=== PATIENT | female | born 1935 | race Caucasian/White ===

== ENCOUNTER → 2017-02-26 | Outpatient (CLI) | payer MEDICARE, OTHER ==
[~2017-02-26] MED LIST: /ESOM40CA; /WARF25TA; ACET65TA; ASPI81TA3 OR; BACTRIMDS PO; BISA10SU2; BISA5TA; CALC12502; CIPR500T19; COLA100C2; DIOVAN160 PO; DIOVANH160 PO; DOXYCYC100 PO; DRISDOL50 PO; EFFEXORXL7 PO; FLON0.05; HCTZ25 PO; LASIX40 PO; LISINOPR10 PO; MAALSUS; MILKSUS; MOTRIN800 PO; NAPROSY375 PO; NASONEX NASAL; OXYC10TA56; PERC5TAB8; RELAFEN PO; SENN8.6T14; THERGRAN; TRAM50TA2; TRAM50TA2 OR; VITAMIN D50000 UNT; XENICAL120 PO; ZITHROM500 PO; ZOLOFT100 PO; ZOLOFT50 PO; [UNRECOGNIZED DRUG - OTHER]
--- NOTE | 2017-02-26 14:27 | REP ---
DUPLEX CAROTID SONOGRAPHY: HISTORY: Syncope and collapse. COMPARISON STUDY: October 11, 2010 FINDINGS: Antegrade flow is observed in both vertebral arteries. RIGHT CAROTID: The right common carotid artery shows mild diffuse intimal thickening. There is mild mixed plaquing in the bulb and proximal ICA on two-dimensional scanning. Color flow and spectral Doppler interrogation are unremarkable on the right. VELOCITY CHART RIGHT CAROTID: Right CCA PSV 116 cm/s Right ICA PSV 84 EDV 23 Right ECA PSV 61 Right ICA/CCA ratio, normal 0.7 IMPRESSION: 16-49% category narrowing in the right ICA by Doppler velocity criteria. Doppler velocities have not increased in the interval since the prior ultrasound study. LEFT CAROTID: The left common carotid artery shows mild soft plaquing and diffuse intimal thickening. There is soft plaquing in the bulb and proximal ICA on two-dimensional scanning on the left side. Bifurcation is high on the left. This precludes visualization of the distal ICA on the left. Color flow and spectral Doppler interrogation are unremarkable. VELOCITY CHART LEFT CAROTID: Left CCA PSV 88 cm/s Left ICA PSV 46 EDV 13 Left ECA PSV 70 Left ICA/CCA ratio, normal 0.61 IMPRESSION: 16-49% category narrowing in the left ICA by Doppler velocity criteria. Doppler velocities have not increased in the left ICA since the prior study. Signed by Arturo Sky MD 02/26/2017 03:18 P
== END ==
LOC: M RAD 12:53
PROVIDERS: ATTEND Neurological Surgery
DX: R55 Syncope and collapse (principal)

== ENCOUNTER → 2017-03-14 | Outpatient (REF) | payer MEDICARE, OTHER ==
[2017-03-14 10:00] LABS: BASO % 0.8 % (0.0-1.0); EOS # 0.2 K/mm3 (0.0-0.50); EOS % 3.9 % (0.0-3.0); LARGE UNSTAINED CELL # 0.2 K/mm3 (0.0-0.4); LARGE UNSTAINED CELL % 2.7 % (0.0-4.0); LYMPH # 1.2 K/mm3 (1.5-4.5); LYMPH % 20.5 % (24.0-44.0); MEAN CORPUSCULAR HGB CONC 32.9 g/dl (32.0-36.5); MEAN CORPUSCULAR VOLUME 94.1 fl (80.0-96.0); MONO # 0.3 K/mm3 (0.0-0.8); MONO % 4.7 % (0.0-5.0); NEUTROPHILS # 3.8 K/mm3 (1.8-7.7); NEUTROPHILS % 67.3 % (36.0-66.0); PLATELET COUNT, AUTOMATED 255 k/mm3 (150-450); RED CELL DISTRIBUTION WIDTH 13.6 % (11.5-14.5); WHITE BLOOD COUNT 5.6 K/mm3 (4.0-10.0)
[2017-03-14 10:11] LABS: ALBUMIN 3.6 GM/DL (3.2-5.2); ALBUMIN/GLOBULIN RATIO 1.13 (1.00-1.93); ALKALINE PHOSPHATASE 74 U/L (45-117); ALT/SGPT 29 U/L (12-78); ANION GAP 5 MEQ/L (8-16); AST/SGOT 23 U/L (15-37); BILIRUBIN,TOTAL 0.4 MG/DL (0.2-1.0); BLOOD UREA NITROGEN 21 MG/DL (7-18); CALCIUM LEVEL 8.8 MG/DL (8.8-10.2); CARBON DIOXIDE LEVEL 31 MEQ/L (21-32); CHLORIDE LEVEL 107 MEQ/L (98-107); CHOLESTEROL LEVEL 211 MG/DL (<200); CREATININE FOR GFR 0.84 MG/DL (0.55-1.02); GLOMERULAR FILTRATION RATE > 60.0 (>32); GLUCOSE, FASTING 89 MG/DL (83-110); POTASSIUM SERUM 4.1 MEQ/L (3.5-5.1); SODIUM LEVEL 143 MEQ/L (136-145); TOTAL PROTEIN 6.8 GM/DL (6.4-8.2); TRIGLYCERIDES LEVEL 56 MG/DL (<150)
[2017-03-14 10:24] LABS: VITAMIN B12 LEVEL 828 PG/ML (247-911)
== END ==
LOC: M LAB REF 09:33
PROVIDERS: ATTEND Nurse Practitioner Family
DX: I10 Essential (primary) hypertension (principal); E53.8 Deficiency of other specified B group vitamins; E55.9 Vitamin D deficiency, unspecified; E78.4 Other hyperlipidemia

== ENCOUNTER → 2017-03-26 | Outpatient (REF) | payer MEDICARE, OTHER | LOC: M SMT 17:06 | PROVIDERS: ATTEND Nurse Practitioner Women's Health | DX: R39.15 Urgency of urination (principal) | CPT/HCPCS: 81001; 87088; 87186; G0463 ==

== ENCOUNTER → 2017-04-11 | Outpatient (REF) | payer MEDICARE, OTHER | LOC: M SMT 09:09 | PROVIDERS: ATTEND Nurse Practitioner Women's Health | DX: N39.0 Urinary tract infection, site not specified (principal) ==

== ENCOUNTER → 2017-05-23 | Outpatient (CLI) | payer MEDICARE, OTHER ==
--- NOTE | 2017-05-23 16:21 | REP ---
Left elbow four views : Comparison is 02/09/2005. There is no interval change. There is no fracture or dislocation. Mineralization and joint spaces are normal. There are no calcifications or foreign bodies. Impression: Negative left elbow . Signed by Manuel Fitch MD 05/23/2017 04:11 P
== END ==
LOC: M WUC 13:28
PROVIDERS: ATTEND Physician Assistant
DX: S50.02XA Contusion of left elbow, initial encounter (principal); X58.XXXA Exposure to other specified factors, initial encounter; Y92.89 Other specified places as the place of occurrence of the external cause; Y93.89 Activity, other specified; Y99.8 Other external cause status

== ENCOUNTER → 2017-09-12 | Outpatient (CLI) | payer MEDICARE, OTHER ==
[2017-09-12 14:09] LABS: BASO # 0.1 10^3/uL (0.0-0.2); BASO % 1.7 % (0.0-1.0); EOS # 0.2 10^3/uL (0.0-0.50); IMMATURE GRANULOCYTE % 0.2 % (0-0); LYMPH # 1.4 10^3/uL (1.5-4.5); LYMPH % 29.2 % (24.0-44.0); MEAN CORPUSCULAR HEMOGLOBIN 29.8 pg (27.0-33.0); MEAN CORPUSCULAR HGB CONC 32.5 g/dl (32.0-36.5); MEAN CORPUSCULAR VOLUME 91.7 fl (80.0-96.0); MONO # 0.3 10^3/uL (0.0-0.8); MONO % 7.3 % (0.0-5.0); NEUTROPHILS # 2.6 10^3/uL (1.8-7.7); NEUTROPHILS % 56.6 % (36.0-66.0); PLATELET COUNT, AUTOMATED 257 10^3/uL (150-450); RED CELL DISTRIBUTION WIDTH 14.5 % (11.5-14.5); WHITE BLOOD COUNT 4.6 10^3/uL (4.0-10.0)
[2017-09-12 14:20] LABS: ALBUMIN 3.5 GM/DL (3.2-5.2); ALBUMIN/GLOBULIN RATIO 1.17 (1.00-1.93); ALKALINE PHOSPHATASE 81 U/L (45-117); ALT/SGPT 26 U/L (12-78); ANION GAP 6 MEQ/L (8-16); AST/SGOT 23 U/L (7-37); BILIRUBIN,TOTAL 0.4 MG/DL (0.2-1.0); BLOOD UREA NITROGEN 17 MG/DL (7-18); CARBON DIOXIDE LEVEL 32 MEQ/L (21-32); CHLORIDE LEVEL 104 MEQ/L (98-107); CHOLESTEROL LEVEL 217 MG/DL (<200); CREATININE FOR GFR 0.76 MG/DL (0.55-1.02); GLOMERULAR FILTRATION RATE > 60.0 (>32); GLUCOSE, FASTING 84 MG/DL (83-110); POTASSIUM SERUM 4.4 MEQ/L (3.5-5.1); SODIUM LEVEL 142 MEQ/L (136-145); TOTAL PROTEIN 6.5 GM/DL (6.4-8.2); TRIGLYCERIDES LEVEL 57 MG/DL (<150)
== END ==
LOC: M WUC 09:04
PROVIDERS: ATTEND Nurse Practitioner Family
DX: I10 Essential (primary) hypertension (principal); E55.9 Vitamin D deficiency, unspecified

== ENCOUNTER → 2017-09-26 | Outpatient (CLI) | payer MEDICARE, OTHER ==
--- NOTE | 2017-09-26 14:32 | REP ---
Bilateral screening digital mammogram: There are no palpable abnormalities or other breast complaints. The patient states she had a clinical breast exam in September 2017. Comparison 09/04/2013. There is dense heterogeneous breast parenchyma that could obscure a lesion. This is unchanged. There are benign calcifications, unchanged. There is a focal zone of increased breast parenchymal density superolaterally on the left that is stable and unchanged. There are surgical clips medially in the right breast, unchanged. There has been no interval development of masses, areas of structural distortion or clusters of microcalcifications typical of malignancy. Impression: There is no evidence of malignancy. BI-RADS category 2 benign findings. The patient should have a repeat mammogram in 1 year. This mammogram was interpreted with the aid of an FDA-approved computer-aided detection system. A. Negative x-ray reports should not delay biopsy if a dominant or clinically suspicious mass is present. B. Not all breast cancers are identified by x-ray. C. Adenosis and dense breasts may obscure an underlying neoplasm. The patient letter being requested is M1 dense breasts.
== END ==
LOC: M WHC 11:03
PROVIDERS: ATTEND Nurse Practitioner Women's Health
DX: Z12.31 Encounter for screening mammogram for malignant neoplasm of breast (principal); Z85.3 Personal history of malignant neoplasm of breast

== ENCOUNTER → 2017-11-27 | Outpatient (CLI) | payer MEDICARE, OTHER | LOC: M WHC 10:38 | DX: M85.80 Other specified disorders of bone density and structure, unspecified site (principal); Z78.0 Asymptomatic menopausal state | CPT/HCPCS: 77080 ==

== ENCOUNTER → 2018-03-14 | Outpatient (CLI) | payer MEDICARE, OTHER ==
[2018-03-14 09:33] LABS: BASO # 0.1 10^3/uL (0.0-0.2); BASO % 1.7 % (0.0-1.0); EOS # 0.3 10^3/uL (0.0-0.50); HEMATOCRIT 41.6 % (36.0-47.0); HEMOGLOBIN 13.8 g/dl (12.0-15.5); LYMPH # 1.3 10^3/uL (1.5-4.5); LYMPH % 27.1 % (24.0-44.0); MEAN CORPUSCULAR HEMOGLOBIN 30.3 pg (27.0-33.0); MEAN CORPUSCULAR HGB CONC 33.2 g/dl (32.0-36.5); MEAN CORPUSCULAR VOLUME 91.2 fl (80.0-96.0); MONO # 0.4 10^3/uL (0.0-0.8); MONO % 7.3 % (0.0-5.0); NEUTROPHILS # 2.8 10^3/uL (1.8-7.7); NEUTROPHILS % 57.9 % (36.0-66.0); PLATELET COUNT, AUTOMATED 250 10^3/uL (150-450); RED BLOOD COUNT 4.56 10^6/uL (4.00-5.40); RED CELL DISTRIBUTION WIDTH 14.4 % (11.5-14.5); WHITE BLOOD COUNT 4.8 10^3/uL (4.0-10.0)
[2018-03-14 09:56] LABS: ALBUMIN 3.6 GM/DL (3.2-5.2); ALBUMIN/GLOBULIN RATIO 1.16 (1.00-1.93); ALKALINE PHOSPHATASE 79 U/L (45-117); ALT/SGPT 28 U/L (12-78); ANION GAP 2 MEQ/L (8-16); AST/SGOT 23 U/L (7-37); BILIRUBIN,TOTAL 0.5 MG/DL (0.2-1.0); BLOOD UREA NITROGEN 15 MG/DL (7-18); CALCIUM LEVEL 8.6 MG/DL (8.8-10.2); CARBON DIOXIDE LEVEL 32 MEQ/L (21-32); CHLORIDE LEVEL 108 MEQ/L (98-107); CHOLESTEROL LEVEL 207 MG/DL (<200); CHOLESTEROL RISK RATIO 2.029 (<5); CREATININE FOR GFR 0.78 MG/DL (0.55-1.30); GLOMERULAR FILTRATION RATE > 60.0 (>32); GLUCOSE, FASTING 81 MG/DL (70-100); HDL CHOLESTEROL 102 MG/DL (>40); LDL CHOLESTEROL 96.4 MG/DL (<100); NON-HDL-C 105 MG/DL; POTASSIUM SERUM 4.3 MEQ/L (3.5-5.1); SODIUM LEVEL 142 MEQ/L (136-145); TOTAL PROTEIN 6.7 GM/DL (6.4-8.2); TRIGLYCERIDES LEVEL 43 MG/DL (<150)
[2018-03-14 14:48] LABS: TOTAL 25(OH) VITAMIN D 66.3 NG/ML (30.0-100.0)
== END ==
LOC: M WUC 08:05
DX: I10 Essential (primary) hypertension (principal); E55.9 Vitamin D deficiency, unspecified; E78.4 Other hyperlipidemia
CPT/HCPCS: 80053

== ENCOUNTER → 2018-09-04 | Outpatient (CLI) | payer MEDICARE, OTHER ==
[2018-09-04 13:25] LABS: ALBUMIN 3.6 GM/DL (3.2-5.2); ALKALINE PHOSPHATASE 72 U/L (45-117); ALT/SGPT 29 U/L (12-78); ANION GAP 3 MEQ/L (8-16); AST/SGOT 22 U/L (7-37); BILIRUBIN,TOTAL 0.4 MG/DL (0.2-1.0); BLOOD UREA NITROGEN 20 MG/DL (7-18); CALCIUM LEVEL 8.6 MG/DL (8.8-10.2); CARBON DIOXIDE LEVEL 30 MEQ/L (21-32); CHLORIDE LEVEL 107 MEQ/L (98-107); CHOLESTEROL LEVEL 219 MG/DL (<200); CREATININE FOR GFR 0.77 MG/DL (0.55-1.30); GLOMERULAR FILTRATION RATE > 60.0 (>32); GLUCOSE, FASTING 90 MG/DL (70-100); HDL CHOLESTEROL 100 MG/DL (>40); LDL CHOLESTEROL 110 MG/DL (<100); NON-HDL-C 119 MG/DL; POTASSIUM SERUM 4.2 MEQ/L (3.5-5.1); SODIUM LEVEL 140 MEQ/L (136-145); TOTAL PROTEIN 6.6 GM/DL (6.4-8.2); TRIGLYCERIDES LEVEL 43 MG/DL (<150)
[2018-09-04 13:26] LABS: BASO # 0.1 10^3/uL (0.0-0.2); EOS # 0.3 10^3/uL (0.0-0.50); EOS % 7.3 % (0.0-3.0); HEMATOCRIT 41.7 % (36.0-47.0); HEMOGLOBIN 13.5 g/dl (12.0-15.5); IMMATURE GRANULOCYTE % 0.2 % (0-3.0); LYMPH # 1.5 10^3/uL (1.5-4.5); LYMPH % 33.5 % (24.0-44.0); MEAN CORPUSCULAR HEMOGLOBIN 30.2 pg (27.0-33.0); MEAN CORPUSCULAR HGB CONC 32.4 g/dl (32.0-36.5); MEAN CORPUSCULAR VOLUME 93.3 fl (80.0-96.0); MONO # 0.4 10^3/uL (0.0-0.8); NEUTROPHILS # 2.2 10^3/uL (1.8-7.7); PLATELET COUNT, AUTOMATED 236 10^3/uL (150-450); RED BLOOD COUNT 4.47 10^6/uL (4.00-5.40); RED CELL DISTRIBUTION WIDTH 14.5 % (11.5-14.5); WHITE BLOOD COUNT 4.5 10^3/uL (4.0-10.0)
[2018-09-04 13:32] LABS: TOTAL 25(OH) VITAMIN D 78.4 NG/ML (30.0-100.0)
== END ==
LOC: M WUC 08:49
DX: I10 Essential (primary) hypertension (principal); E55.9 Vitamin D deficiency, unspecified; E78.49 Other hyperlipidemia
CPT/HCPCS: 80053

== ENCOUNTER → 2018-09-16 | Outpatient (CLI) | payer MEDICARE, OTHER | LOC: M WHC 10:42 | DX: Z12.31 Encounter for screening mammogram for malignant neoplasm of breast (principal); Z78.0 Asymptomatic menopausal state; Z92.3 Personal history of irradiation; Z92.29 Personal history of other drug therapy; Z85.3 Personal history of malignant neoplasm of breast; Z80.0 Family history of malignant neoplasm of digestive organs | CPT/HCPCS: 77067 ==

== ENCOUNTER → 2018-09-18 | Outpatient (CLI) | payer MEDICARE, OTHER | LOC: M WUC 13:49 | DX: I10 Essential (primary) hypertension (principal) | CPT/HCPCS: 71046 ==

== ENCOUNTER → 2018-11-01 | Outpatient (CLI) | payer MEDICARE, OTHER ==
--- NOTE | 2018-11-01 11:14 | REP ---
UNILATERAL LEFT RIBS, PA CHEST, FIVE VIEWS: HISTORY: Chest pain. Linear density is present in the left lower lobe consistent with scar. The right lung is clear. The cardiac silhouette is enlarged. The pulmonary vasculature is normal in appearance. The bony structure is intact. There is scoliosis of the mid and lower thoracic spine convex to the right. IMPRESSION: Cardiomegaly. Electronically Signed by Robe Brown MD 11/01/2018 11:19 A
== END ==
LOC: M WUC 10:26
PROVIDERS: ATTEND Nurse Practitioner Family
DX: R07.9 Chest pain, unspecified (principal)

== ENCOUNTER → 2019-04-04 | Outpatient (CLI) | payer MEDICARE, OTHER ==
[~2019-04-04] MED LIST changes: -/ESOM40CA; -/WARF25TA; +COUM1TAB18; +NEXI1CAP3
[2019-04-04 09:19] LABS: BASO # 0.1 10^3/uL (0.0-0.2); BASO % 1.7 % (0.0-1.0); EOS # 0.2 10^3/uL (0.0-0.50); EOS % 4.9 % (0.0-3.0); HEMATOCRIT 41.4 % (36.0-47.0); HEMOGLOBIN 13.6 g/dl (12.0-15.5); LYMPH # 1.4 10^3/uL (1.5-4.5); LYMPH % 33.7 % (24.0-44.0); MEAN CORPUSCULAR HEMOGLOBIN 31.3 pg (27.0-33.0); MEAN CORPUSCULAR HGB CONC 32.9 g/dl (32.0-36.5); MEAN CORPUSCULAR VOLUME 95.4 fl (80.0-96.0); MONO # 0.3 10^3/uL (0.0-0.8); MONO % 8.3 % (0.0-5.0); NEUTROPHILS # 2.1 10^3/uL (1.8-7.7); NEUTROPHILS % 51.2 % (36.0-66.0); PLATELET COUNT, AUTOMATED 234 10^3/uL (150-450); RED BLOOD COUNT 4.34 10^6/uL (4.00-5.40); WHITE BLOOD COUNT 4.1 10^3/uL (4.0-10.0)
[2019-04-04 09:36] LABS: ALBUMIN 3.5 GM/DL (3.2-5.2); ALT/SGPT 29 U/L (12-78); BILIRUBIN,TOTAL 0.4 MG/DL (0.2-1.0); BLOOD UREA NITROGEN 15 MG/DL (7-18); CALCIUM LEVEL 8.9 MG/DL (8.8-10.2); CARBON DIOXIDE LEVEL 30 MEQ/L (21-32); CHLORIDE LEVEL 106 MEQ/L (98-107); CHOLESTEROL LEVEL 219 MG/DL (<200); CHOLESTEROL RISK RATIO 2.105 (<5); CREATININE FOR GFR 0.79 MG/DL (0.55-1.30); GLOMERULAR FILTRATION RATE > 60.0 (>32); GLUCOSE, FASTING 84 MG/DL (70-100); HDL CHOLESTEROL 104 MG/DL (>40); LDL CHOLESTEROL 104 MG/DL (<100); NON-HDL-C 115 MG/DL; POTASSIUM SERUM 3.9 MEQ/L (3.5-5.1); SODIUM LEVEL 141 MEQ/L (136-145); TOTAL PROTEIN 6.6 GM/DL (6.4-8.2); TRIGLYCERIDES LEVEL 55 MG/DL (<150)
[2019-04-04 09:47] LABS: TOTAL 25(OH) VITAMIN D 67.2 NG/ML (30.0-100.0)
--- NOTE | 2019-04-05 16:56 | ECGEPIP ---
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
== END ==
LOC: M LAB 08:39
PROVIDERS: ATTEND Nurse Practitioner Family
DX: I10 Essential (primary) hypertension (principal); E55.9 Vitamin D deficiency, unspecified; Z01.818 Encounter for other preprocedural examination; E78.49 Other hyperlipidemia

== ENCOUNTER → 2019-06-03 | Outpatient (REF) | payer MEDICARE, OTHER | LOC: M SFHCPLAZ 08:26 | PROVIDERS: ATTEND Nurse Practitioner Family | DX: Z00.00 Encounter for general adult medical examination without abnormal findings (principal); R53.83 Other fatigue; Z53.8 Procedure and treatment not carried out for other reasons ==

== ENCOUNTER → 2019-06-03 | Outpatient (CLI) | payer MEDICARE, OTHER ==
[2019-06-03 13:10] LABS: BASO # 0.1 10^3/uL (0.0-0.2); BASO % 1.3 % (0.0-1.0); EOS # 0.2 10^3/uL (0.0-0.50); EOS % 2.7 % (0.0-3.0); HEMATOCRIT 40.1 % (36.0-47.0); HEMOGLOBIN 13.2 g/dl (12.0-15.5); LYMPH # 1.8 10^3/uL (1.5-4.5); LYMPH % 32.6 % (24.0-44.0); MEAN CORPUSCULAR HEMOGLOBIN 31.4 pg (27.0-33.0); MEAN CORPUSCULAR HGB CONC 32.9 g/dl (32.0-36.5); MEAN CORPUSCULAR VOLUME 95.2 fl (80.0-96.0); MONO # 0.5 10^3/uL (0.0-0.8); MONO % 9.9 % (0.0-5.0); NEUTROPHILS # 2.9 10^3/uL (1.8-7.7); NEUTROPHILS % 53.3 % (36.0-66.0); PLATELET COUNT, AUTOMATED 223 10^3/uL (150-450); RED BLOOD COUNT 4.21 10^6/uL (4.00-5.40); WHITE BLOOD COUNT 5.5 10^3/uL (4.0-10.0)
[2019-06-03 13:25] LABS: ALBUMIN 3.8 GM/DL (3.2-5.2); ALT/SGPT 28 U/L (12-78); BILIRUBIN,TOTAL 0.4 MG/DL (0.2-1.0); BLOOD UREA NITROGEN 14 MG/DL (7-18); CALCIUM LEVEL 9.1 MG/DL (8.8-10.2); CARBON DIOXIDE LEVEL 28 MEQ/L (21-32); CHLORIDE LEVEL 105 MEQ/L (98-107); CREATININE FOR GFR 0.77 MG/DL (0.55-1.30); GLOMERULAR FILTRATION RATE > 60.0 (>32); GLUCOSE, FASTING 88 MG/DL (70-100); POTASSIUM SERUM 4.5 MEQ/L (3.5-5.1); SODIUM LEVEL 141 MEQ/L (136-145); TOTAL PROTEIN 6.5 GM/DL (6.4-8.2)
== END ==
LOC: M WUC 10:11
PROVIDERS: ATTEND Nurse Practitioner Family
DX: R53.83 Other fatigue (principal)
CPT/HCPCS: 36415; 80053; 84443; 85025; G0463

== ENCOUNTER 2019-08-11 13:04 | Emergency (ER) | payer MEDICARE, OTHER ==
[~2019-08-11] VITALS: Ht 167.6 cm; Wt 75.9 kg
[2019-08-11] MEDS ORDERED: COQ-100C5 PO (13:59)
[2019-08-11] MEDS ORDERED: LEXA1TAB2 PO (13:59)
[2019-08-11] MEDS ORDERED: NYST1POW9 TOP (13:59)
[2019-08-11] MEDS ORDERED: IBUP200C25 PO (13:59)
[2019-08-11] MEDS ORDERED: DIGECAP7 PO (13:59)
[2019-08-11] MEDS ORDERED: CVS50CAP PO (13:59)
[2019-08-11] MEDS ORDERED: CHOL100029 PO (13:59)
[2019-08-11] MEDS ORDERED: FISH1000 PO (13:59)
[2019-08-11] MEDS ORDERED: MIRA3350 PO (13:59)
[2019-08-11] MEDS ORDERED: KELP150T2 PO (13:59)
--- NOTE | 2019-08-11 15:02 | REP ---
CT brain: 08/11/2019. Indication: Stroke. Comparison: 07/10/2012. Technique: Unenhanced axial CT images of the brain were obtained from skull base to vertex. Findings: There is no acute intracranial hemorrhage, acute cortical infarction, mass effect or hydrocephalous. Age-related volume loss is present. Patchy areas of bilateral cerebral hemisphere white matter hypoattenuation are noted most consistent with sequelae of chronic small vessel disease. Impression: No acute intracranial process. Sequelae of chronic microangiopathic ischemic disease. Electronically Signed by Tye Arias DO 08/11/2019 02:54 P
[2019-08-11 15:11] LABS: BASO # 0.1 10^3/uL (0.0-0.2); BASO % 0.9 % (0.0-1.0); EOS % 0.7 % (0.0-3.0); HEMATOCRIT 39.1 % (36.0-47.0); LYMPH % 16.6 % (24.0-44.0); MEAN CORPUSCULAR HEMOGLOBIN 30.7 pg (27.0-33.0); MEAN CORPUSCULAR HGB CONC 33.2 g/dl (32.0-36.5); MEAN CORPUSCULAR VOLUME 92.2 fl (80.0-96.0); MONO # 0.3 10^3/uL (0.0-0.8); MONO % 5.6 % (0.0-5.0); NEUTROPHILS # 4.4 10^3/uL (1.5-8.5); NEUTROPHILS % 75.9 % (36.0-66.0); PLATELET COUNT, AUTOMATED 211 10^3/uL (150-450); RED BLOOD COUNT 4.24 10^6/uL (4.00-5.40); WHITE BLOOD COUNT 5.7 10^3/uL (4.0-10.0)
[2019-08-11 15:22] LABS: INR 0.96; PROTHROMBIN TIME 12.5 SECONDS (11.8-14.0)
[2019-08-11 15:23] LABS: PARTIAL THROMBOPLASTIN TIME 28.8 SECONDS (25.0-38.4)
--- NOTE | 2019-08-11 15:34 | REP ---
Single view chest: 08/11/2019. Indication: Stroke. Comparison: 09/18/2018. Findings: The lungs are clear. There is no pleural effusion or pneumothorax. Chronic interstitial changes are noted. The cardiac silhouette is at the upper limits of normal in size. Scoliosis and degenerative sequelae of the thoracic spine are present. Impression: Clear lungs. Electronically Signed by Tye Arias DO 08/11/2019 03:26 P
[2019-08-11 15:40] LABS: BLOOD UREA NITROGEN 13 MG/DL (7-18); CALCIUM LEVEL 8.8 MG/DL (8.8-10.2); CARBON DIOXIDE LEVEL 31 MEQ/L (21-32); CHLORIDE LEVEL 105 MEQ/L (98-107); CK-MB VALUE MASS 2.6 NG/ML (<3.6); CPK CREATINE PHOSPHOKINASE 118 U/L (26-192); CREATININE FOR GFR 0.79 MG/DL (0.55-1.30); GLOMERULAR FILTRATION RATE > 60.0 (>32); GLUCOSE, FASTING 164 MG/DL (70-100); SODIUM LEVEL 138 MEQ/L (136-145); TROPONIN I < 0.02 NG/ML (< 0.10)
[2019-08-11] MEDS ORDERED: NS 500 ML IV ONE (16:15)
[2019-08-11] MEDS ORDERED: MECLIZINE 25 MG TABLET PO ONE (16:30)
--- NOTE | 2019-08-11 19:51 | REPVR ---
PROCEDURE INFORMATION: Exam: MR Head Without Contrast Exam date and time: 08/11/2019 7:33 PM Clinical history: 83 years old, female; Dizziness; Additional info: Dizzy RO cerebellar CVA TECHNIQUE: Imaging protocol: MR of the head without contrast. COMPARISON: CT Head without contrast 08/11/2019 2:42 PM FINDINGS: Brain: No acute infarct. Bilateral cataract surgery. Moderate chronic microvascular ischemic changes. Ventricles: Normal. No ventriculomegaly. Bones/joints: Unremarkable. Soft tissues: Unremarkable. Sinuses: Normal as visualized. No acute sinusitis. Mastoid air cells: Normal as visualized. No mastoid effusion. Orbits: See Brain Finding. IMPRESSION: No acute intracranial abnormality. Electronically signed by: Jhonny Ponce On 08/11/2019 19:50:36 PM
--- NOTE | 2019-08-11 19:54 | REPVR ---
PROCEDURE INFORMATION: Exam: MR Angiogram Head Without Contrast, Arteries Exam date and time: 08/11/2019 7:33 PM Clinical history: 83 years old, female; Dizziness and giddiness; Additional info: Dizzy RO cerebellar CVA TECHNIQUE: Imaging protocol: MR angiogram head without contrast. Exam focused on the arteries. 3D rendering: MIP reconstructed images were created and reviewed. COMPARISON: CT Head without contrast 08/11/2019 2:42 PM FINDINGS: Right internal carotid artery: Unremarkable. Intracranial segment is patent with no significant stenosis. No aneurysm. Right anterior cerebral artery: Unremarkable. No occlusion or significant stenosis. No aneurysm. Right middle cerebral artery: Unremarkable. No occlusion or significant stenosis. No aneurysm. Right posterior cerebral artery: Unremarkable. No occlusion or significant stenosis. No aneurysm. Right vertebral artery: Unremarkable. No occlusion or significant stenosis. No aneurysm. Left internal carotid artery: Unremarkable. Intracranial segment is patent with no significant stenosis. No aneurysm. Left anterior cerebral artery: Unremarkable. No occlusion or significant stenosis. No aneurysm. Left middle cerebral artery: Unremarkable. No occlusion or significant stenosis. No aneurysm. Left posterior cerebral artery: Unremarkable. No occlusion or significant stenosis. No aneurysm. Left vertebral artery: Unremarkable. No occlusion or significant stenosis. No aneurysm. Basilar artery: Unremarkable. No occlusion or significant stenosis. No aneurysm. IMPRESSION: No acute abnormality. Electronically signed by: Jhonny Ponce On 08/11/2019 19:54:23 PM
--- NOTE | 2019-08-11 20:39 | ECGEPIP ---
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
[2019-08-11] MEDS ORDERED: MECL-86 PO (20:56)
[2019-08-11 21:00] VITALS: BP 131/61
== END 2019-08-11 21:36 | disposition home or self-care (01) ==
LOC: M ED 13:04 → EDBD 13:04 → M ED 21:36
DX: R42 Dizziness and giddiness (principal); S76.911A Strain of unspecified muscles, fascia and tendons at thigh level, right thigh, initial encounter; I44.0 Atrioventricular block, first degree; I67.82 Cerebral ischemia; X58.XXXA Exposure to other specified factors, initial encounter; I10 Essential (primary) hypertension; M54.5 Low back pain; Z91.048 Other nonmedicinal substance allergy status; Z79.51 Long term (current) use of inhaled steroids; Z79.891 Long term (current) use of opiate analgesic; Z79.899 Other long term (current) drug therapy

== ENCOUNTER → 2019-11-05 | Outpatient (CLI) | payer MEDICARE, OTHER ==
[~2019-11-05] MED LIST changes: +CHOL100029 PO; +COQ-100C5 PO; +CVS50CAP PO; +DIGECAP7 PO; +FISH1000 PO; +IBUP200C25 PO; +KELP150T2 PO; +LEXA1TAB2 PO; +MECL-86 PO; +MIRA3350 PO; +NYST1POW9 TOP
[2019-11-05 11:42] LABS: ALBUMIN 3.7 GM/DL (3.2-5.2); ALT/SGPT 27 U/L (12-78); BILIRUBIN,TOTAL 0.4 MG/DL (0.2-1.0); BLOOD UREA NITROGEN 19 MG/DL (7-18); CALCIUM LEVEL 9.2 MG/DL (8.8-10.2); CARBON DIOXIDE LEVEL 29 MEQ/L (21-32); CHLORIDE LEVEL 106 MEQ/L (98-107); CHOLESTEROL LEVEL 248 MG/DL (<200); CHOLESTEROL RISK RATIO 2.952 (<5); CREATININE FOR GFR 0.78 MG/DL (0.55-1.30); GLOMERULAR FILTRATION RATE > 60.0 (>32); GLUCOSE, FASTING 85 MG/DL (70-100); HDL CHOLESTEROL 84 MG/DL (>40); LDL CHOLESTEROL 149 MG/DL (<100); NON-HDL-C 164 MG/DL; POTASSIUM SERUM 4.9 MEQ/L (3.5-5.1); SODIUM LEVEL 142 MEQ/L (136-145); TOTAL PROTEIN 6.8 GM/DL (6.4-8.2); TRIGLYCERIDES LEVEL 75 MG/DL (<150)
[2019-11-05 12:09] LABS: HEMOGLOBIN A1c 5.2 %
== END ==
LOC: M WUC 09:17
PROVIDERS: ATTEND Nurse Practitioner Family
DX: E78.5 Hyperlipidemia, unspecified (principal); I10 Essential (primary) hypertension; R73.01 Impaired fasting glucose

== ENCOUNTER → 2020-06-25 | Outpatient (CLI) | payer MEDICARE, OTHER ==
[2020-06-25 17:43] LABS: BASO # 0.1 10^3/uL (0.0-0.2); BASO % 1.6 % (0.0-1.0); EOS # 0.2 10^3/uL (0.0-0.5); EOS % 4.3 % (0.0-3.0); HEMOGLOBIN 12.4 g/dl (12.0-15.5); LYMPH # 1.8 10^3/uL (1.5-5.0); LYMPH % 37.8 % (24.0-44.0); MEAN CORPUSCULAR HEMOGLOBIN 30.3 pg (27.0-33.0); MEAN CORPUSCULAR HGB CONC 32.6 g/dl (32.0-36.5); MEAN CORPUSCULAR VOLUME 92.9 fl (80.0-96.0); MONO # 0.4 10^3/uL (0.0-0.8); MONO % 8.6 % (0.0-5.0); NEUTROPHILS # 2.3 10^3/uL (1.5-8.5); NEUTROPHILS % 47.5 % (36.0-66.0); PLATELET COUNT, AUTOMATED 226 10^3/uL (150-450); RED BLOOD COUNT 4.09 10^6/uL (4.00-5.40); WHITE BLOOD COUNT 4.9 10^3/uL (4.0-10.0)
[2020-06-25 19:50] LABS: ALBUMIN 3.7 GM/DL (3.2-5.2); ALT/SGPT 31 U/L (12-78); BILIRUBIN,TOTAL 0.3 MG/DL (0.2-1.0); BLOOD UREA NITROGEN 18 MG/DL (7-18); CALCIUM LEVEL 9.1 MG/DL (8.8-10.2); CARBON DIOXIDE LEVEL 29 MEQ/L (21-32); CHLORIDE LEVEL 107 MEQ/L (98-107); CHOLESTEROL LEVEL 224 MG/DL (<200); CHOLESTEROL RISK RATIO 2.408 (<5); CREATININE FOR GFR 0.83 MG/DL (0.55-1.30); GLOMERULAR FILTRATION RATE > 60.0 (>32); GLUCOSE, FASTING 85 MG/DL (70-100); HDL CHOLESTEROL 93 MG/DL (>40); LDL CHOLESTEROL 116 MG/DL (<100); NON-HDL-C 131 MG/DL; POTASSIUM SERUM 4.2 MEQ/L (3.5-5.1); SODIUM LEVEL 142 MEQ/L (136-145); TOTAL PROTEIN 6.8 GM/DL (6.4-8.2); TRIGLYCERIDES LEVEL 74 MG/DL (<150)
== END ==
LOC: M WUC 13:31
PROVIDERS: ATTEND Nurse Practitioner Family
DX: E78.5 Hyperlipidemia, unspecified (principal); R73.01 Impaired fasting glucose

== ENCOUNTER → 2020-12-15 | Outpatient (CLI) | payer MEDICARE, OTHER ==
[2020-12-15 16:43] LABS: ALBUMIN 3.9 GM/DL (3.2-5.2); ALT/SGPT 26 U/L (12-78); BILIRUBIN,TOTAL 0.3 MG/DL (0.2-1.0); BLOOD UREA NITROGEN 21 MG/DL (7-18); CALCIUM LEVEL 9.4 MG/DL (8.8-10.2); CARBON DIOXIDE LEVEL 27 MEQ/L (21-32); CHLORIDE LEVEL 107 MEQ/L (98-107); CHOLESTEROL LEVEL 236 MG/DL (<200); CHOLESTEROL RISK RATIO 2.843 (<5); CREATININE FOR GFR 0.82 MG/DL (0.55-1.30); GLOMERULAR FILTRATION RATE > 60.0 (>32); GLUCOSE, FASTING 105 MG/DL (70-100); HDL CHOLESTEROL 83 MG/DL (>40); LDL CHOLESTEROL 134 MG/DL (<100); NON-HDL-C 153 MG/DL; POTASSIUM SERUM 4.2 MEQ/L (3.5-5.1); SODIUM LEVEL 140 MEQ/L (136-145); TOTAL PROTEIN 6.7 GM/DL (6.4-8.2); TRIGLYCERIDES LEVEL 97 MG/DL (<150)
[2020-12-15 16:48] LABS: HEMOGLOBIN A1c 5.2 %
== END ==
LOC: M WUC 13:45
PROVIDERS: ATTEND Nurse Practitioner Family
DX: E78.5 Hyperlipidemia, unspecified (principal); R73.01 Impaired fasting glucose; I10 Essential (primary) hypertension

== ENCOUNTER → 2021-03-29 | Outpatient (CLI) | payer MEDICARE, OTHER ==
[2021-03-29 17:19] LABS: ALBUMIN 4.1 GM/DL (3.2-5.2); BLOOD UREA NITROGEN 23 MG/DL (7-18); CALCIUM LEVEL 9.3 MG/DL (8.8-10.2); CARBON DIOXIDE LEVEL 27 MEQ/L (21-32); CHLORIDE LEVEL 105 MEQ/L (98-107); CREATININE FOR GFR 0.76 MG/DL (0.55-1.30); GLOMERULAR FILTRATION RATE > 60.0 (>32); GLUCOSE, FASTING 76 MG/DL (70-100); POTASSIUM SERUM 4.6 MEQ/L (3.5-5.1); SODIUM LEVEL 140 MEQ/L (136-145)
== END ==
LOC: M WUC 10:58
PROVIDERS: ATTEND Nurse Practitioner Family
DX: Z79.899 Other long term (current) drug therapy (principal); Z79.1 Long term (current) use of non-steroidal anti-inflammatories (NSAID)

== ENCOUNTER → 2021-05-27 | Outpatient (CLI) | payer MEDICARE, OTHER ==
[2021-05-27 15:47] LABS: BASO # 0.1 10^3/uL (0.0-0.2); EOS # 0.2 10^3/uL (0.0-0.5); HEMATOCRIT 40.2 % (36.0-47.0); HEMOGLOBIN 13.2 g/dl (12.0-15.5); LYMPH # 1.6 10^3/uL (1.5-5.0); LYMPH % 30.2 % (24.0-44.0); MEAN CORPUSCULAR HEMOGLOBIN 30.5 pg (27.0-33.0); MEAN CORPUSCULAR HGB CONC 32.8 g/dl (32.0-36.5); MEAN CORPUSCULAR VOLUME 92.8 fl (80.0-96.0); MONO # 0.4 10^3/uL (0.0-0.8); MONO % 7.6 % (2.0-8.0); PLATELET COUNT, AUTOMATED 243 10^3/uL (150-450); RED BLOOD COUNT 4.33 10^6/uL (4.00-5.40); WHITE BLOOD COUNT 5.3 10^3/uL (4.0-10.0)
[2021-05-27 16:06] LABS: HEMOGLOBIN A1c 5.3 %
[2021-05-27 16:13] LABS: ALBUMIN 3.7 GM/DL (3.2-5.2); ALT/SGPT 29 U/L (12-78); BILIRUBIN,TOTAL 0.3 MG/DL (0.2-1.0); BLOOD UREA NITROGEN 18 MG/DL (7-18); CALCIUM LEVEL 8.9 MG/DL (8.8-10.2); CARBON DIOXIDE LEVEL 29 MEQ/L (21-32); CHLORIDE LEVEL 107 MEQ/L (98-107); CHOLESTEROL LEVEL 226 MG/DL (<200); CHOLESTEROL RISK RATIO 3.054 (<5); CREATININE FOR GFR 0.78 MG/DL (0.55-1.30); GLOMERULAR FILTRATION RATE > 60.0 (>32); GLUCOSE, FASTING 137 MG/DL (70-100); HDL CHOLESTEROL 74 MG/DL (>40); LDL CHOLESTEROL 133 MG/DL (<100); NON-HDL-C 152 MG/DL; POTASSIUM SERUM 4.3 MEQ/L (3.5-5.1); SODIUM LEVEL 142 MEQ/L (136-145); TOTAL PROTEIN 6.3 GM/DL (6.4-8.2); TRIGLYCERIDES LEVEL 93 MG/DL (<150)
== END ==
LOC: M WUC 14:00
PROVIDERS: ATTEND Nurse Practitioner Family
DX: E78.5 Hyperlipidemia, unspecified (principal); R73.01 Impaired fasting glucose; I10 Essential (primary) hypertension

== ENCOUNTER 2021-09-04 09:54 | Emergency (ER) | payer MEDICARE, OTHER ==
[~2021-09-04] VITALS: Ht 165.1 cm; Wt 78.4 kg
--- OUTSIDE RECORDS SUMMARY | 2021-09-04 11:37 | CCD | Continuity of Care Document ---
Author Author Malissa SOTO [facility] Organization Unknown Address [address] [place] [address] Phone [phone] Care Team Providers Care Rim Technician Name Role Phone Goyo Reeder Radha MATERIAL REQUISITIONER AUTM [phone] Khadijah Telma MATERIAL REQUISITIONER AUTM [phone] Problems Description No Active Problems Social History Type Date Description Comments Sex Unknown ETOH Use Denies alcohol use Tobacco Use Start: Unknown Patient has never smoked Allergies and adverse reactions Description No Known Drug Allergies Medications Active Medications SIG Qnty Indications Ordering Provide r Date Co Q-10 100mg Capsules 1/day Unknown Ibuprofen 800mg Tablets one by mouth three two a day as needed Unknown Escitalopram Oxalate 5mg Tablets 1 by mouth every day Unknown Nystatin 072294Mows/GM Powder apply to rash 2-3 times daily Unknown Acetyl L-Carnitine 500mg Capsules Unknown B Complex Capsules Unknown Cardio Complete Capsules Unknown Catapres 0.1mg Tablets Unknown Digestive Enzymes Capsules Unknown Fish Oil 435mg Capsules Unknown Magnesium Citrate 125mg Capsules Unknown Vitamin C 250mg Tablets Unknown [place] Fluorica 3 a day Unknown 000 Cataplex D Unknown Drenamin 4 daily Unknown Immunizations Description No Information Available Vital Signs Date Vital Result Comment 05/18/2021 10:48am Height 64.50 inches 5'4.50" 04/29/2019 8:51am Body Temperature 98.9 F Results Description No Information Available Procedures Date Code Description Status 08/26/2021 71468 Therapeutic Procedure, Each 15 M inutes Completed 08/24/2021 37300 Office/Outpatient Established Lo w MDM 20-29 Min Completed 08/24/2021 42751 X-Ray Spine Thoracolumbar Ap & L ateral 2 Views Completed 08/23/2021 16668 Therapeutic Procedure, Each 15 M inutes Completed 08/19/2021 60391 Therapeutic Procedure, Each 15 M inutes Completed 08/16/2021 23672 Therapeutic Procedure, Each 15 M inutes Completed 08/08/2021 27767 Therapeutic Procedure, Each 15 M inutes Completed 08/05/2021 01769 Therapeutic Procedure, Each 15 M inutes Completed 08/02/2021 34147 Therapeutic Procedure, Each 15 M inutes Completed 07/29/2021 43504 Therapeutic Procedure, Each 15 M inutes Completed 07/26/2021 90690 Therapeutic Procedure, Each 15 M inutes Completed 07/22/2021 04337 Therapeutic Procedure, Each 15 M inutes Completed 07/19/2021 01686 Therapeutic Procedure, Each 15 M inutes Completed 07/15/2021 10104 Therapeutic Procedure, Each 15 M inutes Completed 07/12/2021 43463 Therapeutic Procedure, Each 15 M inutes Completed 07/08/2021 85160 Therapeutic Procedure, Each 15 M inutes Completed 07/05/2021 66388 Therapeutic Procedure, Each 15 M inutes Completed 07/01/2021 38638 Therapeutic Procedure, Each 15 M inutes Completed 06/28/2021 04297 Therapeutic Procedure, Each 15 M inutes Completed 06/24/2021 93857 Therapeutic Procedure, Each 15 M inutes Completed 06/21/2021 18725 Therapeutic Procedure, Each 15 M inutes Completed 06/15/2021 76693 Therapeutic Procedure, Each 15 M inutes Completed 06/13/2021 56539 Therapeutic Procedure, Each 15 M inutes Completed 06/09/2021 41430 Therapeutic Procedure, Each 15 M inutes Completed 06/06/2021 36082 Therapeutic Procedure, Each 15 M inutes Completed 05/30/2021 46329 Physical Therapy Eval - Low Comp lexity Completed 05/18/2021 58187 Office/Outpatient Established Mo d MDM 30-39 Min Completed 05/18/2021 21969 X-Ray Knee Ap & Lateral W/Obliqu es Three Views Completed 05/18/2021 72713 X-Ray Hip Unilateral With Pelvis 2-3 Views Completed Medical Devices Description No Information Available Encounters Type Date Location Provider Dx Diagnosis Office Visit 08/24/2021 2:00p Rebecca Galloway MD M2 5.552 Pain in left hip M41.9 Scoliosis, unspecified Office Visit 05/18/2021 10:30a Rebecca Galloway MD M2 5.552 Pain in left hip M77.01 Medial epicondylitis, right elbow Z96.651 Presence of right artificial knee joint Z87.81 Personal history of (healed) traumatic fracture Assessments Date Code Description Provider 08/26/2021 M25.552 Pain in left hip Danamarie Ortol ano, NURSING UNIT COORDINATOR 08/26/2021 M41.9 Scoliosis, unspecified Danamarie Ortolano, NURSING UNIT COORDINATOR 08/24/2021 M25.552 Pain in left hip Clarice segovia MD 08/24/2021 M41.9 Scoliosis, unspecified D. Andres Galloway MD 08/23/2021 M25.552 Pain in left hip Katelyn Scee P. T.A. 08/19/2021 M25.552 Pain in left hip Danamarie Ortol ano, NURSING UNIT COORDINATOR 08/16/2021 M25.552 Pain in left hip Katelyn Scee P. T.A. 08/08/2021 M25.552 Pain in left hip Brianne M. Vesp a, MSPT 08/05/2021 M25.552 Pain in left hip Danamarie Ortol ano, NURSING UNIT COORDINATOR 08/02/2021 M25.552 Pain in left hip Danamarie Ortol ano, NURSING UNIT COORDINATOR 07/29/2021 M25.552 Pain in left hip Brianne M. Vesp a, MSPT 07/26/2021 M25.552 Pain in left hip Katelyn Scee P. T.A. 07/22/2021 M25.552 Pain in left hip Danamarie Ortol ano, NURSING UNIT COORDINATOR 07/19/2021 M25.552 Pain in left hip Angela Shira romo, NURSING UNIT COORDINATOR 07/15/2021 M25.552 Pain in left hip Katelyn Scee P. T.A. 07/12/2021 M25.552 Pain in left hip Danamarie Ortol ano, NURSING UNIT COORDINATOR 07/08/2021 M25.552 Pain in left hip Danamarie Ortol ano, NURSING UNIT COORDINATOR 07/05/2021 M25.552 Pain in left hip Brianne M. Vesp a, MSPT 07/01/2021 M25.552 Pain in left hip Danamarie Ortol ano, NURSING UNIT COORDINATOR 06/28/2021 M25.552 Pain in left hip Danamarie Ortol ano, NURSING UNIT COORDINATOR 06/24/2021 M25.552 Pain in left hip Brianne M. Vesp a, MSPT 06/21/2021 M25.552 Pain in left hip Katelyn Scee P. T.A. 06/15/2021 M25.552 Pain in left hip Katelyn Scee P. T.A. 06/13/2021 M25.552 Pain in left hip Katelyn Scee P. T.A. 06/09/2021 M25.552 Pain in left hip Danamarie Ortol ano, NURSING UNIT COORDINATOR 06/06/2021 M25.552 Pain in left hip Katelyn Scee P. T.A. 05/30/2021 M25.552 Pain in left hip Brianne M. Vesp a, MSPT 05/18/2021 M25.552 Pain in left hip Clarice segovia MD 05/18/2021 M77.01 Medial epicondylitis, right elbo w Clarice Galloway MD 05/18/2021 Z96.651 Presence of right artificial kne e joint Clarice Galloway MD 05/18/2021 Z87.81 Personal history of (healed) tra umatic fracture Clarice Galloway MD Plan of Treatment Future Appointment(s):* 09/07/2021 11:00 am - Angela Soto, NURSING UNIT COORDINATOR at Physical Therapy * 09/05/2021 11:00 am - Brianne Arana MSPT at Physical Therapy * 09/01/2021 2:00 pm - Katelyn Green P.T.A. at Physical Therapy Functional Status Description No Information Available Mental Status Description No Information Available Referrals Refer to Dr Reason for Referral Status Appt Date Radha Galloway MD Physical Therapy Left Hip, n o auth req based on medical necessity, patient is going to [facility] passed to PT dept sw. Created [address] [place] [address], [address] [address] [phone] Radha Galloway MD Physical Therapy Left Hip no auth req per automated line, patient going to [facility] passed to PT dept sw. Created [address] [place] [address], [address] [address] [phone]
--- OUTSIDE RECORDS SUMMARY | 2021-09-04 11:37 | CCD | Continuity of Care Document ---
Author Author Malissa SOTO [facility] Organization Unknown Address [address] [place] [address] Phone [phone] Care Team Providers Care Neonatal Intensive Care Nurse Name Role Phone Goyo Reeder Radha NITROGLYCERIN NEUTRALIZER AUTM [phone] Khadijah Telma NITROGLYCERIN NEUTRALIZER AUTM [phone] Problems Description No Active Problems Social History [...] 1 by mouth every day Unknown Nystatin 277849Nafm/GM Powder apply to rash 2-3 times daily [...] Available Procedures Date Code Description Status 08/26/2021 06469 Therapeutic Procedure, Each 15 M inutes Completed 08/24/2021 96669 Office/Outpatient Established Lo w MDM 20-29 Min Completed 08/24/2021 67569 X-Ray Spine Thoracolumbar Ap & L ateral 2 Views Completed 08/23/2021 56821 Therapeutic Procedure, Each 15 M inutes Completed 08/19/2021 96683 Therapeutic Procedure, Each 15 M inutes Completed 08/16/2021 20462 Therapeutic Procedure, Each 15 M inutes Completed 08/08/2021 67338 Therapeutic Procedure, Each 15 M inutes Completed 08/05/2021 87149 Therapeutic Procedure, Each 15 M inutes Completed 08/02/2021 09007 Therapeutic Procedure, Each 15 M inutes Completed 07/29/2021 07497 Therapeutic Procedure, Each 15 M inutes Completed 07/26/2021 98901 Therapeutic Procedure, Each 15 M inutes Completed 07/22/2021 56540 Therapeutic Procedure, Each 15 M inutes Completed 07/19/2021 91824 Therapeutic Procedure, Each 15 M inutes Completed 07/15/2021 18211 Therapeutic Procedure, Each 15 M inutes Completed 07/12/2021 45373 Therapeutic Procedure, Each 15 M inutes Completed 07/08/2021 37111 Therapeutic Procedure, Each 15 M inutes Completed 07/05/2021 34670 Therapeutic Procedure, Each 15 M inutes Completed 07/01/2021 23658 Therapeutic Procedure, Each 15 M inutes Completed 06/28/2021 32381 Therapeutic Procedure, Each 15 M inutes Completed 06/24/2021 48699 Therapeutic Procedure, Each 15 M inutes Completed 06/21/2021 67462 Therapeutic Procedure, Each 15 M inutes Completed 06/15/2021 14961 Therapeutic Procedure, Each 15 M inutes Completed 06/13/2021 60114 Therapeutic Procedure, Each 15 M inutes Completed 06/09/2021 18287 Therapeutic Procedure, Each 15 M inutes Completed 06/06/2021 08749 Therapeutic Procedure, Each 15 M inutes Completed 05/30/2021 09745 Physical Therapy Eval - Low Comp lexity Completed 05/18/2021 18752 Office/Outpatient Established Mo d MDM 30-39 Min Completed 05/18/2021 17641 X-Ray Knee Ap & Lateral W/Obliqu es Three Views Completed 05/18/2021 99108 X-Ray Hip Unilateral With Pelvis 2-3 Views [...] Pain in left hip Danamarie Ortol ano, COAT CUTTER 08/26/2021 M41.9 Scoliosis, unspecified Danamarie Ortolano, COAT CUTTER 08/24/2021 M25.552 Pain in left hip Clarice segovia MD 08/24/2021 M41.9 Scoliosis, unspecified D. Andres Galloway MD 08/23/2021 M25.552 Pain in left hip Katelyn Scee P. T.A. 08/19/2021 M25.552 Pain in left hip Danamarie Ortol ano, COAT CUTTER 08/16/2021 M25.552 Pain in left hip Katelyn Scee P. T.A. 08/08/2021 M25.552 Pain in left hip Brianne M. Vesp a, MSPT 08/05/2021 M25.552 Pain in left hip Danamarie Ortol ano, COAT CUTTER 08/02/2021 M25.552 Pain in left hip Danamarie Ortol ano, COAT CUTTER 07/29/2021 M25.552 Pain in left hip Brianne M. Vesp a, MSPT 07/26/2021 M25.552 Pain in left hip Katelyn Scee P. T.A. 07/22/2021 M25.552 Pain in left hip Danamarie Ortol ano, COAT CUTTER 07/19/2021 M25.552 Pain in left hip Angela Shira romo, COAT CUTTER 07/15/2021 M25.552 Pain in left hip Katelyn Scee P. T.A. 07/12/2021 M25.552 Pain in left hip Danamarie Ortol ano, COAT CUTTER 07/08/2021 M25.552 Pain in left hip Danamarie Ortol ano, COAT CUTTER 07/05/2021 M25.552 Pain in left hip Brianne M. Vesp a, MSPT 07/01/2021 M25.552 Pain in left hip Danamarie Ortol ano, COAT CUTTER 06/28/2021 M25.552 Pain in left hip Danamarie Ortol ano, COAT CUTTER 06/24/2021 M25.552 Pain in left hip Brianne M. Vesp a, MSPT 06/21/2021 M25.552 Pain in left hip Katelyn Scee P. T.A. 06/15/2021 M25.552 Pain in left hip Katelyn Scee P. T.A. 06/13/2021 M25.552 Pain in left hip Katelyn Scee P. T.A. 06/09/2021 M25.552 Pain in left hip Danamarie Ortol ano, COAT CUTTER 06/06/2021 M25.552 Pain in left hip Katelyn [...] Appointment(s):* 09/07/2021 11:00 am - Angela Soto, COAT CUTTER at Physical Therapy * 09/05/2021 11:00 am [...] [facility] passed to PT dept sw. Created [address] [place] [address], [address] [address] [phone] Radha Galloway MD Physical Therapy Left Hip no auth req per automated line, patient going to [facility] passed to PT dept sw. Created [address] [place] [address], [address] [address] [phone]
--- OUTSIDE RECORDS SUMMARY | 2021-09-04 11:37 | CCD | Continuity of Care Document ---
Author Author Malissa MADDEN [facility] Organization Unknown Address [address] [place] [address] Phone [phone] Care Team Providers Care Formulation Chemist Name Role Phone Goyo Reeder GENERAL ASSEMBLER AUTM [phone] KhadijahTelma GENERAL ASSEMBLER AUTM [phone] Problems Description No Active Problems Social History [...] 1 by mouth every day Unknown Nystatin 915322Qknt/GM Powder apply to rash 2-3 times daily [...] Information Available Procedures Date Code Description Status 08/24/2021 60796 X-Ray Spine Thoracolumbar Ap & L ateral 2 Views Completed 08/24/2021 96000 Office/Outpatient Established Lo w MDM 20-29 Min Completed 08/23/2021 52346 Therapeutic Procedure, Each 15 M inutes Completed 08/19/2021 95201 Therapeutic Procedure, Each 15 M inutes Completed 08/16/2021 03864 Therapeutic Procedure, Each 15 M inutes Completed 08/08/2021 56329 Therapeutic Procedure, Each 15 M inutes Completed 08/05/2021 87375 Therapeutic Procedure, Each 15 M inutes Completed 08/02/2021 48604 Therapeutic Procedure, Each 15 M inutes Completed 07/29/2021 48843 Therapeutic Procedure, Each 15 M inutes Completed 07/26/2021 12385 Therapeutic Procedure, Each 15 M inutes Completed 07/22/2021 18735 Therapeutic Procedure, Each 15 M inutes Completed 07/19/2021 07112 Therapeutic Procedure, Each 15 M inutes Completed 07/15/2021 39321 Therapeutic Procedure, Each 15 M inutes Completed 07/12/2021 34256 Therapeutic Procedure, Each 15 M inutes Completed 07/08/2021 40365 Therapeutic Procedure, Each 15 M inutes Completed 07/05/2021 15170 Therapeutic Procedure, Each 15 M inutes Completed 07/01/2021 97734 Therapeutic Procedure, Each 15 M inutes Completed 06/28/2021 62694 Therapeutic Procedure, Each 15 M inutes Completed 06/24/2021 07689 Therapeutic Procedure, Each 15 M inutes Completed 06/21/2021 30441 Therapeutic Procedure, Each 15 M inutes Completed 06/15/2021 90840 Therapeutic Procedure, Each 15 M inutes Completed 06/13/2021 86301 Therapeutic Procedure, Each 15 M inutes Completed 06/09/2021 50955 Therapeutic Procedure, Each 15 M inutes Completed 06/06/2021 43559 Therapeutic Procedure, Each 15 M inutes Completed 05/30/2021 42697 Physical Therapy Eval - Low Comp lexity Completed 05/18/2021 60037 Office/Outpatient Established Mo d MDM 30-39 Min Completed 05/18/2021 23639 X-Ray Knee Ap & Lateral W/Obliqu es Three Views Completed 05/18/2021 96652 X-Ray Hip Unilateral With Pelvis 2-3 Views [...] traumatic fracture Assessments Date Code Description Provider 08/24/2021 M25.552 Pain in left hip Clarice segovia MD 08/24/2021 M41.9 Scoliosis, unspecified Clarice Galloway MD 08/23/2021 M25.552 Pain in left hip Katelyn Scee P. T.A. 08/19/2021 M25.552 Pain in left hip Danamarie Ortol ano, ASSISTED LIVING HOUSEKEEPER 08/16/2021 M25.552 Pain in left hip Katelyn Scee P. T.A. 08/08/2021 M25.552 Pain in left hip Brianne M. Vesp a, MSPT 08/05/2021 M25.552 Pain in left hip Danamarie Ortol ano, ASSISTED LIVING HOUSEKEEPER 08/02/2021 M25.552 Pain in left hip Danamarie Ortol ano, ASSISTED LIVING HOUSEKEEPER 07/29/2021 M25.552 Pain in left hip Brianne M. Vesp a, MSPT 07/26/2021 M25.552 Pain in left hip Katelyn Scee P. T.A. 07/22/2021 M25.552 Pain in left hip Danamarie Ortol ano, ASSISTED LIVING HOUSEKEEPER 07/19/2021 M25.552 Pain in left hip Angela Shira Kra demetrius, ASSISTED LIVING HOUSEKEEPER 07/15/2021 M25.552 Pain in left hip Katelyn Scee P. T.A. 07/12/2021 M25.552 Pain in left hip Danamarie Ortol ano, ASSISTED LIVING HOUSEKEEPER 07/08/2021 M25.552 Pain in left hip Danamarie Ortol ano, ASSISTED LIVING HOUSEKEEPER 07/05/2021 M25.552 Pain in left hip Brianne Roderick. Amandap a, MSPT 07/01/2021 M25.552 Pain in left hip Danamarie Ortol ano, ASSISTED LIVING HOUSEKEEPER 06/28/2021 M25.552 Pain in left hip Danamarie Ortol ano, ASSISTED LIVING HOUSEKEEPER 06/24/2021 M25.552 Pain in left hip Brianne Vaughn. Amandap a, MSPT 06/21/2021 M25.552 Pain in left hip Katelyn Scee P. T.A. 06/15/2021 M25.552 Pain in left hip Katelyn Scee P. T.A. 06/13/2021 M25.552 Pain in left hip Katelyn Scee P. T.A. 06/09/2021 M25.552 Pain in left hip Danamarie Ortol ano, ASSISTED LIVING HOUSEKEEPER 06/06/2021 M25.552 Pain in left hip Katelyn Scee P. T.A. 05/30/2021 M25.552 Pain in left hip Brianne Vaughn. Amandap a, MSPT 05/18/2021 M25.552 Pain in left hip Clarice segovia MD 05/18/2021 M77.01 Medial epicondylitis, right elbo w Clarice Galloway MD 05/18/2021 Z96.651 Presence of right artificial kne e joint Clarice Galloway MD 05/18/2021 Z87.81 Personal history of (healed) tra umatic fracture Clarice Galloway MD Plan of Treatment Future Appointment(s):* 09/05/2021 11:00 am - ESTRELLITA Shaffer at Physical Therapy * 09/01/2021 2:00 pm - Katelyn Scee P.T.A. at Physical Therapy * 08/29/2021 1:30 pm - Angela Hart PTA at Physical Therapy Functional Status Description No Information Available Mental Status Description No Information Available Referrals Refer to Dr Reason for Referral Status Appt Radha Carl MD Physical Therapy Left Hip, n o auth req based on medical necessity, patient is going to [facility] passed to PT dept sw. Created [address] [place] [address], [address] [place] [phone] Radha Galloway MD Physical Therapy Left Hip no auth req per automated line, patient going to [facility] passed to PT dept sw. Created [address] [place] [address], [address] [address] [phone]
--- OUTSIDE RECORDS SUMMARY | 2021-09-04 11:37 | CCD | Continuity of Care Document ---
Author Author Malissa MADDEN [facility] Organization Unknown Address [address] [place] [address] Phone [phone] Care Team Providers Care Supervisor Title Name Role Phone Goyo Reeder AIRCRAFT MAINTENANCE ENGINEER AUTM [phone] KhadijahTelma AIRCRAFT MAINTENANCE ENGINEER AUTM [phone] Problems Description No Active Problems Social History [...] 1 by mouth every day Unknown Nystatin 074381Qzqd/GM Powder apply to rash 2-3 times daily [...] Information Available Procedures Date Code Description Status 08/19/2021 23320 Therapeutic Procedure, Each 15 M inutes Completed 08/16/2021 72621 Therapeutic Procedure, Each 15 M inutes Completed 08/08/2021 09483 Therapeutic Procedure, Each 15 M inutes Completed 08/05/2021 60775 Therapeutic Procedure, Each 15 M inutes Completed 08/02/2021 10042 Therapeutic Procedure, Each 15 M inutes Completed 07/29/2021 91626 Therapeutic Procedure, Each 15 M inutes Completed 07/26/2021 78319 Therapeutic Procedure, Each 15 M inutes Completed 07/22/2021 82626 Therapeutic Procedure, Each 15 M inutes Completed 07/19/2021 01471 Therapeutic Procedure, Each 15 M inutes Completed 07/15/2021 63046 Therapeutic Procedure, Each 15 M inutes Completed 07/12/2021 04697 Therapeutic Procedure, Each 15 M inutes Completed 07/08/2021 65349 Therapeutic Procedure, Each 15 M inutes Completed 07/05/2021 92545 Therapeutic Procedure, Each 15 M inutes Completed 07/01/2021 92919 Therapeutic Procedure, Each 15 M inutes Completed 06/28/2021 31267 Therapeutic Procedure, Each 15 M inutes Completed 06/24/2021 63377 Therapeutic Procedure, Each 15 M inutes Completed 06/21/2021 18673 Therapeutic Procedure, Each 15 M inutes Completed 06/15/2021 36835 Therapeutic Procedure, Each 15 M inutes Completed 06/13/2021 43587 Therapeutic Procedure, Each 15 M inutes Completed 06/09/2021 71479 Therapeutic Procedure, Each 15 M inutes Completed 06/06/2021 26707 Therapeutic Procedure, Each 15 M inutes Completed 05/30/2021 99060 Physical Therapy Eval - Low Comp lexity Completed 05/18/2021 94705 Office/Outpatient Established Mo d MDM 30-39 Min Completed 05/18/2021 16039 X-Ray Knee Ap & Lateral W/Obliqu es Three Views Completed 05/18/2021 84595 X-Ray Hip Unilateral With Pelvis 2-3 Views Completed Medical Devices Description No Information Available Encounters Type Date Location Provider Dx Diagnosis Office Visit 05/18/2021 10:30a Rebecca Galloway MD M2 5.552 Pain in left hip M77.01 Medial epicondylitis, right elbow Z96.651 Presence of right artificial knee joint Z87.81 Personal history of (healed) traumatic fracture Assessments Date Code Description Provider 08/19/2021 M25.552 Pain in left hip Danamarie Ortol ano, DEPARTMENT CLERK 08/16/2021 M25.552 Pain in left hip Katelyn Scee P. T.A. 08/08/2021 M25.552 Pain in left hip Brianne M. Vesp a, MSPT 08/05/2021 M25.552 Pain in left hip Danamarie Ortol ano, DEPARTMENT CLERK 08/02/2021 M25.552 Pain in left hip Danamarie Ortol ano, DEPARTMENT CLERK 07/29/2021 M25.552 Pain in left hip Brianne M. Vesp a, MSPT 07/26/2021 M25.552 Pain in left hip Katelyn Scee P. T.A. 07/22/2021 M25.552 Pain in left hip Danamarie Ortol ano, DEPARTMENT CLERK 07/19/2021 M25.552 Pain in left hip Angela Shira Kra demetrius, DEPARTMENT CLERK 07/15/2021 M25.552 Pain in left hip Katelyn Scee P. T.A. 07/12/2021 M25.552 Pain in left hip Danamarie Ortol ano, DEPARTMENT CLERK 07/08/2021 M25.552 Pain in left hip Danamarie Ortol ano, DEPARTMENT CLERK 07/05/2021 M25.552 Pain in left hip Brianne M. Vesp a, MSPT 07/01/2021 M25.552 Pain in left hip Danamarie Ortol ano, DEPARTMENT CLERK 06/28/2021 M25.552 Pain in left hip Danamarie Ortol ano, DEPARTMENT CLERK 06/24/2021 M25.552 Pain in left hip Brianne M. Vesp a, MSPT 06/21/2021 M25.552 Pain in left hip Katelyn Scee P. T.A. 06/15/2021 M25.552 Pain in left hip Katelyn Scee P. T.A. 06/13/2021 M25.552 Pain in left hip Katelyn Scee P. T.A. 06/09/2021 M25.552 Pain in left hip Samina armstrong, DEPARTMENT CLERK 06/06/2021 M25.552 Pain in left hip Katelyn Scee P. T.A. 05/30/2021 M25.552 Pain in left hip Brianne og, MSPT 05/18/2021 M25.552 Pain in left hip Clarice segovia MD 05/18/2021 M77.01 Medial epicondylitis, right elbo w Clarice Galloway MD 05/18/2021 Z96.651 Presence of right artificial kne e joint Clarice Galloway MD 05/18/2021 Z87.81 Personal history of (healed) tra umatic fracture Clarice Galloway MD Plan of Treatment Future Appointment(s):* 08/26/2021 11:00 am - Samina Madden PTA at Physical Therapy * 08/23/2021 11:00 am - Katelyn Scee P.T.A. at Physical Therapy * 08/24/2021 2:00 pm - Clarice Galloway MD at [place] Functional Status Description No Information Available Mental Status Description No Information Available Referrals Refer to Dr Reason for Referral Status Appt Radha Galloway MD Physical Therapy Left Hip, n o auth req based on medical necessity, patient is going to [facility] passed to PT dept sw. Created [address] [place] [address] [phone] Radha Galloway MD Physical Therapy Left Hip no auth req per automated line, patient going to [facility] passed to PT dept sw. Created [address] [place] [phone]
--- OUTSIDE RECORDS SUMMARY | 2021-09-04 11:38 | CCD | Continuity of Care Document ---
Author Author Malissa [facility] Organization Unknown Address [address] [place] [address], [address] [address] Phone [phone] Care Team Providers Care Diving Instructor Name Role Phone Goyo Reeder Radha BODY COMPONENT ENGINEER AUTM [phone] ErnstTelma claudio BODY COMPONENT ENGINEER AUTM [phone] Problems Description No Active Problems Social History [...] 1 by mouth every day Unknown Nystatin 376143Jaim/GM Powder apply to rash 2-3 times daily [...] Information Available Procedures Date Code Description Status 08/16/2021 24081 Therapeutic Procedure, Each 15 M inutes Completed 08/08/2021 59230 Therapeutic Procedure, Each 15 M inutes Completed 08/05/2021 03230 Therapeutic Procedure, Each 15 M inutes Completed 08/02/2021 31958 Therapeutic Procedure, Each 15 M inutes Completed 07/29/2021 40118 Therapeutic Procedure, Each 15 M inutes Completed 07/26/2021 98179 Therapeutic Procedure, Each 15 M inutes Completed 07/22/2021 62977 Therapeutic Procedure, Each 15 M inutes Completed 07/19/2021 16734 Therapeutic Procedure, Each 15 M inutes Completed 07/15/2021 41405 Therapeutic Procedure, Each 15 M inutes Completed 07/12/2021 22188 Therapeutic Procedure, Each 15 M inutes Completed 07/08/2021 89095 Therapeutic Procedure, Each 15 M inutes Completed 07/05/2021 79365 Therapeutic Procedure, Each 15 M inutes Completed 07/01/2021 21005 Therapeutic Procedure, Each 15 M inutes Completed 06/28/2021 56360 Therapeutic Procedure, Each 15 M inutes Completed 06/24/2021 69987 Therapeutic Procedure, Each 15 M inutes Completed 06/21/2021 39054 Therapeutic Procedure, Each 15 M inutes Completed 06/15/2021 89727 Therapeutic Procedure, Each 15 M inutes Completed 06/13/2021 89484 Therapeutic Procedure, Each 15 M inutes Completed 06/09/2021 10129 Therapeutic Procedure, Each 15 M inutes Completed 06/06/2021 55972 Therapeutic Procedure, Each 15 M inutes Completed 05/30/2021 84736 Physical Therapy Eval - Low Comp lexity Completed 05/18/2021 40633 Office/Outpatient Established Mo d MDM 30-39 Min Completed 05/18/2021 31725 X-Ray Knee Ap & Lateral W/Obliqu es Three Views Completed 05/18/2021 28985 X-Ray Hip Unilateral With Pelvis 2-3 Views Completed Medical Devices Description No Information Available Encounters Type Date Location Provider Dx Diagnosis Office Visit 05/18/2021 10:30a Rebecca Galloway MD M2 5.552 Pain in left hip M77.01 Medial epicondylitis, right elbow Z96.651 Presence of right artificial knee joint Z87.81 Personal history of (healed) traumatic fracture Assessments Date Code Description Provider 08/16/2021 M25.552 Pain in left hip Katelyn Scee P. T.A. 08/08/2021 M25.552 Pain in left hip Brianne M. Vesp a, MSPT 08/05/2021 M25.552 Pain in left hip Danamarie Ortol ano, QUILLER RUNNER 08/02/2021 M25.552 Pain in left hip Danamarie Ortol ano, QUILLER RUNNER 07/29/2021 M25.552 Pain in left hip Brianne M. Vesp a, MSPT 07/26/2021 M25.552 Pain in left hip Katelyn Scee P. T.A. 07/22/2021 M25.552 Pain in left hip Danamarie Ortol ano, QUILLER RUNNER 07/19/2021 M25.552 Pain in left hip Angela Shira Kra demetrius, QUILLER RUNNER 07/15/2021 M25.552 Pain in left hip Katelyn Scee P. T.A. 07/12/2021 M25.552 Pain in left hip Danamarie Ortol ano, QUILLER RUNNER 07/08/2021 M25.552 Pain in left hip Danamarie Ortol ano, QUILLER RUNNER 07/05/2021 M25.552 Pain in left hip Brianne M. Vesp a, MSPT 07/01/2021 M25.552 Pain in left hip Danamarie Ortol ano, QUILLER RUNNER 06/28/2021 M25.552 Pain in left hip Danamarie Ortol ano, QUILLER RUNNER 06/24/2021 M25.552 Pain in left hip Brianne M. Vesp a, MSPT 06/21/2021 M25.552 Pain in left hip Katelyn Scee P. T.A. 06/15/2021 M25.552 Pain in left hip Katelyn Scee P. T.A. 06/13/2021 M25.552 Pain in left hip Katelyn Scee P. T.A. 06/09/2021 M25.552 Pain in left hip Danamarie Ortol ano, QUILLER RUNNER 06/06/2021 M25.552 Pain in left hip Katelyn Green P. T.A. 05/30/2021 M25.552 [facility] in left [facility] 05/18/2021 M25.552 Pain in left hip Clarice segovia MD 05/18/2021 M77.01 Medial epicondylitis, right elbo w Clarice Galloway MD 05/18/2021 Z96.651 Presence of right artificial kne e joint Clarice Galloway MD 05/18/2021 Z87.81 Personal history of (healed) tra umatic fracture Clarice Galloway MD Plan of Treatment Future Appointment(s):* 08/26/2021 11:00 am - Samina Shultz PTA at Physical Therapy * 08/23/2021 11:00 am - Katelyn Green P.T.A. at Physical Therapy * 08/19/2021 11:30 am - Samina Shultz PTA at Physical Therapy * 08/24/2021 2:00 pm - Clarice Galloway MD at [place] Functional Status Description No Information Available Mental Status Description No Information Available Referrals Refer to Dr Reason for Referral Status Appt Date Radha Galloway MD Physical Therapy Left Hip, n o auth req based on medical necessity, patient is going to [facility] passed to PT dept sw. Created [address] [place] [phone] Radha Galloway MD Physical Therapy Left Hip no auth req per automated line, patient going to [facility] passed to PT dept sw. Created [address] [place] [phone]
--- OUTSIDE RECORDS SUMMARY | 2021-09-04 11:38 | CCD ---
Continuity of Care Document (CCD) Created on: 08/02/2021 Malissa Bustamante External Reference #: [id number] : [id number] Sex: Female Author Author Malissa MADDEN [facility] Organization Unknown Address [address] [address] Phone [phone] Care Team Providers Care Artisan Plasterer Name Role Phone Goyo Reeder DIGITAL PRODUCER AUTM [phone] ErnstTelma claudio DIGITAL PRODUCER AUTM [phone] Problems Description No Active Problems Social History Type Date Description Comments Sex Unknown ETOH Use Denies alcohol use Tobacco Use Start: Unknown Patient has never smoked Smoking Status Reviewed: 08/13/19 Patient has never smoked Allergies and adverse reactions Description No Known Drug Allergies Medications Active Medications SIG Qnty Indications Ordering Provide r Date Co Q-10 100mg Capsules 1/day Unknown Ibuprofen 800mg Tablets one by mouth three two a day as needed Unknown Escitalopram Oxalate 5mg Tablets 1 by mouth every day Unknown Nystatin 804972Feyy/GM Powder apply to rash 2-3 times daily [...] Information Available Procedures Date Code Description Status 07/29/2021 91087 Therapeutic Procedure, Each 15 M inutes Completed 07/26/2021 94622 Therapeutic Procedure, Each 15 M inutes Completed 07/22/2021 27545 Therapeutic Procedure, Each 15 M inutes Completed 07/19/2021 47088 Therapeutic Procedure, Each 15 M inutes Completed 07/15/2021 26834 Therapeutic Procedure, Each 15 M inutes Completed 07/12/2021 70207 Therapeutic Procedure, Each 15 M inutes Completed 07/08/2021 46487 Therapeutic Procedure, Each 15 M inutes Completed 07/05/2021 65443 Therapeutic Procedure, Each 15 M inutes Completed 07/01/2021 46709 Therapeutic Procedure, Each 15 M inutes Completed 06/28/2021 51745 Therapeutic Procedure, Each 15 M inutes Completed 06/24/2021 15342 Therapeutic Procedure, Each 15 M inutes Completed 06/21/2021 34407 Therapeutic Procedure, Each 15 M inutes Completed 06/15/2021 16260 Therapeutic Procedure, Each 15 M inutes Completed 06/13/2021 89520 Therapeutic Procedure, Each 15 M inutes Completed 06/09/2021 69060 Therapeutic Procedure, Each 15 M inutes Completed 06/06/2021 27573 Therapeutic Procedure, Each 15 M inutes Completed 05/30/2021 12829 Physical Therapy Eval - Low Comp lexity Completed 05/18/2021 99958 Office/Outpatient Established Mo d MDM 30-39 Min Completed 05/18/2021 47878 X-Ray Knee Ap & Lateral W/Obliqu es Three Views Completed 05/18/2021 91143 X-Ray Hip Unilateral With Pelvis 2-3 Views Completed Medical Devices Description No Information Available Encounters Type Date Location Provider Dx Diagnosis Office Visit 05/18/2021 10:30a Rebecca Galloway MD M2 5.552 Pain in left hip M77.01 Medial epicondylitis, right elbow Z96.651 Presence of right artificial knee joint Z87.81 Personal history of (healed) traumatic fracture Assessments Date Code Description Provider 07/29/2021 M25.552 [facility] 07/26/2021 M25.552 Pain in left hip Katelyn Scee P. T.A. 07/22/2021 M25.552 Pain in left hip Danamarie Ortol ano, CYTOLOGY TECHNOLOGIST 07/19/2021 M25.552 Pain in left hip Angela Silva Kra demetrius, CYTOLOGY TECHNOLOGIST 07/15/2021 M25.552 Pain in left hip Katelyn Scee P. T.A. 07/12/2021 M25.552 Pain in left hip Danamarie Ortol ano, CYTOLOGY TECHNOLOGIST 07/08/2021 M25.552 Pain in left hip Danamarie Ortol ano, CYTOLOGY TECHNOLOGIST 07/05/2021 M25.552 Pain in left hip Brianne M. Vesp a, MSPT 07/01/2021 M25.552 Pain in left hip Danamarie Ortol ano, CYTOLOGY TECHNOLOGIST 06/28/2021 M25.552 Pain in left hip Danamarie Ortol ano, CYTOLOGY TECHNOLOGIST 06/24/2021 M25.552 Pain in left hip Brianne M. Vesp a, MSPT 06/21/2021 M25.552 Pain in left hip Katelyn Scee P. T.A. 06/15/2021 M25.552 Pain in left hip Katelyn Scee P. T.A. 06/13/2021 M25.552 Pain in left hip Katelyn Scee P. T.A. 06/09/2021 M25.552 Pain in left hip Danamarie Ortol ano, CYTOLOGY TECHNOLOGIST 06/06/2021 M25.552 Pain in left hip Katelyn [...] Galloway MD Plan of Treatment Future Appointment(s):* 08/12/2021 11:00 am - Katelyn Green P.T.A. at Physical Therapy * 08/08/2021 11:00 am - Brianne Arana MSPT at Physical Therapy * 08/05/2021 11:00 am - Samina Madden PTA at Physical Therapy * 08/24/2021 2:00 pm - Clarice Galloway MD at [place] Functional Status Description No Information Available Mental Status Description No Information Available Referrals Refer to Dr Reason for Referral Status Appt Date Radha Galloway MD Physical Therapy Left Hip, n o auth req based on medical necessity, patient is going to [facility] passed to PT dept sw. Created [address] [place] [address] [phone] Radha Galloway MD Physical Therapy Left Hip no auth req per automated line, patient going to [facility] passed to PT dept sw. Created [address] [place] [phone]
--- OUTSIDE RECORDS SUMMARY | 2021-09-04 11:38 | CCD | Continuity of Care Document ---
Author Author Malissa MADDEN [facility] Organization Unknown Address [address] [place] [address] Phone [phone] Care Team Providers Care Apparel Embroidery Digitizer Name Role Phone Goyo Reeder BENCH LATHE OPERATOR AUTM [phone] KhadijahTelma BENCH LATHE OPERATOR AUTM [phone] Problems Description No Active Problems Social History [...] 1 by mouth every day Unknown Nystatin 644922Fyzs/GM Powder apply to rash 2-3 times daily [...] Available Procedures Date Code Description Status 08/16/2021 04856 Therapeutic Procedure, Each 15 M inutes Completed 08/08/2021 66033 Therapeutic Procedure, Each 15 M inutes Completed 08/05/2021 28122 Therapeutic Procedure, Each 15 M inutes Completed 08/02/2021 70092 Therapeutic Procedure, Each 15 M inutes Completed 07/29/2021 48292 Therapeutic Procedure, Each 15 M inutes Completed 07/26/2021 78196 Therapeutic Procedure, Each 15 M inutes Completed 07/22/2021 12353 Therapeutic Procedure, Each 15 M inutes Completed 07/19/2021 48199 Therapeutic Procedure, Each 15 M inutes Completed 07/15/2021 44013 Therapeutic Procedure, Each 15 M inutes Completed 07/12/2021 82097 Therapeutic Procedure, Each 15 M inutes Completed 07/08/2021 83195 Therapeutic Procedure, Each 15 M inutes Completed 07/05/2021 79031 Therapeutic Procedure, Each 15 M inutes Completed 07/01/2021 07215 Therapeutic Procedure, Each 15 M inutes Completed 06/28/2021 22997 Therapeutic Procedure, Each 15 M inutes Completed 06/24/2021 27156 Therapeutic Procedure, Each 15 M inutes Completed 06/21/2021 36895 Therapeutic Procedure, Each 15 M inutes Completed 06/15/2021 93178 Therapeutic Procedure, Each 15 M inutes Completed 06/13/2021 94702 Therapeutic Procedure, Each 15 M inutes Completed 06/09/2021 70600 Therapeutic Procedure, Each 15 M inutes Completed 06/06/2021 55956 Therapeutic Procedure, Each 15 M inutes Completed 05/30/2021 21602 Physical Therapy Eval - Low Comp lexity Completed 05/18/2021 10676 Office/Outpatient Established Mo d MDM 30-39 Min Completed 05/18/2021 85696 X-Ray Knee Ap & Lateral W/Obliqu es Three Views Completed 05/18/2021 48638 X-Ray Hip Unilateral With Pelvis 2-3 Views [...] Pain in left hip Danamarie Ortol ano, ROTO ROOTER OPERATOR 08/02/2021 M25.552 Pain in left hip Danamarie Ortol ano, ROTO ROOTER OPERATOR 07/29/2021 M25.552 Pain in left hip Brianne M. Vesp a, MSPT 07/26/2021 M25.552 Pain in left hip Katelyn Scee P. T.A. 07/22/2021 M25.552 Pain in left hip Danamarie Ortol ano, ROTO ROOTER OPERATOR 07/19/2021 M25.552 Pain in left hip Angela Shira Kra demetrius, ROTO ROOTER OPERATOR 07/15/2021 M25.552 Pain in left hip Katelyn Scee P. T.A. 07/12/2021 M25.552 Pain in left hip Danamarie Ortol ano, ROTO ROOTER OPERATOR 07/08/2021 M25.552 Pain in left hip Danamarie Ortol ano, ROTO ROOTER OPERATOR 07/05/2021 M25.552 Pain in left hip Brianne M. Vesp a, MSPT 07/01/2021 M25.552 Pain in left hip Danamarie Ortol ano, ROTO ROOTER OPERATOR 06/28/2021 M25.552 Pain in left hip Danamarie Ortol ano, ROTO ROOTER OPERATOR 06/24/2021 M25.552 Pain in left hip Brianne M. Vesp a, MSPT 06/21/2021 M25.552 Pain in left hip Katelyn Scee P. T.A. 06/15/2021 M25.552 Pain in left hip Katelyn Scee P. T.A. 06/13/2021 M25.552 Pain in left hip Katelyn Scee P. T.A. 06/09/2021 M25.552 Pain in left hip Danamarie Ortol ano, ROTO ROOTER OPERATOR 06/06/2021 M25.552 Pain in left hip Katelyn Sceaddy P. T.A. 05/30/2021 M25.552 Pain in left hip [facility] 05/18/2021 M25.552 Pain in left hip Clarice [...] Katelyn Green P.T.A. at Physical Therapy * 08/24/2021 2:00 pm - Clarice Gallowya MD at [place] Functional Status Description No Information Available Mental Status Description No Information Available Referrals Refer to Dr Reason for Referral Status Appt Date Radha Galloway MD Physical Therapy Left Hip, n o auth req based on medical necessity, patient is going to [facility] passed to PT dept sw. Created [address] [place] [address] [phone] Radha Galloway MD Physical Therapy Left Hip no auth req per automated line, patient going to [facility] passed to PT dept sw. Created [address] [place] [address] [phone]
--- OUTSIDE RECORDS SUMMARY | 2021-09-04 11:38 | CCD | Continuity of Care Document ---
Author Author Malissa MADDEN [facility] Organization Unknown Address [address] [address] Phone [phone] Care Team Providers Care Salesperson [employer] Name Role Phone Goyo Reeder ASSISTANT SALES MANAGER AUTM [phone] ErnstTelma claudio ASSISTANT SALES MANAGER AUTM [phone] Problems Description No Active Problems Social History [...] 1 by mouth every day Unknown Nystatin 549746Xhys/GM Powder apply to rash 2-3 times daily [...] Information Available Procedures Date Code Description Status 07/19/2021 53155 Therapeutic Procedure, Each 15 M inutes Completed 07/15/2021 66543 Therapeutic Procedure, Each 15 M inutes Completed 07/12/2021 80080 Therapeutic Procedure, Each 15 M inutes Completed 07/08/2021 23993 Therapeutic Procedure, Each 15 M inutes Completed 07/05/2021 65072 Therapeutic Procedure, Each 15 M inutes Completed 07/01/2021 83069 Therapeutic Procedure, Each 15 M inutes Completed 06/28/2021 12983 Therapeutic Procedure, Each 15 M inutes Completed 06/24/2021 54113 Therapeutic Procedure, Each 15 M inutes Completed 06/21/2021 42093 Therapeutic Procedure, Each 15 M inutes Completed 06/15/2021 55324 Therapeutic Procedure, Each 15 M inutes Completed 06/13/2021 60414 Therapeutic Procedure, Each 15 M inutes Completed 06/09/2021 91711 Therapeutic Procedure, Each 15 M inutes Completed 06/06/2021 35617 Therapeutic Procedure, Each 15 M inutes Completed 05/30/2021 50126 Physical Therapy Eval - Low Comp lexity Completed 05/18/2021 36644 Office/Outpatient Established Mo d MDM 30-39 Min Completed 05/18/2021 37535 X-Ray Knee Ap & Lateral W/Obliqu es Three Views Completed 05/18/2021 41815 X-Ray Hip Unilateral With Pelvis 2-3 Views Completed Medical Devices Description No Information Available Encounters Type Date Location Provider Dx Diagnosis Office Visit 05/18/2021 10:30a Rebecca Galloway MD M2 5.552 Pain in left hip M77.01 Medial epicondylitis, right elbow Z96.651 Presence of right artificial knee joint Z87.81 Personal history of (healed) traumatic fracture Assessments Date Code Description Provider 07/19/2021 M25.552 Pain in left hip Angela romo, SHOTGUN SHELL REPRINTING UNIT OPERATOR 07/15/2021 M25.552 Pain in left hip Katelyn Green P. T.A. 07/12/2021 M25.552 Pain in left hip Danamarie Orvarun ano, SHOTGUN SHELL REPRINTING UNIT OPERATOR 07/08/2021 M25.552 Pain in left hip Danamarie Ortol ano, SHOTGUN SHELL REPRINTING UNIT OPERATOR 07/05/2021 M25.552 Pain in left hip Brianne Roderick. Amandap a, MSPT 07/01/2021 M25.552 Pain in left hip Danamarie Ortol ano, SHOTGUN SHELL REPRINTING UNIT OPERATOR 06/28/2021 M25.552 Pain in left hip Danamarie Ortol ano, SHOTGUN SHELL REPRINTING UNIT OPERATOR 06/24/2021 M25.552 Pain in left hip Brianne Vaughn. Vesp a, MSPT 06/21/2021 M25.552 Pain in left hip Katelyn Scee P. T.A. 06/15/2021 M25.552 Pain in left hip Katelyn Scee P. T.A. 06/13/2021 M25.552 Pain in left hip Katelyn Scee P. T.A. 06/09/2021 M25.552 Pain in left hip Danamarie Ortol ano, SHOTGUN SHELL REPRINTING UNIT OPERATOR 06/06/2021 M25.552 Pain in left hip [...] Galloway MD Plan of Treatment Future Appointment(s):* 08/24/2021 2:00 pm - Clarice Galloway MD at [place] * 07/29/2021 10:30 am - ESTRELLITA Shaffer at Physical Therapy * 07/26/2021 10:00 am - Katelyn Scee P.T.A. at Physical Therapy Functional Status Description No Information Available Mental Status Description No Information Available Referrals Refer to Dr Reason for Referral Status Appt Radha Carl MD Physical Therapy Left Hip, n o auth req based on medical necessity, patient is going to [facility] passed to PT dept sw. Created [address] [place] [address], [address] [place] [address] [phone] Radha Galloway MD Physical Therapy Left Hip no auth req per automated line, patient going to [facility] passed to PT dept sw. Created [address] [place] [address], [address] [address] [phone]
--- OUTSIDE RECORDS SUMMARY | 2021-09-04 11:38 | CCD ---
Continuity of Care Document (CCD) Created on: 07/29/2021 Malissa Bustamante External Reference #: [id number] : [id number] Sex: Female Author Author Malissa [facility] Organization Unknown Address [address] [place] [address], [facility] [address] [place] [address] Phone [phone] Care Team Providers Care Local Announcer Name Role Phone Goyo Reeder SUMMER BABYSITTER AUTM [phone] ErnstTelma claudio SUMMER BABYSITTER AUTM [phone] Problems Description No Active Problems Social History [...] 1 by mouth every day Unknown Nystatin 601947Uuph/GM Powder apply to rash 2-3 times daily [...] Available Procedures Date Code Description Status 07/29/2021 18734 Therapeutic Procedure, Each 15 M inutes Completed 07/26/2021 10395 Therapeutic Procedure, Each 15 M inutes Completed 07/22/2021 42982 Therapeutic Procedure, Each 15 M inutes Completed 07/19/2021 19484 Therapeutic Procedure, Each 15 M inutes Completed 07/15/2021 16958 Therapeutic Procedure, Each 15 M inutes Completed 07/12/2021 54739 Therapeutic Procedure, Each 15 M inutes Completed 07/08/2021 43580 Therapeutic Procedure, Each 15 M inutes Completed 07/05/2021 62807 Therapeutic Procedure, Each 15 M inutes Completed 07/01/2021 20315 Therapeutic Procedure, Each 15 M inutes Completed 06/28/2021 67613 Therapeutic Procedure, Each 15 M inutes Completed 06/24/2021 95616 Therapeutic Procedure, Each 15 M inutes Completed 06/21/2021 05106 Therapeutic Procedure, Each 15 M inutes Completed 06/15/2021 75495 Therapeutic Procedure, Each 15 M inutes Completed 06/13/2021 35950 Therapeutic Procedure, Each 15 M inutes Completed 06/09/2021 74108 Therapeutic Procedure, Each 15 M inutes Completed 06/06/2021 60647 Therapeutic Procedure, Each 15 M inutes Completed 05/30/2021 63385 Physical Therapy Eval - Low Comp lexity Completed 05/18/2021 30682 Office/Outpatient Established Mo d MDM 30-39 Min Completed 05/18/2021 59379 X-Ray Knee Ap & Lateral W/Obliqu es Three Views Completed 05/18/2021 10511 X-Ray Hip Unilateral With Pelvis 2-3 Views [...] Provider 07/29/2021 M25.552 Pain in left hip ESTRELLITA Smiley 07/26/2021 M25.552 Pain in left hip Katelyn Scee P. T.A. 07/22/2021 M25.552 Pain in left hip Danamarie Ortol ano, SHAGGER 07/19/2021 M25.552 Pain in left hip Angela Silva Kra demetrius, SHAGGER 07/15/2021 M25.552 Pain in left hip Katelyn Scee P. T.A. 07/12/2021 M25.552 Pain in left hip Danamarie Ortol ano, SHAGGER 07/08/2021 M25.552 Pain in left hip Danamarie Ortol ano, SHAGGER 07/05/2021 M25.552 Pain in left hip Brianne M. Vesp a, MSPT 07/01/2021 M25.552 Pain in left hip Danamarie Ortol ano, SHAGGER 06/28/2021 M25.552 Pain in left hip Danamarie Ortol ano, SHAGGER 06/24/2021 M25.552 Pain in left hip Brianne M. Vesp a, MSPT 06/21/2021 M25.552 Pain in left hip Katelyn Scee P. T.A. 06/15/2021 M25.552 Pain in left hip Katelyn Scee P. T.A. 06/13/2021 M25.552 Pain in left hip Katelyn Scee P. T.A. 06/09/2021 M25.552 Pain in left hip Danamarie Ortol ano, SHAGGER 06/06/2021 M25.552 Pain in left hip Katelyn [...] Therapy * 08/05/2021 11:00 am - Samina Shultz PTA at Physical Therapy * 08/02/2021 11:00 am - Samina Shultz PTA at Physical Therapy * 08/24/2021 2:00 pm - Clarice Galloway MD at [place] Functional Status Description No Information Available Mental Status Description No Information Available Referrals Refer to Dr Reason for Referral Status Appt Date Radha Galloway MD Physical Therapy Left Hip, n o auth req based on medical necessity, patient is going to [facility] passed to PT dept sw. Created [facility] [address] [address] [phone] Radha Galloway MD Physical Therapy Left Hip no auth req per automated line, patient going to [facility] passed to PT dept sw. Created [facility], [address] [address] [phone]
--- OUTSIDE RECORDS SUMMARY | 2021-09-04 11:38 | CCD | Continuity of Care Document ---
Author Author Malissa MADDEN [facility] Organization Unknown Address [address] [address] Phone [phone] Care Team Providers Care Cutting Room Supervisor Name Role Phone Goyo Reeder DIRECTOR OF EMERGENCY NURSING AUTM [phone] ErnstTelma claudio DIRECTOR OF EMERGENCY NURSING AUTM [phone] Problems Description No Active Problems Social History Type Date Description Comments Sex Unknown ETOH Use Denies alcohol use Tobacco Use Start: Unknown Patient has never smoked Smoking Status Reviewed: 08/13/19 Patient has never smoked Allergies, Adverse Reactions, Alerts Description No Known Drug Allergies Medications Active Medications SIG Qnty Indications Ordering Provide r Date Co Q-10 100mg Capsules 1/day Unknown Ibuprofen 800mg Tablets one by mouth three two a day as needed Unknown Escitalopram Oxalate 5mg Tablets 1 by mouth every day Unknown Nystatin 883457Yeyo/GM Powder apply to rash 2-3 times daily [...] Information Available Procedures Date Code Description Status 07/12/2021 95412 Therapeutic Procedure, Each 15 M inutes Completed 07/08/2021 52459 Therapeutic Procedure, Each 15 M inutes Completed 07/05/2021 33624 Therapeutic Procedure, Each 15 M inutes Completed 07/01/2021 88588 Therapeutic Procedure, Each 15 M inutes Completed 06/28/2021 91569 Therapeutic Procedure, Each 15 M inutes Completed 06/24/2021 11289 Therapeutic Procedure, Each 15 M inutes Completed 06/21/2021 88105 Therapeutic Procedure, Each 15 M inutes Completed 06/15/2021 56919 Therapeutic Procedure, Each 15 M inutes Completed 06/13/2021 11273 Therapeutic Procedure, Each 15 M inutes Completed 06/09/2021 32839 Therapeutic Procedure, Each 15 M inutes Completed 06/06/2021 88199 Therapeutic Procedure, Each 15 M inutes Completed 05/30/2021 92690 Physical Therapy Eval - Low Comp lexity Completed 05/18/2021 08417 Office/Outpatient Established Mo d MDM 30-39 Min Completed 05/18/2021 45414 X-Ray Knee Ap & Lateral W/Obliqu es Three Views Completed 05/18/2021 16621 X-Ray Hip Unilateral With Pelvis 2-3 Views Completed Medical Devices Description No Information Available Encounters Type Date Location Provider Dx Diagnosis Office Visit 05/18/2021 10:30a Rebecca Galloway MD M2 5.552 Pain in left hip M77.01 Medial epicondylitis, right elbow Z96.651 Presence of right artificial knee joint Z87.81 Personal history of (healed) traumatic fracture Assessments Date Code Description Provider 07/12/2021 M25.552 Pain in left hip Danamarie Ortol ano, STAFF INTERNIST OFFICE BASED ONLY 07/08/2021 M25.552 Pain in left hip Danamarie Ortol ano, STAFF INTERNIST OFFICE BASED ONLY 07/05/2021 M25.552 Pain in left hip Brianne og, MSPT 07/01/2021 M25.552 Pain in left hip Danamarie Ortol ano, STAFF INTERNIST OFFICE BASED ONLY 06/28/2021 M25.552 Pain in left hip Danamarie Ortol ano, STAFF INTERNIST OFFICE BASED ONLY 06/24/2021 M25.552 Pain in left hip Brianne M. Vesp a, MSPT 06/21/2021 M25.552 Pain in left hip Katelyn Scee P. T.A. 06/15/2021 M25.552 Pain in left hip Katelyn Scee P. T.A. 06/13/2021 M25.552 Pain in left hip Katelyn Scee P. T.A. 06/09/2021 M25.552 Pain in left hip Danamarie Ortol ano, STAFF INTERNIST OFFICE BASED ONLY 06/06/2021 M25.552 Pain in left hip Katelyn Scee P. T.A. 05/30/2021 M25.552 Pain in left hip Brianne M. Vesp a, MSPT 05/18/2021 M25.552 Pain in left hip Clarice segovia MD 05/18/2021 M77.01 Medial epicondylitis, right elbo w DJackeline Galloway MD 05/18/2021 Z96.651 Presence of right artificial kne e joint Clarice Galloway MD 05/18/2021 Z87.81 Personal history of (healed) tra umatic fracture Clarice Galloway MD Plan of Treatment Future Appointment(s):* 07/22/2021 11:00 am - Samina Lewislano, STAFF INTERNIST OFFICE BASED ONLY at Physical Therapy * 07/20/2021 11:00 am - Samina Lewislano, STAFF INTERNIST OFFICE BASED ONLY at Physical Therapy * 07/15/2021 10:30 am - Katelyn Scee P.T.A. at Physical Therapy Functional Status Description No Information Available Mental Status Description No Information Available Referrals Refer to Dr Reason for Referral Status Appt Date Radha Galloway MD Physical Therapy Left Hip, n o auth req based on medical necessity, patient is going to [facility] passed to PT dept sw. Created [address] [place] [address], [address] [place] [address] [phone] Radha Galloway MD Physical Therapy Left Hip no auth req per automated line, patient going to [facility] passed to PT dept sw. Created [address] [facility], [address] [place] [address] [phone]
--- OUTSIDE RECORDS SUMMARY | 2021-09-04 11:38 | CCD | Continuity of Care Document ---
Author Author Malissa MADDEN [facility] Organization Unknown Address [address] [address] Phone [phone] Care Team Providers Care Vacuum Drier Operator Name Role Phone Goyo Reeder REMOTE SENSING TECHNOLOGIST AUTM [phone] ErnstTelma claudio REMOTE SENSING TECHNOLOGIST AUTM [phone] Problems Description No Active Problems Social History [...] 1 by mouth every day Unknown Nystatin 508583Djvb/GM Powder apply to rash 2-3 times daily [...] Information Available Procedures Date Code Description Status 07/05/2021 12580 Therapeutic Procedure, Each 15 M inutes Completed 07/01/2021 82553 Therapeutic Procedure, Each 15 M inutes Completed 06/28/2021 26250 Therapeutic Procedure, Each 15 M inutes Completed 06/24/2021 02214 Therapeutic Procedure, Each 15 M inutes Completed 06/21/2021 40709 Therapeutic Procedure, Each 15 M inutes Completed 06/15/2021 04729 Therapeutic Procedure, Each 15 M inutes Completed 06/13/2021 04794 Therapeutic Procedure, Each 15 M inutes Completed 06/09/2021 38080 Therapeutic Procedure, Each 15 M inutes Completed 06/06/2021 98717 Therapeutic Procedure, Each 15 M inutes Completed 05/30/2021 91100 Physical Therapy Eval - Low Comp lexity Completed 05/18/2021 09976 Office/Outpatient Established Mo d MDM 30-39 Min Completed 05/18/2021 90647 X-Ray Knee Ap & Lateral W/Obliqu es Three Views Completed 05/18/2021 87365 X-Ray Hip Unilateral With Pelvis 2-3 Views Completed Medical Devices Description No Information Available Encounters Type Date Location Provider Dx Diagnosis Office Visit 05/18/2021 10:30a Rebecca Galloway MD M2 5.552 Pain in left hip M77.01 Medial epicondylitis, right elbow Z96.651 Presence of right artificial knee joint Z87.81 Personal history of (healed) traumatic fracture Assessments Date Code Description Provider 07/05/2021 M25.552 Pain in left hip Brianne M. Vesp a, MSPT 07/01/2021 M25.552 Pain in left hip Danamarie Ortol ano, TRANSFORMER MOLDER 06/28/2021 M25.552 Pain in left hip Danamarie Ortol ano, TRANSFORMER MOLDER 06/24/2021 M25.552 Pain in left hip Brianne M. Vesp a, MSPT 06/21/2021 M25.552 Pain in left hip Katelyn Scee P. T.A. 06/15/2021 M25.552 Pain in left hip Katelyn Scee P. T.A. 06/13/2021 M25.552 Pain in left hip Katelyn Scee P. T.A. 06/09/2021 M25.552 Pain in left hip Danamarie Ortol ano, TRANSFORMER MOLDER 06/06/2021 M25.552 Pain in left hip Katelyn [...] Galloway MD Plan of Treatment Future Appointment(s):* 07/15/2021 10:30 am - Katelyn Scee P.T.A. at Physical Therapy * 07/12/2021 11:30 am - Samina Ortolano, TRANSFORMER MOLDER at Physical Therapy * 07/08/2021 11:00 am - Gabee Joshualano, TRANSFORMER MOLDER at Physical Therapy Functional Status Description No Information Available Mental Status Description No Information Available Referrals Refer to Dr Reason for Referral Status Appt Date Radha Galloway MD Physical Therapy Left Hip, n o auth req based on medical necessity, patient is going to [facility] passed to PT dept sw. Created [address] [place] [address] [phone] Radha Galloway MD Physical Therapy Left Hip no auth req per automated line, patient going to [facility] passed to PT dept sw. Created [address] [place] [phone]
--- OUTSIDE RECORDS SUMMARY | 2021-09-04 11:38 | CCD | Continuity of Care Document ---
Author Author Malissa SOTO [facility] Organization Unknown Address [address] [address] Phone [phone] Care Team Providers Care Room Maid Name Role Phone Goyo Reeder Radha [facility] AUTM [phone] KhadijahTelma METALS ANALYST AUTM [phone] Problems Description No Active Problems Social History [...] 1 by mouth every day Unknown Nystatin 961066Tizs/GM Powder apply to rash 2-3 times daily [...] Information Available Procedures Date Code Description Status 07/22/2021 89653 Therapeutic Procedure, Each 15 M inutes Completed 07/19/2021 53846 Therapeutic Procedure, Each 15 M inutes Completed 07/15/2021 38650 Therapeutic Procedure, Each 15 M inutes Completed 07/12/2021 27801 Therapeutic Procedure, Each 15 M inutes Completed 07/08/2021 28937 Therapeutic Procedure, Each 15 M inutes Completed 07/05/2021 52104 Therapeutic Procedure, Each 15 M inutes Completed 07/01/2021 21347 Therapeutic Procedure, Each 15 M inutes Completed 06/28/2021 07815 Therapeutic Procedure, Each 15 M inutes Completed 06/24/2021 67954 Therapeutic Procedure, Each 15 M inutes Completed 06/21/2021 65664 Therapeutic Procedure, Each 15 M inutes Completed 06/15/2021 56964 Therapeutic Procedure, Each 15 M inutes Completed 06/13/2021 82063 Therapeutic Procedure, Each 15 M inutes Completed 06/09/2021 98916 Therapeutic Procedure, Each 15 M inutes Completed 06/06/2021 94106 Therapeutic Procedure, Each 15 M inutes Completed 05/30/2021 93903 Physical Therapy Eval - Low Comp lexity Completed 05/18/2021 28376 Office/Outpatient Established Mo d MDM 30-39 Min Completed 05/18/2021 77230 X-Ray Knee Ap & Lateral W/Obliqu es Three Views Completed 05/18/2021 37232 X-Ray Hip Unilateral With Pelvis 2-3 Views Completed Medical Devices Description No Information Available Encounters Type Date Location Provider Dx Diagnosis Office Visit 05/18/2021 10:30a Rebecca Galloway MD M2 5.552 Pain in left hip M77.01 Medial epicondylitis, right elbow Z96.651 Presence of right artificial knee joint Z87.81 Personal history of (healed) traumatic fracture Assessments Date Code Description Provider 07/22/2021 M25.552 Pain in left hip Samina Mo ano, RECRUITER 07/19/2021 M25.552 Pain in left hip Angela romo, RECRUITER 07/15/2021 M25.552 Pain in left hip Katelyn Green P. T.A. 07/12/2021 M25.552 Pain in left hip Danamarie Ortol ano, RECRUITER 07/08/2021 M25.552 Pain in left hip Danamarie Ortol ano, RECRUITER 07/05/2021 M25.552 Pain in left hip Brianne M. Vesp a, MSPT 07/01/2021 M25.552 Pain in left hip Danamarie Ortol ano, RECRUITER 06/28/2021 M25.552 Pain in left hip Danamarie Ortol ano, RECRUITER 06/24/2021 M25.552 Pain in left hip Brianne M. Vesp a, MSPT 06/21/2021 M25.552 Pain in left hip Katelyn Scee P. T.A. 06/15/2021 M25.552 Pain in left hip Katelyn Scee P. T.A. 06/13/2021 M25.552 Pain in left hip Katelyn Scee P. T.A. 06/09/2021 M25.552 Pain in left hip Danamarie Ortol ano, RECRUITER 06/06/2021 M25.552 Pain in left hip Katelyn Scee P. T.A. 05/30/2021 M25.552 Pain in left hip Brianne M. Vesp a, MSPT 05/18/2021 M25.552 Pain in left hip Clarice segovia MD 05/18/2021 M77.01 Medial epicondylitis, right elbo w D. Andres Galloway MD 05/18/2021 Z96.651 Presence of right artificial kne e joint Clarice Galloway MD 05/18/2021 Z87.81 Personal history of (healed) tra umatic fracture Clarice Galloway MD Plan of Treatment Future Appointment(s):* 08/24/2021 2:00 pm - Clarice Galloway MD at [place] * 07/29/2021 10:30 am - ESTRELLITA Shaffer at Physical Therapy * 07/26/2021 10:00 am - Katelyn Scee P.T.A. at Physical Therapy Functional Status Description No Information Available Mental Status Description No Information Available Referrals Refer to Reason for Referral Status Appt Date Radha Galloway MD Physical Therapy Left Hip, n o auth req based on medical necessity, patient is going to [facility] passed to PT dept sw. Created [address] [place] [phone] Radha Galloway MD Physical Therapy Left Hip no auth req per automated line, patient going to [facility] passed to PT dept sw. Created [address] [place] [phone]
--- OUTSIDE RECORDS SUMMARY | 2021-09-04 11:38 | CCD | Continuity of Care Document ---
Author Author Malissa MADDEN [facility] Organization Unknown Address [address] [address] Phone [phone] Care Team Providers Care Lav Crewman Name Role Phone Goyo Reeder LAW CLERK AUTM [phone] ErnstTelma claudio LAW CLERK AUTM [phone] Problems Description No Active Problems Social History [...] 1 by mouth every day Unknown Nystatin 854447Admv/GM Powder apply to rash 2-3 times daily [...] Available Procedures Date Code Description Status 07/12/2021 51014 Therapeutic Procedure, Each 15 M inutes Completed 07/08/2021 66031 Therapeutic Procedure, Each 15 M inutes Completed 07/05/2021 88036 Therapeutic Procedure, Each 15 M inutes Completed 07/01/2021 38257 Therapeutic Procedure, Each 15 M inutes Completed 06/28/2021 99558 Therapeutic Procedure, Each 15 M inutes Completed 06/24/2021 62302 Therapeutic Procedure, Each 15 M inutes Completed 06/21/2021 63300 Therapeutic Procedure, Each 15 M inutes Completed 06/15/2021 36719 Therapeutic Procedure, Each 15 M inutes Completed 06/13/2021 16305 Therapeutic Procedure, Each 15 M inutes Completed 06/09/2021 12595 Therapeutic Procedure, Each 15 M inutes Completed 06/06/2021 48587 Therapeutic Procedure, Each 15 M inutes Completed 05/30/2021 12124 Physical Therapy Eval - Low Comp lexity Completed 05/18/2021 23157 Office/Outpatient Established Mo d MDM 30-39 Min Completed 05/18/2021 06168 X-Ray Knee Ap & Lateral W/Obliqu es Three Views Completed 05/18/2021 09914 X-Ray Hip Unilateral With Pelvis 2-3 Views [...] Pain in left hip Danamarie Ortol ano, BLOOD DONOR UNIT ASSISTANT 07/08/2021 M25.552 Pain in left hip Danamarie Ortol ano, BLOOD DONOR UNIT ASSISTANT 07/05/2021 M25.552 Pain in left hip Brianne og, MSPT 07/01/2021 M25.552 Pain in left hip Danamarie Ortol ano, BLOOD DONOR UNIT ASSISTANT 06/28/2021 M25.552 Pain in left hip Danamarie Ortol ano, BLOOD DONOR UNIT ASSISTANT 06/24/2021 M25.552 Pain in left hip Brianne M. Vesp a, MSPT 06/21/2021 M25.552 Pain in left hip Katelyn Scee P. T.A. 06/15/2021 M25.552 Pain in left hip Katelyn Scee P. T.A. 06/13/2021 M25.552 Pain in left hip Katelyn Scee P. T.A. 06/09/2021 M25.552 Pain in left hip Danamarie Ortol ano, BLOOD DONOR UNIT ASSISTANT 06/06/2021 M25.552 Pain in left hip Katelyn [...] Appointment(s):* 07/22/2021 11:00 am - Samina Lewislano, BLOOD DONOR UNIT ASSISTANT at Physical Therapy * 07/20/2021 11:00 am - Samina Lewislano, BLOOD DONOR UNIT ASSISTANT at Physical Therapy * 07/15/2021 10:30 am - Katelyn Scee P.T.A. at Physical Therapy Functional Status Description No Information Available Mental Status Description No Information Available Referrals Refer to Dr Reason for Referral Status Appt Date Radha Galloway MD Physical Therapy Left Hip, n o auth req based on medical necessity, patient is going to [facility] passed to PT dept sw. Created [address] [place] [address], [address] [place] [phone] Radha Galloway MD Physical Therapy Left Hip no auth req per automated line, patient going to [facility] passed to PT dept sw. Created [address] [facility], [address] [place] [address] [phone]
--- OUTSIDE RECORDS SUMMARY | 2021-09-04 11:38 | CCD | Continuity of Care Document ---
Author Author Malissa GREEN Organization Unknown Address [address] [place] [address] Phone [phone] Care Team Providers Care Nightman Name Role Phone Goyo Reeder [facility] AUTM [phone] KhadijahMalenay WELFARE PROJECT MANAGER AUTM [phone] Problems Description No Active Problems Social History [...] 1 by mouth every day Unknown Nystatin 595785Jqfn/GM Powder apply to rash 2-3 times daily [...] Available Procedures Date Code Description Status 07/29/2021 52708 Therapeutic Procedure, Each 15 M inutes Completed 07/26/2021 25432 Therapeutic Procedure, Each 15 M inutes Completed 07/22/2021 03309 Therapeutic Procedure, Each 15 M inutes Completed 07/19/2021 91816 Therapeutic Procedure, Each 15 M inutes Completed 07/15/2021 47523 Therapeutic Procedure, Each 15 M inutes Completed 07/12/2021 27717 Therapeutic Procedure, Each 15 M inutes Completed 07/08/2021 62479 Therapeutic Procedure, Each 15 M inutes Completed 07/05/2021 52954 Therapeutic Procedure, Each 15 M inutes Completed 07/01/2021 59822 Therapeutic Procedure, Each 15 M inutes Completed 06/28/2021 60580 Therapeutic Procedure, Each 15 M inutes Completed 06/24/2021 02483 Therapeutic Procedure, Each 15 M inutes Completed 06/21/2021 03856 Therapeutic Procedure, Each 15 M inutes Completed 06/15/2021 11920 Therapeutic Procedure, Each 15 M inutes Completed 06/13/2021 36024 Therapeutic Procedure, Each 15 M inutes Completed 06/09/2021 66536 Therapeutic Procedure, Each 15 M inutes Completed 06/06/2021 08850 Therapeutic Procedure, Each 15 M inutes Completed 05/30/2021 37347 Physical Therapy Eval - Low Comp lexity Completed 05/18/2021 78618 Office/Outpatient Established Mo d MDM 30-39 Min Completed 05/18/2021 78874 X-Ray Knee Ap & Lateral W/Obliqu es Three Views Completed 05/18/2021 80134 X-Ray Hip Unilateral With Pelvis 2-3 Views [...] Pain in left hip Danamarie Ortol ano, ADVANCED PRACTICE RN 07/19/2021 M25.552 Pain in left hip Angela Silva Kra demetrius, ADVANCED PRACTICE RN 07/15/2021 M25.552 Pain in left hip Katelyn Scee P. T.A. 07/12/2021 M25.552 Pain in left hip Danamarie Ortol ano, ADVANCED PRACTICE RN 07/08/2021 M25.552 Pain in left hip Danamarie Ortol ano, ADVANCED PRACTICE RN 07/05/2021 M25.552 Pain in left hip Brianne M. Vesp a, MSPT 07/01/2021 M25.552 Pain in left hip Danamarie Ortol ano, ADVANCED PRACTICE RN 06/28/2021 M25.552 Pain in left hip Danamarie Ortol ano, ADVANCED PRACTICE RN 06/24/2021 M25.552 Pain in left hip Brianne M. Vesp a, MSPT 06/21/2021 M25.552 Pain in left hip Katelyn Scee P. T.A. 06/15/2021 M25.552 Pain in left hip Katelyn Scee P. T.A. 06/13/2021 M25.552 Pain in left hip Katelyn Scee P. T.A. 06/09/2021 M25.552 Pain in left hip Danamarie Ortol ano, ADVANCED PRACTICE RN 06/06/2021 M25.552 Pain in left hip Katelyn Scee P. T.A. 05/30/2021 M25.552 Pain in left hip Brianne M. Vesp a, MSPT 05/18/2021 M25.552 Pain in left hip Clarice segovia MD 05/18/2021 M77.01 Medial epicondylitis, right elbo w Clarice Galloway MD 05/18/2021 Z96.651 Presence of right artificial kne e joint Clarice Galloway MD 05/18/2021 Z87.81 Personal history of (healed) tra umatic fracture Clarice Gallowya MD Plan of Treatment Future Appointment(s):* 08/12/2021 11:00 am - Katelyn Green P.T.A. at Physical Therapy * 08/08/2021 11:00 am - ESTRELLITA Shaffer at Physical Therapy * 08/05/2021 11:00 am - Samina Shultz PTA at Physical Therapy * 08/02/2021 11:00 am - Samina Shultz PTA at Physical Therapy * 08/24/2021 2:00 pm - Clarice Galloway MD at [place] Functional Status Description No Information Available Mental Status Description No Information Available Referrals Refer to Dr Reason for Referral Status Appt Date Radha Galloway MD Physical Therapy Left Hip, n o auth req based on medical necessity, patient is going to [facility] passed to PT dept sw. Created [address] [place] [phone] Radha Galloway MD Physical Therapy Left Hip no auth req per automated line, patient going to [facility] passed to PT dept sw. Created [address] [place] [phone]
--- OUTSIDE RECORDS SUMMARY | 2021-09-04 11:38 | CCD | Continuity of Care Document ---
Author Author Malissa MADDEN [facility] Organization Unknown Address [address] [place] [address] Phone [phone] Care Team Providers Care Music Engineer Name Role Phone Goyo Reeder HEAD PIECE ASSEMBLER AUTM [phone] KhadijahTelma HEAD PIECE ASSEMBLER AUTM [phone] Problems Description No Active Problems Social History [...] 1 by mouth every day Unknown Nystatin 263518Slhz/GM Powder apply to rash 2-3 times daily [...] Available Procedures Date Code Description Status 08/16/2021 92315 Therapeutic Procedure, Each 15 M inutes Completed 08/08/2021 95483 Therapeutic Procedure, Each 15 M inutes Completed 08/05/2021 57787 Therapeutic Procedure, Each 15 M inutes Completed 08/02/2021 01627 Therapeutic Procedure, Each 15 M inutes Completed 07/29/2021 75163 Therapeutic Procedure, Each 15 M inutes Completed 07/26/2021 53322 Therapeutic Procedure, Each 15 M inutes Completed 07/22/2021 06590 Therapeutic Procedure, Each 15 M inutes Completed 07/19/2021 81867 Therapeutic Procedure, Each 15 M inutes Completed 07/15/2021 72838 Therapeutic Procedure, Each 15 M inutes Completed 07/12/2021 40817 Therapeutic Procedure, Each 15 M inutes Completed 07/08/2021 53551 Therapeutic Procedure, Each 15 M inutes Completed 07/05/2021 58762 Therapeutic Procedure, Each 15 M inutes Completed 07/01/2021 32511 Therapeutic Procedure, Each 15 M inutes Completed 06/28/2021 26090 Therapeutic Procedure, Each 15 M inutes Completed 06/24/2021 64549 Therapeutic Procedure, Each 15 M inutes Completed 06/21/2021 59199 Therapeutic Procedure, Each 15 M inutes Completed 06/15/2021 66343 Therapeutic Procedure, Each 15 M inutes Completed 06/13/2021 26397 Therapeutic Procedure, Each 15 M inutes Completed 06/09/2021 94315 Therapeutic Procedure, Each 15 M inutes Completed 06/06/2021 74938 Therapeutic Procedure, Each 15 M inutes Completed 05/30/2021 98119 Physical Therapy Eval - Low Comp lexity Completed 05/18/2021 36760 Office/Outpatient Established Mo d MDM 30-39 Min Completed 05/18/2021 65803 X-Ray Knee Ap & Lateral W/Obliqu es Three Views Completed 05/18/2021 77291 X-Ray Hip Unilateral With Pelvis 2-3 Views [...] Pain in left hip Danamarie Ortol ano, GENERAL LABOR FORKLIFT OPERATOR 08/02/2021 M25.552 Pain in left hip Danamarie Ortol ano, GENERAL LABOR FORKLIFT OPERATOR 07/29/2021 M25.552 Pain in left hip Brianne M. Vesp a, MSPT 07/26/2021 M25.552 Pain in left hip Katelyn Scee P. T.A. 07/22/2021 M25.552 Pain in left hip Danamarie Ortol ano, GENERAL LABOR FORKLIFT OPERATOR 07/19/2021 M25.552 Pain in left hip Angela Shira Kra demetrius, GENERAL LABOR FORKLIFT OPERATOR 07/15/2021 M25.552 Pain in left hip Katelyn Scee P. T.A. 07/12/2021 M25.552 Pain in left hip Danamarie Ortol ano, GENERAL LABOR FORKLIFT OPERATOR 07/08/2021 M25.552 Pain in left hip Danamarie Ortol ano, GENERAL LABOR FORKLIFT OPERATOR 07/05/2021 M25.552 Pain in left hip Brianne M. Vesp a, MSPT 07/01/2021 M25.552 Pain in left hip Danamarie Ortol ano, GENERAL LABOR FORKLIFT OPERATOR 06/28/2021 M25.552 Pain in left hip Danamarie Ortol ano, GENERAL LABOR FORKLIFT OPERATOR 06/24/2021 M25.552 Pain in left hip Brianne M. Vesp a, MSPT 06/21/2021 M25.552 Pain in left hip Katelyn Scee P. T.A. 06/15/2021 M25.552 Pain in left hip Katelyn Scee P. T.A. 06/13/2021 M25.552 Pain in left hip Katelyn Scee P. T.A. 06/09/2021 M25.552 Pain in left hip Danamarie Ortol ano, GENERAL LABOR FORKLIFT OPERATOR 06/06/2021 M25.552 Pain in left hip Katelyn Sceaddy P. T.A. 05/30/2021 M25.552 Pain in left hip [facility] 05/18/2021 M25.552 Pain in left [...] Therapy * 08/19/2021 11:30 am - Samina Madden PTA at Physical Therapy * 08/24/2021 2:00 pm - Clarice Galloway MD at [place] Functional Status Description No Information Available Mental Status Description No Information Available Referrals Refer to Dr Reason for Referral Status Appt Date Radha Galloway MD Physical Therapy Left Hip, n o auth req based on medical necessity, patient is going to [facility] passed to PT dept sw. Created [address] [place] [phone] Radha Galloway MD Physical Therapy Left Hip no auth req per automated line, patient going to [facility] passed to PT dept sw. Created [address] [place] [phone]
--- OUTSIDE RECORDS SUMMARY | 2021-09-04 11:38 | CCD | Continuity of Care Document ---
Author Author Malissa GREEN Organization Unknown Address [address] [place] [address] Phone [phone] Care Team Providers Care Manager Delivery Name Role Phone Goyo Reeder [facility] AUTM [phone] KhadijahMalenay [facility]CH[facility]ISE [facility] AUTM [phone] Problems Description No Active Problems Social History [...] 1 by mouth every day Unknown Nystatin 069493Eyxj/GM Powder apply to rash 2-3 times daily [...] Available Procedures Date Code Description Status 07/22/2021 65358 Therapeutic Procedure, Each 15 M inutes Completed 07/19/2021 72770 Therapeutic Procedure, Each 15 M inutes Completed 07/15/2021 94914 Therapeutic Procedure, Each 15 M inutes Completed 07/12/2021 15045 Therapeutic Procedure, Each 15 M inutes Completed 07/08/2021 60508 Therapeutic Procedure, Each 15 M inutes Completed 07/05/2021 15424 Therapeutic Procedure, Each 15 M inutes Completed 07/01/2021 31873 Therapeutic Procedure, Each 15 M inutes Completed 06/28/2021 62961 Therapeutic Procedure, Each 15 M inutes Completed 06/24/2021 87581 Therapeutic Procedure, Each 15 M inutes Completed 06/21/2021 64071 Therapeutic Procedure, Each 15 M inutes Completed 06/15/2021 48989 Therapeutic Procedure, Each 15 M inutes Completed 06/13/2021 71311 Therapeutic Procedure, Each 15 M inutes Completed 06/09/2021 74630 Therapeutic Procedure, Each 15 M inutes Completed 06/06/2021 93799 Therapeutic Procedure, Each 15 M inutes Completed 05/30/2021 12494 Physical Therapy Eval - Low Comp lexity Completed 05/18/2021 89125 Office/Outpatient Established Mo d MDM 30-39 Min Completed 05/18/2021 71944 X-Ray Knee Ap & Lateral W/Obliqu es Three Views Completed 05/18/2021 87690 X-Ray Hip Unilateral With Pelvis 2-3 Views [...] Pain in left hip Samina Mo ano, GRANT WRITER 07/19/2021 M25.552 Pain in left hip Angela romo, GRANT WRITER 07/15/2021 M25.552 Pain in left hip Katelyn Green P. T.A. 07/12/2021 M25.552 Pain in left hip Danamarie Ortol ano, GRANT WRITER 07/08/2021 M25.552 Pain in left hip Danamarie Ortol ano, GRANT WRITER 07/05/2021 M25.552 Pain in left hip Brianne M. Vesp a, MSPT 07/01/2021 M25.552 Pain in left hip Danamarie Ortol ano, GRANT WRITER 06/28/2021 M25.552 Pain in left hip Danamarie Ortol ano, GRANT WRITER 06/24/2021 M25.552 Pain in left hip Brianne M. Vesp a, MSPT 06/21/2021 M25.552 Pain in left hip Katelyn Scee P. T.A. 06/15/2021 M25.552 Pain in left hip Katelyn Scee P. T.A. 06/13/2021 M25.552 Pain in left hip Katelyn Scee P. T.A. 06/09/2021 M25.552 Pain in left hip Danamarie Ortol ano, GRANT WRITER 06/06/2021 M25.552 Pain in left hip Katelyn [...] 2:00 pm - Clarice Galloway MD at [place] * 07/29/2021 10:30 am - ESTRELLITA Shaffer [...] [facility] passed to PT dept sw. Created [address] [place] [phone] Radha Galloway MD Physical Therapy Left Hip no auth req per automated line, patient going to [facility] passed to PT dept sw. Created [address] [place] [phone]
--- OUTSIDE RECORDS SUMMARY | 2021-09-04 11:38 | CCD | Continuity of Care Document ---
Author Author Malissa MADDEN [facility] Organization Unknown Address [address] [address] Phone [phone] Care Team Providers Care Supervisor Pipeline Maintenance Name Role Phone Goyo Reeder SEAMING INSPECTOR AUTM [phone] ErnstTelma claudio SEAMING INSPECTOR AUTM [phone] Problems Description No Active Problems Social History [...] 1 by mouth every day Unknown Nystatin 826805Qmuc/GM Powder apply to rash 2-3 times daily [...] Information Available Procedures Date Code Description Status 08/05/2021 28674 Therapeutic Procedure, Each 15 M inutes Completed 08/02/2021 33616 Therapeutic Procedure, Each 15 M inutes Completed 07/29/2021 17934 Therapeutic Procedure, Each 15 M inutes Completed 07/26/2021 77181 Therapeutic Procedure, Each 15 M inutes Completed 07/22/2021 50598 Therapeutic Procedure, Each 15 M inutes Completed 07/19/2021 74763 Therapeutic Procedure, Each 15 M inutes Completed 07/15/2021 84724 Therapeutic Procedure, Each 15 M inutes Completed 07/12/2021 25921 Therapeutic Procedure, Each 15 M inutes Completed 07/08/2021 88003 Therapeutic Procedure, Each 15 M inutes Completed 07/05/2021 41148 Therapeutic Procedure, Each 15 M inutes Completed 07/01/2021 07531 Therapeutic Procedure, Each 15 M inutes Completed 06/28/2021 84013 Therapeutic Procedure, Each 15 M inutes Completed 06/24/2021 39305 Therapeutic Procedure, Each 15 M inutes Completed 06/21/2021 54241 Therapeutic Procedure, Each 15 M inutes Completed 06/15/2021 29695 Therapeutic Procedure, Each 15 M inutes Completed 06/13/2021 20239 Therapeutic Procedure, Each 15 M inutes Completed 06/09/2021 20885 Therapeutic Procedure, Each 15 M inutes Completed 06/06/2021 38591 Therapeutic Procedure, Each 15 M inutes Completed 05/30/2021 68165 Physical Therapy Eval - Low Comp lexity Completed 05/18/2021 38996 Office/Outpatient Established Mo d MDM 30-39 Min Completed 05/18/2021 77449 X-Ray Knee Ap & Lateral W/Obliqu es Three Views Completed 05/18/2021 69911 X-Ray Hip Unilateral With Pelvis 2-3 Views Completed Medical Devices Description No Information Available Encounters Type Date Location Provider Dx Diagnosis Office Visit 05/18/2021 10:30a Rebecca Galloway MD M2 5.552 Pain in left hip M77.01 Medial epicondylitis, right elbow Z96.651 Presence of right artificial knee joint Z87.81 Personal history of (healed) traumatic fracture Assessments Date Code Description Provider 08/05/2021 M25.552 Pain in left hip Danamarie Ortol ano, WIRE TECHNICIAN 08/02/2021 M25.552 Pain in left hip Danamarie Ortol ano, WIRE TECHNICIAN 07/29/2021 M25.552 Pain in left hip Brianne M. Vesp a, MSPT 07/26/2021 M25.552 Pain in left hip Katelyn Scee P. T.A. 07/22/2021 M25.552 Pain in left hip Danamarie Ortol ano, WIRE TECHNICIAN 07/19/2021 M25.552 Pain in left hip Angela Shira Kra demetrius, WIRE TECHNICIAN 07/15/2021 M25.552 Pain in left hip Katelyn Scee P. T.A. 07/12/2021 M25.552 Pain in left hip Danamarie Ortol ano, WIRE TECHNICIAN 07/08/2021 M25.552 Pain in left hip Danamarie Ortol ano, WIRE TECHNICIAN 07/05/2021 M25.552 Pain in left hip Brianne M. Vesp a, MSPT 07/01/2021 M25.552 Pain in left hip Danamarie Ortol ano, WIRE TECHNICIAN 06/28/2021 M25.552 Pain in left hip Danamarie Ortol ano, WIRE TECHNICIAN 06/24/2021 M25.552 Pain in left hip Brianne M. Vesp a, MSPT 06/21/2021 M25.552 Pain in left hip Katelyn Scee P. T.A. 06/15/2021 M25.552 Pain in left hip Katelyn Scee P. T.A. 06/13/2021 M25.552 Pain in left hip Katelyn Scee P. T.A. 06/09/2021 M25.552 Pain in left hip Danamarie Ortol ano, WIRE TECHNICIAN 06/06/2021 M25.552 Pain in left hip Katelyn [...] Galloway MD Plan of Treatment Future Appointment(s):* 08/19/2021 11:30 am - Samina Madden WIRE TECHNICIAN at Physical Therapy * 08/16/2021 11:00 am - Samina Madden PTA at Physical Therapy * 08/12/2021 11:00 am - Angela Hart WIRE TECHNICIAN at Physical Therapy * 08/08/2021 11:00 am - Brianne Arana MSPT at Physical Therapy * 08/24/2021 2:00 pm - Clarice Galloway MD at [place] Functional Status Description No Information Available Mental Status Description No Information Available Referrals Refer to Dr Reason for Referral Status Appt Date Radha Galloway MD Physical Therapy Left Hip, n o auth req based on medical necessity, patient is going to [facility] passed to PT dept sw. Created [address] [place] [phone] Radha Galloway MD Physical Therapy Left Hip no auth req per automated line, patient going to [facility] passed to PT dept sw. Created [address] [place] [phone]
--- OUTSIDE RECORDS SUMMARY | 2021-09-04 11:38 | CCD | Continuity of Care Document ---
Author Author Malissa MADDEN [facility] Organization Unknown Address [address] [address] Phone [phone] Care Team Providers Care Supervisor [employer] Name Role Phone Goyo Reeder TRAINING PROJECT MANAGER AUTM [phone] ErnstTelma claudio TRAINING PROJECT MANAGER AUTM [phone] Problems Description No Active Problems Social History [...] 1 by mouth every day Unknown Nystatin 155832Sksk/GM Powder apply to rash 2-3 times daily [...] Available Procedures Date Code Description Status 07/05/2021 16918 Therapeutic Procedure, Each 15 M inutes Completed 07/01/2021 53594 Therapeutic Procedure, Each 15 M inutes Completed 06/28/2021 82748 Therapeutic Procedure, Each 15 M inutes Completed 06/24/2021 33770 Therapeutic Procedure, Each 15 M inutes Completed 06/21/2021 36735 Therapeutic Procedure, Each 15 M inutes Completed 06/15/2021 08589 Therapeutic Procedure, Each 15 M inutes Completed 06/13/2021 63790 Therapeutic Procedure, Each 15 M inutes Completed 06/09/2021 01620 Therapeutic Procedure, Each 15 M inutes Completed 06/06/2021 04981 Therapeutic Procedure, Each 15 M inutes Completed 05/30/2021 18117 Physical Therapy Eval - Low Comp lexity Completed 05/18/2021 18092 Office/Outpatient Established Mo d MDM 30-39 Min Completed 05/18/2021 05954 X-Ray Knee Ap & Lateral W/Obliqu es Three Views Completed 05/18/2021 67647 X-Ray Hip Unilateral With Pelvis 2-3 Views [...] Pain in left hip Danamarie Ortol ano, MACHINE JOINT CUTTER 06/28/2021 M25.552 Pain in left hip Danamarie Ortol ano, MACHINE JOINT CUTTER 06/24/2021 M25.552 Pain in left hip Brianne M. Vesp a, MSPT 06/21/2021 M25.552 Pain in left hip Katelyn Scee P. T.A. 06/15/2021 M25.552 Pain in left hip Katelyn Scee P. T.A. 06/13/2021 M25.552 Pain in left hip Katelyn Scee P. T.A. 06/09/2021 M25.552 Pain in left hip Samina Phantol ano, MACHINE JOINT CUTTER 06/06/2021 M25.552 Pain in left hip [...] Therapy * 07/12/2021 11:30 am - Samina Madden, MACHINE JOINT CUTTER at Physical Therapy Functional Status Description No Information Available Mental Status Description No Information Available Referrals Refer to Dr Reason for Referral Status Appt Date Radha Galloway MD Physical Therapy Left Hip, n o auth req based on medical necessity, patient is going to [facility] passed to PT dept sw. Created [address] [place] [phone] Radha Galloway MD Physical Therapy Left Hip no auth req per automated line, patient going to [facility] passed to PT dept sw. Created [address] [place] [phone]
--- OUTSIDE RECORDS SUMMARY | 2021-09-04 11:38 | CCD | Continuity of Care Document ---
Author Author Malissa GREEN Organization Unknown Address [address] [place] [address] Phone [phone] Care Team Providers Care Call Worker Name Role Phone Goyo Reeder Radha MEDICAL BILLING SUPERVISOR AUTM [phone] Dione Luciomary MEDICAL BILLING SUPERVISOR AUTM [phone] Problems Description No Active Problems Social History [...] 1 by mouth every day Unknown Nystatin 376940Czvh/GM Powder apply to rash 2-3 times daily [...] Available Procedures Date Code Description Status 08/16/2021 66205 Therapeutic Procedure, Each 15 M inutes Completed 08/08/2021 71065 Therapeutic Procedure, Each 15 M inutes Completed 08/05/2021 28233 Therapeutic Procedure, Each 15 M inutes Completed 08/02/2021 44648 Therapeutic Procedure, Each 15 M inutes Completed 07/29/2021 64778 Therapeutic Procedure, Each 15 M inutes Completed 07/26/2021 88768 Therapeutic Procedure, Each 15 M inutes Completed 07/22/2021 69985 Therapeutic Procedure, Each 15 M inutes Completed 07/19/2021 72626 Therapeutic Procedure, Each 15 M inutes Completed 07/15/2021 18972 Therapeutic Procedure, Each 15 M inutes Completed 07/12/2021 07439 Therapeutic Procedure, Each 15 M inutes Completed 07/08/2021 43252 Therapeutic Procedure, Each 15 M inutes Completed 07/05/2021 34642 Therapeutic Procedure, Each 15 M inutes Completed 07/01/2021 48767 Therapeutic Procedure, Each 15 M inutes Completed 06/28/2021 04132 Therapeutic Procedure, Each 15 M inutes Completed 06/24/2021 17636 Therapeutic Procedure, Each 15 M inutes Completed 06/21/2021 49795 Therapeutic Procedure, Each 15 M inutes Completed 06/15/2021 27907 Therapeutic Procedure, Each 15 M inutes Completed 06/13/2021 35801 Therapeutic Procedure, Each 15 M inutes Completed 06/09/2021 93554 Therapeutic Procedure, Each 15 M inutes Completed 06/06/2021 51053 Therapeutic Procedure, Each 15 M inutes Completed 05/30/2021 46722 Physical Therapy Eval - Low Comp lexity Completed 05/18/2021 85570 Office/Outpatient Established Mo d MDM 30-39 Min Completed 05/18/2021 54986 X-Ray Knee Ap & Lateral W/Obliqu es Three Views Completed 05/18/2021 70485 X-Ray Hip Unilateral With Pelvis 2-3 Views [...] Pain in left hip Danamarie Ortol ano, SUBSTATION MAINTENANCE TECHNICIAN 08/02/2021 M25.552 Pain in left hip Danamarie Ortol ano, SUBSTATION MAINTENANCE TECHNICIAN 07/29/2021 M25.552 Pain in left hip Brianne M. Vesp a, MSPT 07/26/2021 M25.552 Pain in left hip Katelyn Scee P. T.A. 07/22/2021 M25.552 Pain in left hip Danamarie Ortol ano, SUBSTATION MAINTENANCE TECHNICIAN 07/19/2021 M25.552 Pain in left hip Angela Shira Kra demetrius, SUBSTATION MAINTENANCE TECHNICIAN 07/15/2021 M25.552 Pain in left hip Katelyn Scee P. T.A. 07/12/2021 M25.552 Pain in left hip Danamarie Ortol ano, SUBSTATION MAINTENANCE TECHNICIAN 07/08/2021 M25.552 Pain in left hip Danamarie Ortol ano, SUBSTATION MAINTENANCE TECHNICIAN 07/05/2021 M25.552 Pain in left hip Brianne M. Vesp a, MSPT 07/01/2021 M25.552 Pain in left hip Danamarie Ortol ano, SUBSTATION MAINTENANCE TECHNICIAN 06/28/2021 M25.552 Pain in left hip Danamarie Ortol ano, SUBSTATION MAINTENANCE TECHNICIAN 06/24/2021 M25.552 Pain in left hip Brianne M. Vesp a, MSPT 06/21/2021 M25.552 Pain in left hip Aktelyn Scee P. T.A. 06/15/2021 M25.552 Pain in left hip Katelyn Scee P. T.A. 06/13/2021 M25.552 Pain in left hip Katelyn Scee P. T.A. 06/09/2021 M25.552 Pain in left hip Danamarie Ortol ano, SUBSTATION MAINTENANCE TECHNICIAN 06/06/2021 M25.552 Pain in left hip Katelyn Sceaddy P. T.A. 05/30/2021 M25.552 Pain in left hip [facility] 05/18/[facility]21 M25.552 Pain in left hip Clarice [...] 2:00 pm - Clarice Galloway MD at [place] Functional Status Description No Information Available Mental Status Description No Information Available Referrals Refer to Dr Reason for Referral Status Appt Date Radha Galloway MD Physical Therapy Left Hip, n o auth req based on medical necessity, patient is going to [facility] passed to PT dept sw. Created [address] [place] [phone] [phone] Radha Galloway MD Physical Therapy Left Hip no auth req per automated line, patient going to [facility] passed to PT dept sw. Created [address] [place] [phone] [phone]
--- OUTSIDE RECORDS SUMMARY | 2021-09-04 11:38 | CCD | Continuity of Care Document ---
Author Author Malissa SOTO [facility] Organization Unknown Address [address] [address] Phone [phone] Care Team Providers Care Domestic Technician Name Role Phone Goyo Reeder Radha AUTOMOBILE TIRE BUILDER AUTM [phone] KhadijahTelma AUTOMOBILE TIRE BUILDER AUTM [phone] Problems Description No Active Problems Social History [...] 1 by mouth every day Unknown Nystatin 370698Aeih/GM Powder apply to rash 2-3 times daily [...] Information Available Procedures Date Code Description Status 07/15/2021 90371 Therapeutic Procedure, Each 15 M inutes Completed 07/12/2021 45382 Therapeutic Procedure, Each 15 M inutes Completed 07/08/2021 76169 Therapeutic Procedure, Each 15 M inutes Completed 07/05/2021 15930 Therapeutic Procedure, Each 15 M inutes Completed 07/01/2021 51055 Therapeutic Procedure, Each 15 M inutes Completed 06/28/2021 58722 Therapeutic Procedure, Each 15 M inutes Completed 06/24/2021 40577 Therapeutic Procedure, Each 15 M inutes Completed 06/21/2021 08758 Therapeutic Procedure, Each 15 M inutes Completed 06/15/2021 14933 Therapeutic Procedure, Each 15 M inutes Completed 06/13/2021 23626 Therapeutic Procedure, Each 15 M inutes Completed 06/09/2021 16014 Therapeutic Procedure, Each 15 M inutes Completed 06/06/2021 11923 Therapeutic Procedure, Each 15 M inutes Completed 05/30/2021 72283 Physical Therapy Eval - Low Comp lexity Completed 05/18/2021 08119 Office/Outpatient Established Mo d MDM 30-39 Min Completed 05/18/2021 16295 X-Ray Knee Ap & Lateral W/Obliqu es Three Views Completed 05/18/2021 70885 X-Ray Hip Unilateral With Pelvis 2-3 Views Completed Medical Devices Description No Information Available Encounters Type Date Location Provider Dx Diagnosis Office Visit 05/18/2021 10:30a Rebecca Galloway MD M2 5.552 Pain in left hip M77.01 Medial epicondylitis, right elbow Z96.651 Presence of right artificial knee joint Z87.81 Personal history of (healed) traumatic fracture Assessments Date Code Description Provider 07/15/2021 M25.552 Pain in left hip Katelyn Green P. T.A. 07/12/2021 M25.552 Pain in left hip Danamarie Ortol ano, PRINT INSPECTOR 07/08/2021 M25.552 Pain in left hip Danamarie Ortol ano, PRINT INSPECTOR 07/05/2021 M25.552 Pain in left hip Brianne og, MSPT 07/01/2021 M25.552 Pain in left hip Danamarie Ortol ano, PRINT INSPECTOR 06/28/2021 M25.552 Pain in left hip Danamarie Ortol ano, PRINT INSPECTOR 06/24/2021 M25.552 Pain in left hip Brianne og, MSPT 06/21/2021 M25.552 Pain in left hip Katelyn Scee P. T.A. 06/15/2021 M25.552 Pain in left hip Katelyn Scee P. T.A. 06/13/2021 M25.552 Pain in left hip Katelyn Scee P. T.A. 06/09/2021 M25.552 Pain in left hip Danamarie Ortol ano, PRINT INSPECTOR 06/06/2021 M25.552 Pain in left hip Katelyn Scee P. T.A. 05/30/2021 M25.552 Pain in left hip Brianne Ca a, MSPT 05/18/2021 M25.552 Pain in left hip Clarice segovia MD 05/18/2021 M77.01 Medial epicondylitis, right elbo w Clarice Galloway MD 05/18/2021 Z96.651 Presence of right artificial kne e joint Clarice Galloway MD 05/18/2021 Z87.81 Personal history of (healed) tra umatic fracture Clarice Galloway MD Plan of Treatment Future Appointment(s):* 07/29/2021 10:30 am - ESTRELLITA Shaffer at Physical Therapy * 07/26/2021 10:00 am - Katelyn Faulknere P.T.A. at Physical Therapy * 07/22/2021 11:00 am - Samina Shultz PTA at Physical Therapy Functional Status Description No Information Available Mental Status Description No Information Available Referrals Refer to Reason for Referral Status Appt Radha Carl MD Physical Therapy Left Hip, n o auth req based on medical necessity, patient is going to [facility] passed to PT dept sw. Created [address] [facility], [address] [place] [phone] Radha Galloway MD Physical Therapy Left Hip no auth req per automated line, patient going to [facility] passed to PT dept sw. Created [address] [facility], [address] [place] [address] [phone]
--- OUTSIDE RECORDS SUMMARY | 2021-09-04 11:38 | CCD | Continuity of Care Document ---
Author Author Malissa MADDEN [facility] Organization Unknown Address [address] [address] Phone [phone] Care Team Providers Care Pbx Inspector Name Role Phone Goyo Reeder LEAD PROCESS ENGINEER AUTM [phone] ErnstTelma claudio LEAD PROCESS ENGINEER AUTM [phone] Problems Description No Active Problems Social History [...] 1 by mouth every day Unknown Nystatin 623139Koth/GM Powder apply to rash 2-3 times daily [...] Information Available Procedures Date Code Description Status 07/08/2021 03437 Therapeutic Procedure, Each 15 M inutes Completed 07/05/2021 69023 Therapeutic Procedure, Each 15 M inutes Completed 07/01/2021 28349 Therapeutic Procedure, Each 15 M inutes Completed 06/28/2021 27105 Therapeutic Procedure, Each 15 M inutes Completed 06/24/2021 10782 Therapeutic Procedure, Each 15 M inutes Completed 06/21/2021 60417 Therapeutic Procedure, Each 15 M inutes Completed 06/15/2021 69622 Therapeutic Procedure, Each 15 M inutes Completed 06/13/2021 90600 Therapeutic Procedure, Each 15 M inutes Completed 06/09/2021 02643 Therapeutic Procedure, Each 15 M inutes Completed 06/06/2021 28829 Therapeutic Procedure, Each 15 M inutes Completed 05/30/2021 15754 Physical Therapy Eval - Low Comp lexity Completed 05/18/2021 44488 Office/Outpatient Established Mo d MDM 30-39 Min Completed 05/18/2021 83225 X-Ray Knee Ap & Lateral W/Obliqu es Three Views Completed 05/18/2021 39742 X-Ray Hip Unilateral With Pelvis 2-3 Views Completed Medical Devices Description No Information Available Encounters Type Date Location Provider Dx Diagnosis Office Visit 05/18/2021 10:30a Rebecca Galloway MD M2 5.552 Pain in left hip M77.01 Medial epicondylitis, right elbow Z96.651 Presence of right artificial knee joint Z87.81 Personal history of (healed) traumatic fracture Assessments Date Code Description Provider 07/08/2021 M25.552 Pain in left hip Danamarie Ortol ano, PROTECTION ANALYST 07/05/2021 M25.552 Pain in left hip Brianne MJackeline og, MSPT 07/01/2021 M25.552 Pain in left hip Danamarie Ortol ano, PROTECTION ANALYST 06/28/2021 M25.552 Pain in left hip Danamarie Ortol ano, PROTECTION ANALYST 06/24/2021 M25.552 Pain in left hip Brianne MJackeline og, MSPT 06/21/2021 M25.552 Pain in left hip Katelyn Scee P. T.A. 06/15/2021 M25.552 Pain in left hip Katelyn Scee P. T.A. 06/13/2021 M25.552 Pain in left hip Katelyn Scee P. T.A. 06/09/2021 M25.552 Pain in left hip Danamarie Ortol ano, PROTECTION ANALYST 06/06/2021 M25.552 Pain in left hip Katelyn [...] Future Appointment(s):* 07/22/2021 11:00 am - Samina Madden, PROTECTION ANALYST at Physical Therapy * 07/20/2021 11:00 am - Samina Lewislano, PROTECTION ANALYST at Physical Therapy * 07/15/2021 10:30 am - Katelyn Scee P.T.A. at Physical Therapy Functional Status Description No Information Available Mental Status Description No Information Available Referrals Refer to Dr Reason for Referral Status Appt Date Radha Galloway MD Physical Therapy Left Hip, n o auth req based on medical necessity, patient is going to [facility] passed to PT dept sw. Created [address] [place] [address], [address] [address] [phone] Radha Galloway MD Physical Therapy Left Hip no auth req per automated line, patient going to [facility] passed to PT dept sw. Created [address] [place] [address], [facility] [address] [place] [address] [phone]
--- OUTSIDE RECORDS SUMMARY | 2021-09-04 11:38 | CCD | Continuity of Care Document ---
Author Author Malissa MADDEN [facility] Organization Unknown Address [address] [address] Phone [phone] Care Team Providers Care Preparatory Technician Name Role Phone Goyo Reeder BAGGAGE HANDLER AUTM [phone] ErnstTelma claudio BAGGAGE HANDLER AUTM [phone] Problems Description No Active Problems Social History [...] 1 by mouth every day Unknown Nystatin 892579Obmk/GM Powder apply to rash 2-3 times daily [...] Information Available Procedures Date Code Description Status 08/02/2021 81033 Therapeutic Procedure, Each 15 M inutes Completed 07/29/2021 21975 Therapeutic Procedure, Each 15 M inutes Completed 07/26/2021 82353 Therapeutic Procedure, Each 15 M inutes Completed 07/22/2021 60391 Therapeutic Procedure, Each 15 M inutes Completed 07/19/2021 38756 Therapeutic Procedure, Each 15 M inutes Completed 07/15/2021 38680 Therapeutic Procedure, Each 15 M inutes Completed 07/12/2021 28802 Therapeutic Procedure, Each 15 M inutes Completed 07/08/2021 41681 Therapeutic Procedure, Each 15 M inutes Completed 07/05/2021 86440 Therapeutic Procedure, Each 15 M inutes Completed 07/01/2021 10402 Therapeutic Procedure, Each 15 M inutes Completed 06/28/2021 65638 Therapeutic Procedure, Each 15 M inutes Completed 06/24/2021 33578 Therapeutic Procedure, Each 15 M inutes Completed 06/21/2021 71705 Therapeutic Procedure, Each 15 M inutes Completed 06/15/2021 14222 Therapeutic Procedure, Each 15 M inutes Completed 06/13/2021 60637 Therapeutic Procedure, Each 15 M inutes Completed 06/09/2021 65597 Therapeutic Procedure, Each 15 M inutes Completed 06/06/2021 35630 Therapeutic Procedure, Each 15 M inutes Completed 05/30/2021 99909 Physical Therapy Eval - Low Comp lexity Completed 05/18/2021 82300 Office/Outpatient Established Mo d MDM 30-39 Min Completed 05/18/2021 23865 X-Ray Knee Ap & Lateral W/Obliqu es Three Views Completed 05/18/2021 56611 X-Ray Hip Unilateral With Pelvis 2-3 Views Completed Medical Devices Description No Information Available Encounters Type Date Location Provider Dx Diagnosis Office Visit 05/18/2021 10:30a Rebecca Galloway MD M2 5.552 Pain in left hip M77.01 Medial epicondylitis, right elbow Z96.651 Presence of right artificial knee joint Z87.81 Personal history of (healed) traumatic fracture Assessments Date Code Description Provider 08/02/2021 M25.552 Pain in left hip Danamarie Ortol ano, POTLINE MONITOR 07/29/2021 M25.552 Pain in left hip Brianne M. Vesp a, MSPT 07/26/2021 M25.552 Pain in left hip Katelyn Scee P. T.A. 07/22/2021 M25.552 Pain in left hip Danamarie Ortol ano, POTLINE MONITOR 07/19/2021 M25.552 Pain in left hip Angela Silva Kra demetrius, POTLINE MONITOR 07/15/2021 M25.552 Pain in left hip Katelyn Scee P. T.A. 07/12/2021 M25.552 Pain in left hip Danamarie Ortol ano, POTLINE MONITOR 07/08/2021 M25.552 Pain in left hip Danamarie Ortol ano, POTLINE MONITOR 07/05/2021 M25.552 Pain in left hip Brianne M. Vesp a, MSPT 07/01/2021 M25.552 Pain in left hip Danamarie Ortol ano, POTLINE MONITOR 06/28/2021 M25.552 Pain in left hip Danamarie Ortol ano, POTLINE MONITOR 06/24/2021 M25.552 Pain in left hip Brianne M. Vesp a, MSPT 06/21/2021 M25.552 Pain in left hip Katelyn Scee P. T.A. 06/15/2021 M25.552 Pain in left hip Katelyn Scee P. T.A. 06/13/2021 M25.552 Pain in left hip Katelyn Scee P. T.A. 06/09/2021 M25.552 Pain in left hip Danamarie Ortol ano, POTLINE MONITOR 06/06/2021 M25.552 Pain in left hip Katelyn Scee P. T.A. 05/30/2021 M25.552 Pain in left hip Brianne M. Vesp a, MSPT 05/18/2021 M25.552 Pain in left hip D. Andres segovia MD 05/18/2021 M77.01 Medial epicondylitis, right elbo w D. Andres Galloway MD 05/18/2021 Z96.651 Presence of right artificial kne e joint D. Peter Vaneenenaam, MD 05/18/2021 Z87.81 Personal history of (healed) tra umatic fracture Clarice Galloway MD Plan of Treatment Future Appointment(s):* 08/19/2021 11:30 am - Samina Madden POTLINE MONITOR at Physical Therapy * 08/16/2021 11:00 am - Samina Madden PTA at Physical Therapy * 08/12/2021 11:00 am - Angela Hart POTLINE MONITOR at Physical Therapy * 08/08/2021 11:00 am - Brianne Arana MSPT at Physical Therapy * 08/24/2021 2:00 pm - Clarice Galloway MD at [place] Functional Status Description No Information Available Mental Status Description No Information Available Referrals Refer to Dr Reason for Referral Status Appt Date Radha Galloway MD Physical Therapy Left Hip, n o auth req based on medical necessity, patient is going to [facility] passed to PT dept sw. Created [address] [place] [phone] Radha Galloway MD Physical Therapy Left Hip no auth req per automated line, patient going to [facility] passed to PT dept sw. Created [address] [place] [phone] [phone]
--- OUTSIDE RECORDS SUMMARY | 2021-09-04 11:38 | CCD | Continuity of Care Document ---
Author Author Malissa MADDEN [facility] Organization Unknown Address [address] [address] Phone [phone] Care Team Providers Care Cloth Folder Machine Name Role Phone Goyo Reeder SYRUP SHED SUPERVISOR AUTM [phone] ErnstTelma claudio SYRUP SHED SUPERVISOR AUTM [phone] Problems Description No Active Problems Social History [...] 1 by mouth every day Unknown Nystatin 338450Rzkc/GM Powder apply to rash 2-3 times daily [...] Available Procedures Date Code Description Status 07/29/2021 02068 Therapeutic Procedure, Each 15 M inutes Completed 07/26/2021 24266 Therapeutic Procedure, Each 15 M inutes Completed 07/22/2021 86796 Therapeutic Procedure, Each 15 M inutes Completed 07/19/2021 98610 Therapeutic Procedure, Each 15 M inutes Completed 07/15/2021 88663 Therapeutic Procedure, Each 15 M inutes Completed 07/12/2021 52274 Therapeutic Procedure, Each 15 M inutes Completed 07/08/2021 45069 Therapeutic Procedure, Each 15 M inutes Completed 07/05/2021 78622 Therapeutic Procedure, Each 15 M inutes Completed 07/01/2021 24544 Therapeutic Procedure, Each 15 M inutes Completed 06/28/2021 93904 Therapeutic Procedure, Each 15 M inutes Completed 06/24/2021 93825 Therapeutic Procedure, Each 15 M inutes Completed 06/21/2021 09619 Therapeutic Procedure, Each 15 M inutes Completed 06/15/2021 15308 Therapeutic Procedure, Each 15 M inutes Completed 06/13/2021 86348 Therapeutic Procedure, Each 15 M inutes Completed 06/09/2021 33323 Therapeutic Procedure, Each 15 M inutes Completed 06/06/2021 76382 Therapeutic Procedure, Each 15 M inutes Completed 05/30/2021 22372 Physical Therapy Eval - Low Comp lexity Completed 05/18/2021 70701 Office/Outpatient Established Mo d MDM 30-39 Min Completed 05/18/2021 79252 X-Ray Knee Ap & Lateral W/Obliqu es Three Views Completed 05/18/2021 61313 X-Ray Hip Unilateral With Pelvis 2-3 Views [...] M25.552 Pain in left hip [facility] 07/26/2021 M25.552 Pain in left hip Katelyn Scee P. T.A. 07/22/2021 M25.552 Pain in left hip Danamarie Ortol ano, RADIO INTERFERENCE INVESTIGATOR 07/19/2021 M25.552 Pain in left hip Angela Silva Kra demetrius, RADIO INTERFERENCE INVESTIGATOR 07/15/2021 M25.552 Pain in left hip Katelyn Scee P. T.A. 07/12/2021 M25.552 Pain in left hip Danamarie Ortol ano, RADIO INTERFERENCE INVESTIGATOR 07/08/2021 M25.552 Pain in left hip Danamarie Ortol ano, RADIO INTERFERENCE INVESTIGATOR 07/05/2021 M25.552 Pain in left hip Rbianne M. Vesp a, MSPT 07/01/2021 M25.552 Pain in left hip Danamarie Ortol ano, RADIO INTERFERENCE INVESTIGATOR 06/28/2021 M25.552 Pain in left hip Danamarie Ortol ano, RADIO INTERFERENCE INVESTIGATOR 06/24/2021 M25.552 Pain in left hip Brianne M. Vesp a, MSPT 06/21/2021 M25.552 Pain in left hip Katelyn Scee P. T.A. 06/15/2021 M25.552 Pain in left hip Katelyn Scee P. T.A. 06/13/2021 M25.552 Pain in left hip Katelyn Scee P. T.A. 06/09/2021 M25.552 Pain in left hip Danamarie Ortol ano, RADIO INTERFERENCE INVESTIGATOR 06/06/2021 M25.552 Pain in left hip Katelyn [...] Physical Therapy * 08/08/2021 11:00 am - GOGO ShafferT at Physical Therapy * 08/05/2021 11:00 am - Samina Madden PTA at Physical Therapy * 08/02/2021 11:00 am - Samina Madden PTA at Physical Therapy * 08/24/2021 2:00 pm - Clarice Galloway MD at [place] Functional Status Description No Information Available Mental Status Description No Information Available Referrals Refer to Dr Reason for Referral Status Appt Date Radha Galloway MD Physical Therapy Left Hip, n o auth req based on medical necessity, patient is going to [facility] passed to PT dept sw. Created [address] [place] [phone] Radha Galloway MD Physical Therapy Left Hip no auth req per automated line, patient going to [facility] passed to PT dept sw. Created [address] [place] [phone]
--- OUTSIDE RECORDS SUMMARY | 2021-09-04 11:38 | CCD | Continuity of Care Document ---
Author Author Malissa MIRANDA [facility] Organization Unknown Address [address] [place] [address], [facility] [address] [place] [address] Phone [phone] Care Team Providers Care Disbursing Agent Name Role Phone Goyo Reeder DATA CONTROL ASSISTANT AUTM [phone] ErnstTelma claudio DATA CONTROL ASSISTANT AUTM [phone] Problems Description No Active Problems Social History [...] 1 by mouth every day Unknown Nystatin [id number]/GM Powder apply to rash 2-3 times daily [...] Available Procedures Date Code Description Status 08/05/2021 16598 Therapeutic Procedure, Each 15 M inutes Completed 08/02/2021 85620 Therapeutic Procedure, Each 15 M inutes Completed 07/29/2021 31961 Therapeutic Procedure, Each 15 M inutes Completed 07/26/2021 41748 Therapeutic Procedure, Each 15 M inutes Completed 07/22/2021 66496 Therapeutic Procedure, Each 15 M inutes Completed 07/19/2021 26024 Therapeutic Procedure, Each 15 M inutes Completed 07/15/2021 54658 Therapeutic Procedure, Each 15 M inutes Completed 07/12/2021 11429 Therapeutic Procedure, Each 15 M inutes Completed 07/08/2021 87403 Therapeutic Procedure, Each 15 M inutes Completed 07/05/2021 43381 Therapeutic Procedure, Each 15 M inutes Completed 07/01/2021 50255 Therapeutic Procedure, Each 15 M inutes Completed 06/28/2021 44947 Therapeutic Procedure, Each 15 M inutes Completed 06/24/2021 75185 Therapeutic Procedure, Each 15 M inutes Completed 06/21/2021 81170 Therapeutic Procedure, Each 15 M inutes Completed 06/15/2021 91155 Therapeutic Procedure, Each 15 M inutes Completed 06/13/2021 56008 Therapeutic Procedure, Each 15 M inutes Completed 06/09/2021 81909 Therapeutic Procedure, Each 15 M inutes Completed 06/06/2021 18952 Therapeutic Procedure, Each 15 M inutes Completed 05/30/2021 20625 Physical Therapy Eval - Low Comp lexity Completed 05/18/2021 98397 Office/Outpatient Established Mo d MDM 30-39 Min Completed 05/18/2021 64378 X-Ray Knee Ap & Lateral W/Obliqu es Three Views Completed 05/18/2021 57108 X-Ray Hip Unilateral With Pelvis 2-3 Views [...] Pain in left hip Danamarie Ortol ano, PLUG WIRER 08/02/2021 M25.552 Pain in left hip Danamarie Ortol ano, PLUG WIRER 07/29/2021 M25.552 Pain in left hip Brianne M. Vesp a, MSPT 07/26/2021 M25.552 Pain in left hip Katelyn Scee P. T.A. 07/22/2021 M25.552 Pain in left hip Danamarie Ortol ano, PLUG WIRER 07/19/2021 M25.552 Pain in left hip Angela Shira Kra demetrius, PLUG WIRER 07/15/2021 M25.552 Pain in left hip Katelyn Scee P. T.A. 07/12/2021 M25.552 Pain in left hip Danamarie Ortol ano, PLUG WIRER 07/08/2021 M25.552 Pain in left hip Danamarie Ortol ano, PLUG WIRER 07/05/2021 M25.552 Pain in left hip Brianne M. Vesp a, MSPT 07/01/2021 M25.552 Pain in left hip Danamarie Ortol ano, PLUG WIRER 06/28/2021 M25.552 Pain in left hip Danamarie Ortol ano, PLUG WIRER 06/24/2021 M25.552 Pain in left hip Brianne M. Vesp a, MSPT 06/21/2021 M25.552 Pain in left hip Katelyn Scee P. T.A. 06/15/2021 M25.552 Pain in left hip Katelyn Scee P. T.A. 06/13/2021 M25.552 Pain in left hip Katelyn Scee P. T.A. 06/09/2021 M25.552 Pain in left hip Danamarie Ortol ano, PLUG WIRER 06/06/2021 M25.552 Pain in left hip Katelyn [...] MD Plan of Treatment Future Appointment(s):* 08/12/2021 10:30 am - Katelyn WillisTEtta at Physical Therapy * 08/19/2021 11:30 am - Samina Shultz PTA at Physical Therapy * 08/16/2021 11:00 am - Samina Shultz PTA at Physical Therapy * 08/24/2021 2:00 pm - Clarice Galloway MD at [facility] Functional Status Description No Information Available Mental Status Description No Information Available Referrals Refer to Dr Reason for Referral Status Appt Date Radha Galloway MD Physical Therapy Left Hip, n o auth req based on medical necessity, patient is going to [facility] passed to PT dept sw. Created [address] [place] [phone] Radha Galloway MD Physical Therapy Left Hip no auth req per automated line, patient going to [facility] passed to PT dept sw. Created [address] [place] [id number] [phone]
--- OUTSIDE RECORDS SUMMARY | 2021-09-04 11:39 | CCD ---
Author Author [facility] Organization [facility] Address Unknown Phone Unavailable Care Team Providers Care Carver And Checkerer Specials Name Role Phone Mahin GALLO MD Unavailable Unavailable GALLOMahin MD Unavailable Unavailable GALLO, L KAREN SEVILLA Unavailable Unavailable GALLO, L KAREN SEVILLA Unavailable Unavailable GALLO, L KAREN SEVILLA Unavailable Unavailable GALLO, L KAREN SEVILLA Unavailable Unavailable GALLO, L KAREN SEVILLA Unavailable Unavailable GALLO, L KAREN SEVILLA Unavailable Unavailable GALLO, L KAREN SEVILLA Unavailable Unavailable GALLO, L KAREN SEVILLA Unavailable Unavailable GALLO, L KAREN SEVILLA Unavailable Unavailable GALLO, L KAREN SEVILLA Unavailable Unavailable GALLO, L KAREN SEVILLA Unavailable Unavailable GALLO, L KAREN SEVILLA Unavailable Unavailable GALLO, L KAREN SEVILLA Unavailable Unavailable GALLO, L KAREN SEVILLA Unavailable Unavailable GALLO, L KAREN SEVILLA Unavailable Unavailable GALLO, L KAREN SEVILLA Unavailable Unavailable GALLO, L KAREN SEVILLA Unavailable Unavailable GALLO, L KAREN SEVILLA Unavailable Unavailable GALLO, L KAREN SEVILLA Unavailable Unavailable GALLO, L KAREN SEVILLA Unavailable Unavailable GALLO, L KAREN SEVILLA Unavailable Unavailable GALLO, L KAREN SEVILLA Unavailable Unavailable GALLO, L KAREN SEVILLA Unavailable Unavailable GALLO, L KAREN SEVILLA Unavailable Unavailable GALLO, L KAREN SEVILLA Unavailable Unavailable GALLO, L KAREN SEVILLA Unavailable Unavailable GALLO, L KAREN SEVILLA Unavailable Unavailable GALLO, L KAREN SEVILLA Unavailable Unavailable GALLO, L KAREN SEVILLA Unavailable Unavailable GALLO, L KAREN SEVILLA Unavailable Unavailable Mahin GALLO KAREN SEVILLA Unavailable Unavailable SABINO L KAREN SEVILLA Unavailable Unavailable SABINO L KAREN SEVILLA Unavailable Unavailable SABINO L KAREN SEVILLA Unavailable Unavailable SABINO, L KAREN SEVILLA Unavailable Unavailable SABINO, L KAREN SEVILLA Unavailable Unavailable SABINO, L KAREN SEVILLA Unavailable Unavailable SABINO, L KAREN SEVILLA Unavailable Unavailable SABINO L KAREN SEVILLA Unavailable Unavailable SABINO, L KAREN SEVILLA Unavailable Unavailable SABINO, L KAREN SEVILLA Unavailable Unavailable SABINO, L KAREN SEVILLA Unavailable Unavailable GALLO, L KAREN SEVILLA Unavailable Unavailable Soosairaj, Telma Unavailable Unavailable Soosairaj, Telma Unavailable Unavailable Soosairaj, Telma Unavailable Unavailable Soosairaj, Telma Unavailable Unavailable Soosairaj, Telma Unavailable Unavailable Soosairaj, Telma Unavailable Unavailable Soosairaj, Telma Unavailable Unavailable Soosairaj, Telma Unavailable Unavailable Soosairaj, Telma Unavailable Unavailable Soosairaj, Telma Unavailable Unavailable Soosairaj, Telma Unavailable Unavailable Soosairaj, Telma Unavailable Unavailable Soosairaj, Telma Unavailable Unavailable Soosairaj, Telma Unavailable Unavailable Soosairaj, Telma Unavailable Unavailable Soosairaj, Telma Unavailable Unavailable Soosairaj, Telma Unavailable Unavailable Soosairaj, Telma Unavailable Unavailable Soosairaj, Telma Unavailable Unavailable Soosairaj, Telma Unavailable Unavailable Soosairaj, Telma Unavailable Unavailable Soosairaj, Telma Unavailable Unavailable Soosairaj, Telma Unavailable Unavailable Soosairaj, Telma Unavailable Unavailable Soosairaj, Telma Unavailable Unavailable Soosairaj, Telma Unavailable Unavailable Soosairaj, Telma Unavailable Unavailable Soosairaj, Telma Unavailable Unavailable Soosairaj, Telma Unavailable Unavailable Soosairaj, Telma Unavailable Unavailable Soosairaj, Telma Unavailable Unavailable Soosairaj, Telma Unavailable Unavailable Soosairaj, Telma Unavailable Unavailable Radha Galloway MD Unavailable Unavailable Radha Galloway MD Unavailable Unavailable Radha Galloway MD Unavailable Unavailable Radha Galloway MD Unavailable Unavailable Vaneenenaam, Radha Campos MD Unavailable Unavailable Vaneenenaam, Radha Campos MD Unavailable Unavailable Vaneenenaam, Radha Campos MD Unavailable Unavailable Vaneenenaam, Radha Campos MD Unavailable Unavailable Vaneenenaam, Radha Campos MD Unavailable Unavailable Vaneenenaam, Radha Campos MD Unavailable Unavailable Vaneenenaam, Radha Campos MD Unavailable Unavailable Vaneenenaam, Radha Campos MD Unavailable Unavailable Vaneenenaam, Radha Campos MD Unavailable Unavailable Vaneenenaam, Radha Campos MD Unavailable Unavailable Vaneenenaam, Radha Campos MD Unavailable Unavailable Vaneenenaam, Radha Campos MD Unavailable Unavailable Vaneenenaam, Radha Campos MD Unavailable Unavailable Vaneenenaam, Radha Campos MD Unavailable Unavailable Vaneenenaam, Radha Campos MD Unavailable Unavailable Vaneenenaam, Radha Campos MD Unavailable Unavailable Vaneenenaam, Radha Campos MD Unavailable Unavailable Vaneenenaam, Radha Campos MD Unavailable Unavailable Vaneenenaam, Radha Campos MD Unavailable Unavailable Vaneenenaam, Radha Campos MD Unavailable Unavailable Vaneenenaam, Radha Campos MD Unavailable Unavailable Vaneenenaam, Radha Campos MD Unavailable Unavailable Vaneenenaam, Radha Campos MD Unavailable Unavailable Vaneenenaam, Radha Campos MD Unavailable Unavailable Vaneenenaam, Radha Campos MD Unavailable Unavailable Vaneenenaam, Radha Campos MD Unavailable Unavailable Vaneenenaam, Radha Campos MD Unavailable Unavailable Vaneenenaam, Radha Campos MD Unavailable Unavailable Vaneenenaam, Radha Campos MD Unavailable Unavailable Vaneenenaam, Radha Campos MD Unavailable Unavailable Vaneenenaam, Radha Campos MD Unavailable Unavailable Vaneenenaam, Radha Campos MD Unavailable Unavailable Vaneenenaam, Radha Campos MD Unavailable Unavailable Vaneenenaam, Radha Campos MD Unavailable Unavailable Vaneenenaam, Radha Campos MD Unavailable Unavailable Vaneenenaam, Radha Campos MD Unavailable Unavailable Vaneenenaam, Radha Campos MD Unavailable Unavailable Vaneenenaam, Radha Campos MD Unavailable Unavailable Vaneenenaam, Radha Campos MD Unavailable Unavailable Vaneenenaam, Radha Campos MD Unavailable Unavailable Vaneenenaam, Radha Campos MD Unavailable Unavailable Vaneenenaam, Radha Campos MD Unavailable Unavailable Re-disclosure Warning The records that you are about to access may contain information from federally-assisted alcohol or drug abuse programs. If such information is present, then the following federally mandated warning applies: This information has been disclosed to you from records protected by federal confidentiality rules (42 CFR part 2). The federal rules prohibit you from making any further disclosure of this information unless further disclosure is expressly permitted by the written consent of the person to whom it pertains or as otherwise permitted by 42 CFR part 2. A general authorization for the release of medical or other information is NOT sufficient for this purpose. The Federal rules restrict any use of the information to criminally investigate or prosecute any alcohol or drug abuse patient.The records that you are about to access may contain highly sensitive health information, the redisclosure of which is protected by Article 27-F of the [facility] Public Health law. If you continue you may have access to information: Regarding HIV / AIDS; Provided by facilities licensed or operated by the [facility] Office of Mental Health; or Provided by the [facility] Office for People With Developmental Disabilities. If such information is present, then the following [facility] mandated warning applies: This information has been disclosed to you from confidential records which are protected by state law. State law prohibits you from making any further disclosure of this information without the specific written consent of the person to whom it pertains, or as otherwise permitted by law. Any unauthorized further disclosure in violation of state law may result in a fine or mcc sentence or both. A general authorization for the release of medical or other information is NOT sufficient authorization for further disc losure. Family History Family Member Name Family Member Gender Family Member Status Date o f Status Description Data Source(s) Unknown Unknown Problem MEDENT ([facility]) Unknown Male Problem MEDENT ([facility]) Unknown Unknown Problem MEDENT ([facility]) father Unknown Unknown Problem MEDENT ([facility], ) Encounters Encounter Providers Location Date Indications Data Source(s ) OFFICE OUTPATIENT VISIT 15 MINUTES Attender: Radha hernandez MD Physical Therapy 08/24/2021 01:00:00 PM EST MEDENT ([facility] ) Unknown [address] [facility] [place] [address] 07/04/2021 12:00:00 AM EDT eCW1 ([facility]) Outpatient Attender: Telma LucioReferrer: Telma rangel 06/28/2021 12:08:00 PM EDT L aid not working [facility] L aid not working Office Visit, Est Pt., Level [address] [place] [address] 06/27/2021 12:00:00 AM EDT eCW1 ([facility]) Outpatient Attender: Radha Galloway MD Physical Therap y 05/18/2021 10:30:00 AM EDT MEDENT ([facility]) Unknown [address] [facility] [place] [address] 05/14/2021 12:00:00 AM EDT eCW1 ([facility]) Unknown [address] [facility] [place] [address] 05/14/2021 12:00:00 AM EDT eCW1 ([facility]) Outpatient Attender: Telma LucioReferrer: Telma rangel 03/01/2021 11:00:00 AM EDT Adjust lost aid that was found/retiurn [facility] Adjust lost aid that was found/retiurn n [facility] Outpatient Attender: Telma LucioReferrer: Telma rangel 02/10/2021 12:59:00 PM EDT Adjust for more VC control [facility] Adjust for more VC control Outpatient Attender: Telma LucioReferrer: Telma rangel 02/01/2021 12:35:00 PM EDT Change earhook on old aid [facility] Change earhook on old aid Outpatient Attender: Telma LucioReferrer: Telma rangel 01/27/2021 02:07:00 PM EDT Repair fit [facility] Repair fit Outpatient Attender: Telma Lucio 01/07/2021 12:59:0 0 PM [facility]: Telma LucioReferrer: Telma rangel 12/31/2020 07:48:00 AM EDT 1 week f/u [facility] 1 week f/u Office Visit, Est Pt., Level 4 PC [address] [place] [address] 12/27/2020 12:00:00 AM EDT eCW1 ([facility]) Outpatient Attender: Telma Lucio 12/24/2020 08:57:0 0 AM EST New ALFARO Fit [facility] New ALFARO Fit Unknown [address] [facility] [place] [address] 12/15/2020 12:00:00 AM EST eCW1 ([facility]) Outpatient Attender: Telma Lucio 12/09/2020 0 9:20:00 AM EST Order ALFARO and EMs [facility] Order ALFARO and EMs Unknown [address] [facility] [place] [address] 12/06/2020 12:00:00 AM EST eCW1 ([facility]) Outpatient Attender: Telma LucioReferrer: Telma rangel 12/03/2020 12:59:00 PM EST Lost L ALFARO [facility] Lost L ALFARO Outpatient Attender: KAREN Abdul 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 09:45:00 AM EST MEDENT ([facility]) Outpatient Attender: Telma Lucio 09/28/2020 1 2:54:00 PM EST Change slimtube/adjust/RM [facility] Change slimtube/adjust/RM Outpatient Attender: Telma Lucio 08/26/2020 0 1:41:00 PM EST Telephone consult for problem with hearing aid [facility] Telephone consult for problem with heari ng aid Outpatient Attender: Telma Lucio 08/17/2020 1 0:33:00 AM EST ALFARO Batteries [facility] ALFARO Batteries Office Visit, Est Pt., Level [address] PC [address] [place] [address] 07/27/2020 12:00:00 AM EDT eCW1 ([facility]) Unknown [address] [facility] [place] [address] 07/27/2020 12:00:00 AM EDT eCW1 ([facility]) Outpatient Attender: Telma Lucio 07/19/2020 1 0:36:00 AM EDT Fluctuations in hearing [facility] Fluctuations in hearing Unknown [address] [facility] [place] [address] 07/19/2020 12:00:00 AM EDT eCW1 ([facility]) Unknown [address] [facility] [place] [address] 07/19/2020 12:00:00 AM EDT eCW1 ([facility]) Immunizations Vaccine Date Status Description Data Source(s) COVID-19 VACCINE Pfizer 08/10/2021 12:00:00 AM EDT completed [facility] Vaccine Series Complete: YESThis Data wa s Submitted to [facility] [employer]. COVID-19 VACCINE Moderna 12/24/2020 12:00:00 AM EST completed [facility] Vaccine Series Complete: YESThis Data wa s Submitted to [facility] [employer]. COVID-19 dose #2 given elsewhere Unspecified 12/14/2020 11:2 3:00 AM EST completed eCW1 ([facility]) COVID-19 dose #2 given elsewhere Unspecified 12/14/2020 11:2 3:00 AM EST completed eCW1 ([facility]) COVID-19 dose #2 given elsewhere Unspecified 12/14/2020 11:2 3:00 AM EST completed eCW1 ([facility]) COVID-19 dose #2 given elsewhere Unspecified 12/14/2020 11:2 3:00 AM EST completed eCW1 ([facility]) COVID-19 dose #2 given elsewhere Unspecified 12/14/2020 11:2 3:00 AM EST completed eCW1 ([facility]) COVID-19 dose #1 given elsewhere Unspecified 11/26/2020 11:2 2:00 AM EST completed eCW1 ([facility]) COVID-19 dose #1 given elsewhere Unspecified 11/26/2020 11:2 2:00 AM EST completed eCW1 ([facility]) COVID-19 dose #1 given elsewhere Unspecified 11/26/2020 11:2 2:00 AM EST completed eCW1 ([facility]) COVID-19 dose #1 given elsewhere Unspecified 11/26/2020 11:2 2:00 AM EST completed eCW1 ([facility]) COVID-19 dose #1 given elsewhere Unspecified 11/26/2020 11:2 2:00 AM EST completed eCW1 ([facility]) COVID-19 VACCINE Moderna 11/26/2020 12:00:00 AM EST completed [facility] Vaccine Series Complete: NOThis Data was Submitted to [facility] [employer]. zoster 09/14/2020 11:21:00 AM EST completed e CW1 ([facility]) zoster 09/14/2020 11:21:00 AM EST completed e CW1 ([facility]) zoster 09/14/2020 11:21:00 AM EST completed e CW1 ([facility]) zoster 09/14/2020 11:21:00 AM EST completed e CW1 ([facility]) zoster 09/14/2020 11:21:00 AM EST completed e CW1 ([facility]) VARICELLA-ZOSTER VIRUS GLYCOPROTEIN E,REC/AS01B ADJUVA NT/PF 09/14/2020 12:00:00 AM EST completed [facility] Medications Medication Brand Name Start Date Product Form Dose Route Admi nistrative Instructions Pharmacy Instructions Status Indications Reaction Description Data Source(s) May Have - UNK 07/04/2021 12:00:00 AM EDT active May Have - eCW1 ([facility]) May Have - UNK 07/04/2021 12:00:00 AM EDT active May Have - eCW1 ([facility]) 10 mg 08/10/2020 12:00:00 AM EDT tablet 30 TAKE ONE TABLET BY MOUTH EVERY DAY TAKE ONE TABLET BY MOUTH EVERY DAY SOLD: 08/10/2020 [facility] cetirizine hydrochloride 10 MG Oral Tablet Cetirizine HCl 10 MG Cetirizine HCl 10 MG 07/27/2020 12:00:00 AM EDT 1.0 {tablet} activ e Cetirizine HCl 10 MG eCW1 ([facility]) cetirizine hydrochloride 10 MG Oral Tablet Cetirizine HCl 10 MG Cetirizine HCl 10 MG 07/27/2020 12:00:00 AM EDT 1.0 {tablet} activ e Cetirizine HCl 10 MG eCW1 ([facility]) cetirizine hydrochloride 10 MG Oral Tablet Cetirizine HCl 10 MG Cetirizine HCl 10 MG 07/27/2020 12:00:00 AM EDT 1.0 {tablet} activ e Cetirizine HCl 10 MG eCW1 ([facility]) cetirizine hydrochloride 10 MG Oral Tablet Cetirizine HCl 10 MG Cetirizine HCl 10 MG 07/27/2020 12:00:00 AM EDT 1.0 {tablet} activ e Cetirizine HCl 10 MG eCW1 ([facility]) cetirizine hydrochloride 10 MG Oral Tablet Cetirizine HCl 10 MG Cetirizine HCl 10 MG 07/27/2020 12:00:00 AM EDT 1.0 {tablet} suspe nded Cetirizine HCl 10 MG eCW1 ([facility]) cetirizine hydrochloride 10 MG Oral Tablet Cetirizine HCl 10 MG Cetirizine HCl 10 MG 07/27/2020 12:00:00 AM EDT 1.0 {tablet} activ e Cetirizine HCl 10 MG eCW1 ([facility]) cetirizine hydrochloride 10 MG Oral Tablet Cetirizine HCl 10 MG Cetirizine HCl 10 MG 07/27/2020 12:00:00 AM EDT 1.0 {tablet} activ e Cetirizine HCl 10 MG eCW1 ([facility]) cetirizine hydrochloride 10 MG Oral Tablet Cetirizine HCl 10 MG Cetirizine HCl 10 MG 07/27/2020 12:00:00 AM EDT 1.0 {tablet} suspe nded Cetirizine HCl 10 MG eCW1 ([facility]) cetirizine hydrochloride 10 MG Oral Tablet Cetirizine HCl 10 MG Cetirizine HCl 10 MG 07/27/2020 12:00:00 AM EDT 1.0 {tablet} suspe nded Cetirizine HCl 10 MG eCW1 ([facility]) cetirizine hydrochloride 10 MG Oral Tablet Cetirizine HCl 10 MG Cetirizine HCl 10 MG 07/27/2020 12:00:00 AM EDT 1.0 {tablet} suspe nded Cetirizine HCl 10 MG eCW1 ([facility]) cetirizine hydrochloride 10 MG Oral Tablet Cetirizine HCl 10 MG Cetirizine HCl 10 MG 07/27/2020 12:00:00 AM EDT 1.0 {tablet} suspe nded Cetirizine HCl 10 MG eCW1 ([facility]) Insurance Providers Payer name Policy type / Coverage type Policy ID Covered constitution party ID Covered constitution party's relationship to wang Policy Wang Plan Information [facility] [place] B [id number] Self [id number] [facility] [id number] [id number]6119.0 Self [id number] [facility] [employer] Part B [id number] 2.16.840.1.369959.3.227.99.991.56943.0 Self [id number] [facility] [employer] Part B [id number] 2.16.840.1.051390.3.227.99.991.83595.0 Self [id number] [facility] Part B [id number] Self [id number] [facility] [employer] Part B [id number] Self [id number] [facility] [id number] 2.16.840.1.836327.3.227.99.991.73531.0 Self [id number] [facility] [id number] Self [id number] [facility] [employer] Part B [id number] 2.16.840.1.652624.3.227.99.991.23101.0 Self [id number] [facility] [employer] Part B [id number] 2.16.840.1.473248.3.227.99.991.00362.0 Self [id number] [facility] [employer] Part B [id number] 2.16.840.1.315270.3.227.99.991.91835.0 Self [id number] [facility] [employer] Part B [id number] Self [id number] [facility] [employer] Part B [id number] 2.16840.1.035014.3.227.99.991.49665.0 Self [id number] [facility] [employer] Part B [id number] 2.16840.1.329506.3.227.99.991.10269.0 Self 4 [id number] [facility] [employer] Part B [id number] Self [id number] [facility] [employer] Part B [id number] 2840.1.626188.3.227.99.991.42702.0 Self [id number] [facility] [employer] Part B [id number] 2840.1.250919.3.227.99.991.41416.0 Self 4 [id number] [facility] [employer] Part B [id number] Self [id number] [facility] [employer] Part B [id number] Self [id number] [facility] [employer] Part B [id number] ..1.984397.3.227.99.991.27634.0 Self [id number] MEDICARE [id number] A MEDICARE [id number] [facility] [id number] Commercial [id number] 2..1.391123.3.227.99.8646.9509.0 Self [id number] Tish [id number] 502 Commercial [id number] 2..1.733028.3.227.99.8646.9509.0 Self [id number] Commercial [id number] 2..1.855169.3.227.99.8646.9509.0 Self [id number] (pr) Medigap Part B [id number] 2..1.061161.3.227.99 .991.94165.0 Self [id number] (pr) Medigap Part B [id number] 2..1.390577.3.227.99 .991.81617.0 Self [id number] (pr) Medigap Part B [id number] Self [id number] (pr) Medigap Part B [id number] Self [id number] (pr) Medigap Part B [id number] 2..1.680380.3.227.99 .991.07080.0 Self [id number] (pr) Medigap Part B [id number] 2..1.247069.3.227.99 .991.31459.0 Self [id number] (pr) Medigap Part B [id number] 2.0.1.350813.3.227.99 .991.57997.0 Self [id number] (pr) Medigap Part B [id number] 2.16.840.1.667939.3.227.99 .991.62433.0 Self [id number] (pr) Medigap Part B [id number] 2.0.1.040432.3.227.99 .991.14201.0 Self [id number] (pr) Medigap Part B [id number] 2.0.1.182587.3.227.99 .991.13584.0 Self [id number] (pr) Medigap Part B [id number] Self [id number] (pr) Medigap Part B [id number] 2.0.1.046505.3.227.99 .991.78270.0 Self [id number] (pr) Medigap Part B [id number] Self [id number] (pr) Medigap Part B [id number] 2.0.1.548929.3.227.99 .991.44181.0 Self [id number] (pr) Medigap Part B [id number] Self [id number] Medicare [place] [id number] 2.0.1.209011.3.227.99.991.82446.0 Self [id number] (pr) Medigap Part B [id number] Self [id number] (pr) Medigap Part B [id number] 2.840.1.890536.3.227.99 .991.77892.0 Self [id number] (pr) Medigap Part B [id number] 2.16.840.1.987880.3.227.99 .991.12018.0 Self [id number] (pr) Medigap Part B [id number] Self [id number] (pr) Medigap Part B [id number] Self [id number] Medicare [place] Primary [id number] Self [id number] Medicare [place] Medicare Primary [id number] 2.840.1.746443.3.227.99.991.61517.0 Self [id number] Medicare [place] Medicare Primary [id number] Self [id number] Medicare [place] Medicare Primary [id number] 2.840.1.118111.3.227.99.991.43644.0 Self [id number] Medicare [place] Medicare Primary [id number] 2.840.1.685737.3.227.99.991.92086.0 Self [id number] Medicare [place] Medicare Primary [id number] Self [id number] Medicare [place] Medicare Primary [id number] Self [id number] Medicare [place] Medicare Primary [id number] Self [id number] Medicare [place] Medicare Primary [id number] 2.16.840.1.540226.3.227.99.991.61841.0 Self [id number] Medicare [place] Medicare Primary [id number] 2.16.840.1.153257.3.227.99.991.27291.0 Self [id number] Medicare [place] Medicare Primary [id number] 2.16840.1.680321.3.227.99.991.69670.0 Self [id number] Medicare [place] Medicare Primary [id number] 2.16840.1.228620.3.227.99.991.71332.0 Self [id number] [place] Medicare Primary [id number] Self [id number] Medicare [place] Medicare Primary [id number] Self [id number] Medicare [place] Medicare Primary [id number] 2.16840.1.794110.3.227.99.991.37311.0 Self [id number] Medicare [place] Medicare Primary [id number] Self [id number] Medicare [place] Medicare Primary [id number] 2.16840.1.203176.3.227.99.991.64733.0 Self [id number] Medicare [place] Medicare Primary [id number] 2.16.840.1.320550.3.227.99.991.31415.0 Self [id number] Medicare [place] Medicare Primary [id number] Self [id number] ANSI-Commercial [id number] MEDICARE [id number] SP [id number] CENTER [id number] SP [id number] MEDICARE C [id number] S [id number] O [id number] S [id number] Program Medigap Part B [id number] Self [id number] Program Medigap Part B [id number].[id number] Self [id number] Program Medigap Part B [id number].[id number] Self [id number] Program Medigap Part B [id number].[id number] Self [id number] CENTER [id number] SP [id number] Program Medigap Part B [id number] MRN.[id number] Self [id number] Program Medigap Part B [id number] MRN.991.[id number] Self [id number] Program Medigap Part B [id number] MRN.[id number] Self [id number] Program Medigap Part B [id number].[id number] Self [id number] ANSI-Commercial [id number] ANSI-Medicare Part B [id number] Program Medigap Part B [id number] .537678.3.227 .99.991.74491.0 Self [id number] Program Medigap Part B [id number] ..572070.3.227 .99.991.35940.0 Self [id number] Program Medigap Part B [id number] ..714522.3.227 .99.991.88309.0 Self [id number] Program Medigap Part B [id number] ..066911.3.227 .99.991.01119.0 Self [id number] Program Medigap Part B [id number] ..849261.3.227 .99.991.61164.0 Self [id number] MEDICARE C [id number] S [id number] A Program Medigap Part B [id number] ..157157.3.227 .99.991.98270.0 Self [id number] [facility] [id number] SP [id number] ANSI-Medicare Part B [id number] ANSI-Medicare Part B [id number] ANSI-Commercial [id number] MEDICARE [id number] SP [id number] A Program Medigap Part B [id number] ..021908.3.227 .99.991.54266.0 Self [id number] Program Medigap Part B [id number] .1.258439.3.227 .99.991.03351.0 Self [id number] Program Medigap Part B [id number] .1.033555.3.227 .99.991.43714.0 Self [id number] Program Medigap Part B [id number] .1.616002.3.227 .99.991.56761.0 Self [id number] Program Medigap Part B [id number] .1.952052.3.227 .99.991.40089.0 Self [id number] Medigap Part B [id number] .1.238005.3.227.99.1629.149 46.0 Self [id number] Medicare [place] Primary [id number] .[id number]85.0 Self [id number] ANSI-Commercial [id number] ANS-Medicare Part B [id number] [facility] Part B [id number] .99.991.69051.0 Self [id number] [facility] Part B [id number]767.482 25.0 Self [id number] Medicare Natl Gov't Servi Medicare Primary [id number] Self [id number] [place] Medicare Primary [id number] Self 0 [id number] Medicare [place]/[facility] Medicare Primary [id number] Self 0 [id number] Medicare [place]/[facility] Medicare Primary [id number] Self 0 [id number] MEDICARE -O/P [id number] 18 [id number] [facility]-O/P [id number] 18 0 [id number] Problems, Conditions, and Diagnoses Code Display Name Description Problem Type Effective Dates Data Source(s) H93.13 Bilateral tinnitus Tinnitus of both ears Problem 07/04/2021 12:00:00 AM EDT eCW1 ([facility]) M19.90 Chronic osteoarthritis Chronic osteoarthritis Problem 06/27/2021 12:00:00 AM EDT eCW1 ([facility]) Surgeries/Procedures Procedure Description Date Indications Data Source(s) THERAPEUTIC PX 1/> AREAS EACH 15 MIN EXERCISES 12:00:00 AM EST [facility] ([facility] ) X-Ray Spine Thoracolumbar Ap & Lateral 2 Views 12:00:00 AM EST [facility] ([facility] ) OFFICE OUTPATIENT VISIT 15 MINUTES 08/24/2021 12:00:00 AM EST [facility] ([facility] ) THERAPEUTIC PX 1/> AREAS EACH 15 MIN EXERCISES 12:00:00 AM EST [facility] ([facility] ) THERAPEUTIC PX 1/> AREAS EACH 15 MIN EXERCISES 12:00:00 AM EDT [facility] ([facility] ) THERAPEUTIC PX 1/> AREAS EACH 15 MIN EXERCISES 12:00:00 AM EDT [facility] ([facility] ) THERAPEUTIC PX 1/> AREAS EACH 15 MIN EXERCISES 12:00:00 AM EDT [facility] ([facility] ) THERAPEUTIC PX 1/> AREAS EACH 15 MIN EXERCISES 12:00:00 AM EDT [facility] ([facility] ) THERAPEUTIC PX 1/> AREAS EACH 15 MIN EXERCISES 12:00:00 AM EDT [facility] ([facility] ) THERAPEUTIC PX 1/> AREAS EACH 15 MIN EXERCISES 12:00:00 AM EDT [facility] ([facility] ) THERAPEUTIC PX 1/> AREAS EACH 15 MIN EXERCISES 12:00:00 AM EDT [facility] ([facility] ) THERAPEUTIC PX 1/> AREAS EACH 15 MIN EXERCISES 12:00:00 AM EDT [facility] ([facility] ) THERAPEUTIC PX 1/> AREAS EACH 15 MIN EXERCISES 12:00:00 AM EDT [facility] ([facility] ) THERAPEUTIC PX 1/> AREAS EACH 15 MIN EXERCISES 12:00:00 AM EDT [facility] ([facility] ) THERAPEUTIC PX 1/> AREAS EACH 15 MIN EXERCISES 12:00:00 AM EDT [facility] ([facility] ) THERAPEUTIC PX 1/> AREAS EACH 15 MIN EXERCISES 021 12:00:00 AM EDT [facility] ([facility] ) THERAPEUTIC PX 1/> AREAS EACH 15 MIN EXERCISES 021 12:00:00 AM EDT [facility] ([facility] ) THERAPEUTIC PX 1/> AREAS EACH 15 MIN EXERCISES 021 12:00:00 AM EDT [facility] ([facility] ) THERAPEUTIC PX 1/> AREAS EACH 15 MIN EXERCISES 021 12:00:00 AM EDT [facility] ([facility] ) THERAPEUTIC PX 1/> AREAS EACH 15 MIN EXERCISES 021 12:00:00 AM EDT [facility] ([facility] ) THERAPEUTIC PX 1/> AREAS EACH 15 MIN EXERCISES 12:00:00 AM EDT [facility] ([facility] ) THERAPEUTIC PX 1/> AREAS EACH 15 MIN EXERCISES 12:00:00 AM EDT [facility] ([facility] ) THERAPEUTIC PX 1/> AREAS EACH 15 MIN EXERCISES 021 12:00:00 AM EDT [facility] ([facility] ) THERAPEUTIC PX 1/> AREAS EACH 15 MIN EXERCISES 021 12:00:00 AM EDT [facility] ([facility] ) THERAPEUTIC PX 1/> AREAS EACH 15 MIN EXERCISES 021 12:00:00 AM EDT [facility] ([facility] ) Physical Therapy Eval - Low Complexity 05/30/2021 12:0 0:00 AM EDT [facility] ([facility] ) X-Ray Hip Unilateral With Pelvis 2-3 Views 05/18/2021 12:00:00 AM EDT [facility] ([facility] ) RADIOLOGIC EXAMINATION KNEE 3 VIEWS 05/18/2021 12:00:0 0 AM EDT [facility] ([facility] ) OFFICE OUTPATIENT VISIT 25 MINUTES 05/18/2021 12:00:00 AM EDT [facility] ([facility] ) Results No Information Social History Code Duration Value Status Description Data Source(s ) Smoking 06/27/2021 12:00:00 AM EDT Never Smoker completed Never S moker eCW1 ([facility]) Smoking 06/27/2021 12:00:00 AM EDT Never Smoker completed Never S moker eCW1 ([facility]) Smoking 12/27/2020 12:00:00 AM EDT Never Smoker completed Never S moker eCW1 ([facility]) Smoking 12/27/2020 12:00:00 AM EDT Never Smoker completed Never S moker eCW1 ([facility]) Smoking 12/27/2020 12:00:00 AM EDT Never Smoker completed Never S moker eCW1 ([facility]) Smoking 10/05/2020 12:00:00 AM EST Non-smoker, Non-drink er, Non-drug User completed Non-smoker, Non-drinker, Non-drug User [facility] ([facility]) Smoking 07/27/2020 12:00:00 AM EDT Never Smoker completed Never S moker eCW1 ([facility]) Smoking 07/27/2020 12:00:00 AM EDT Never Smoker completed Never S moker eCW1 ([facility]) Smoking 07/27/2020 12:00:00 AM EDT Never Smoker completed Never S moker eCW1 ([facility]) Smoking 07/27/2020 12:00:00 AM EDT Never Smoker completed Never S moker eCW1 ([facility]) Smoking 07/27/2020 12:00:00 AM EDT Never Smoker completed Never S moker eCW1 ([facility]) Smoking 07/27/2020 12:00:00 AM EDT Never Smoker completed Never S moker eCW1 ([facility]) Vital Signs ID Date Data Source UNK Name Value Range Interpretation Code Description Data Source(s) Body weight 169.8 [lb_av] 169.8 [lb_av] eCW1 ([facility]) Body weight 77.02 kg 77.02 kg eCW1 ([facility]) Body height 66.25 [in_i] 66.25 [in_i] eCW1 ([facility]) Body mass index (BMI) [Ratio] 27.20 kg/m2 27.20 kg/m2 eCW1 ([facility]) Heart rate 83 /min 83 /min eCW1 ([facility]) Respiratory rate 18 /min 18 /min eCW1 ([facility]) Body temperature 97.4 [degF] 97.4 [degF] eCW1 ( [facility]) Systolic blood pressure 120 mm[Hg] 120 mm[Hg] e CW1 ([facility]) Diastolic blood pressure 80 mm[Hg] 80 mm[Hg] eCW1 ([facility]) Body height 64.50 [in_i] 64.50 [in_i] [facility] ([facility]) 5'4.50" Body weight 170.12 [lb_av] 170.12 [lb_av] eCW1 ([facility]) Body height 66.25 [in_i] 66.25 [in_i] eCW1 ([facility]) Body mass index (BMI) [Ratio] 27.25 kg/m2 27.25 kg/m2 eCW1 ([facility]) Heart rate 86 /min 86 /min eCW1 ([facility]) Respiratory rate 18 /min 18 /min eCW1 ([facility]) Body temperature 97.9 [degF] 97.9 [degF] eCW1 ( [facility]) Systolic blood pressure 122 mm[Hg] 122 mm[Hg] e CW1 ([facility]) Diastolic blood pressure 80 mm[Hg] 80 mm[Hg] eCW1 ([facility]) Body height 66 [in_i] 66 [in_i] [facility] ([facility], ) 5'6" Body weight 172.00 [lb_av] 172.00 [lb_av] [facility] T ([facility], ) Body mass index (BMI) [Ratio] 27.8 kg/m2 27.8 k g/m2 [facility] ([facility], ) [place] body weight 130 [lb_av] 130 [lb_av] [facility] T ([facility], ) Body weight 78.019 kg 78.019 kg [facility] ([facility], ) Body surface area Derived from formula 1.88 m2 1.88 m2 [facility] Body height 66 [in_i] 66 [in_i] [facility] ([facility]) 5'6" Body weight 172.00 [lb_av] 172.00 [lb_av] [facility] T ([facility]) Body mass index (BMI) [Ratio] 27.8 kg/m2 27.8 k g/m2 [facility] ([facility]) [place] body weight 130 [lb_av] 130 [lb_av] [facility] T ([facility]) Body weight 78.019 kg 78.019 kg [facility] ([facility]) Body surface area Derived from formula 1.88 m2 1.88 m2 [facility] ([facility]) Body weight 178.8 [lb_av] 178.8 [lb_av] eCW1 ([facility]) Body height 66.25 [in_i] 66.25 [in_i] eCW1 ([facility]) Body mass index (BMI) [Ratio] 28.64 kg/m2 28.64 kg/m2 eCW1 ([facility]) Heart rate 83 /min 83 /min eCW1 ([facility]) Respiratory rate 20 /min 20 /min eCW1 ([facility]) Body temperature 97.2 [degF] 97.2 [degF] eCW1 ( [facility]) Systolic blood pressure 130 mm[Hg] 130 mm[Hg] e CW1 ([facility]) Diastolic blood pressure 80 mm[Hg] 80 mm[Hg] eCW1 ([facility]) Patient Treatment Plan of Care Planned Activity Planned Date Details Description Data Source (s) February - 07/04/2021 12:00:00 AM EDT e CW1 ([facility]) February07/04/2021 12:00:00 AM EDT e CW1 ([facility]) cetirizine hydrochloride 10 MG Oral Tablet 07/27/2020 12:00:00 AM E DT eCW1 ([facility]) cetirizine hydrochloride 10 MG Oral Tablet 07/27/2020 12:00:00 AM E DT eCW1 ([facility]) cetirizine hydrochloride 10 MG Oral Tablet 07/27/2020 12:00:00 AM E DT eCW1 ([facility]) cetirizine hydrochloride 10 MG Oral Tablet 07/27/2020 12:00:00 AM E DT eCW1 ([facility]) cetirizine hydrochloride 10 MG Oral Tablet 07/27/2020 12:00:00 AM E DT eCW1 ([facility]) cetirizine hydrochloride 10 MG Oral Tablet 07/27/2020 12:00:00 AM E DT eCW1 ([facility])
[2021-09-04 12:00] VITALS: BP 143/69
== END 2021-09-04 12:42 | disposition home or self-care (01) ==
LOC: M ED 09:54 → EDBD 09:54 → M ED 12:42
DX: K59.00 Constipation, unspecified (principal); I10 Essential (primary) hypertension; K21.9 Gastro-esophageal reflux disease without esophagitis; Z91.048 Other nonmedicinal substance allergy status; Z79.899 Other long term (current) drug therapy

== ENCOUNTER → 2021-12-26 | Outpatient (CLI) | payer MEDICARE, OTHER ==
[2021-12-26 16:28] LABS: BASO # 0.1 10^3/uL (0.0-0.2); BASO % 1.2 % (0.0-1.0); EOS # 0.2 10^3/uL (0.0-0.5); EOS % 3.2 % (0.0-3.0); HEMATOCRIT 39.7 % (36.0-47.0); LYMPH # 2.1 10^3/uL (1.5-5.0); LYMPH % 36.4 % (24.0-44.0); MEAN CORPUSCULAR HGB CONC 32.7 g/dl (32.0-36.5); MEAN CORPUSCULAR VOLUME 91.5 fl (80.0-96.0); MONO # 0.5 10^3/uL (0.0-0.8); MONO % 9.2 % (2.0-8.0); NEUTROPHILS # 2.8 10^3/uL (1.5-8.5); NEUTROPHILS % 49.8 % (36.0-66.0); PLATELET COUNT, AUTOMATED 244 10^3/uL (150-450); RED BLOOD COUNT 4.34 10^6/uL (4.00-5.40); WHITE BLOOD COUNT 5.6 10^3/uL (4.0-10.0)
[2021-12-26 16:29] LABS: ALBUMIN 3.9 GM/DL (3.2-5.2); ALT/SGPT 26 U/L (12-78); BILIRUBIN,TOTAL 0.3 MG/DL (0.2-1.0); BLOOD UREA NITROGEN 18 MG/DL (7-18); CALCIUM LEVEL 8.9 MG/DL (8.8-10.2); CARBON DIOXIDE LEVEL 31 MEQ/L (21-32); CHLORIDE LEVEL 107 MEQ/L (98-107); CHOLESTEROL LEVEL 196 MG/DL (<200); CHOLESTEROL RISK RATIO 2.684 (<5); CREATININE FOR GFR 0.88 MG/DL (0.55-1.30); FREE T4 0.88 NG/DL (0.76-1.46); GLOMERULAR FILTRATION RATE > 60.0 (>32); GLUCOSE, FASTING 83 MG/DL (70-100); HDL CHOLESTEROL 73 MG/DL (>40); LDL CHOLESTEROL 110 MG/DL (<100); NON-HDL-C 123 MG/DL; POTASSIUM SERUM 4.9 MEQ/L (3.5-5.1); SODIUM LEVEL 141 MEQ/L (136-145); TOTAL PROTEIN 6.5 GM/DL (6.4-8.2); TRIGLYCERIDES LEVEL 64 MG/DL (<150)
[2021-12-26 16:38] LABS: HEMOGLOBIN A1c 5.3 %
== END ==
LOC: M WUC 12:07
PROVIDERS: ATTEND Nurse Practitioner Family
DX: E78.5 Hyperlipidemia, unspecified (principal); I10 Essential (primary) hypertension; R73.01 Impaired fasting glucose; Z79.1 Long term (current) use of non-steroidal anti-inflammatories (NSAID)

== ENCOUNTER → 2022-05-24 | Outpatient (CLI) | payer MEDICARE, OTHER ==
[~2022-05-24] MED LIST changes: +E-Z-GAS II EFFERVESCENT PACKET (SODIUM BICARB./CITRIC ACID/SIMETHICONE) As Ordered ONE; +E-Z-HD 98% w/w 340GM SUSP BTL As Ordered ONE; +E-Z-PAQUE 96% w/w SUSP 176GM BTL As Ordered ONE
== END ==
LOC: M RAD 08:17
PROVIDERS: ATTEND Otolaryngology
DX: J39.2 Other diseases of pharynx (principal); K21.00 Gastro-esophageal reflux disease with esophagitis, without bleeding

== ENCOUNTER → 2022-07-06 | Outpatient (CLI) | payer MEDICARE, OTHER ==
[~2022-07-06] MED LIST changes: -E-Z-GAS II EFFERVESCENT PACKET (SODIUM BICARB./CITRIC ACID/SIMETHICONE) As Ordered ONE; -E-Z-HD 98% w/w 340GM SUSP BTL As Ordered ONE; -E-Z-PAQUE 96% w/w SUSP 176GM BTL As Ordered ONE
[2022-07-06 13:06] LABS: BASO # 0.1 10^3/uL (0.0-0.2); BASO % 1.7 % (0.0-1.0); EOS # 0.3 10^3/uL (0.0-0.5); EOS % 5.3 % (0.0-3.0); HEMOGLOBIN 13.4 g/dl (12.0-15.5); LYMPH # 1.8 10^3/uL (1.5-5.0); LYMPH % 34.7 % (24.0-44.0); MEAN CORPUSCULAR HEMOGLOBIN 29.7 pg (27.0-33.0); MEAN CORPUSCULAR HGB CONC 31.9 g/dl (32.0-36.5); MEAN CORPUSCULAR VOLUME 93.1 fl (80.0-96.0); MONO # 0.5 10^3/uL (0.0-0.8); MONO % 8.9 % (2.0-8.0); NEUTROPHILS # 2.6 10^3/uL (1.5-8.5); PLATELET COUNT, AUTOMATED 234 10^3/uL (150-450); RED BLOOD COUNT 4.51 10^6/uL (4.00-5.40); WHITE BLOOD COUNT 5.3 10^3/uL (4.0-10.0)
[2022-07-06 13:34] LABS: HEMOGLOBIN A1c 5.2 %
[2022-07-06 14:26] LABS: ALBUMIN 3.7 GM/DL (3.2-5.2); ALT/SGPT 29 U/L (12-78); BILIRUBIN,TOTAL 0.5 MG/DL (0.2-1.0); BLOOD UREA NITROGEN 17 MG/DL (7-18); CALCIUM LEVEL 9.2 MG/DL (8.8-10.2); CARBON DIOXIDE LEVEL 30 MEQ/L (21-32); CHLORIDE LEVEL 107 MEQ/L (98-107); CHOLESTEROL LEVEL 198 MG/DL (<200); CHOLESTEROL RISK RATIO 2.571 (<5); CREATININE FOR GFR 0.76 MG/DL (0.55-1.30); GLOMERULAR FILTRATION RATE > 60.0 (>32); GLUCOSE, FASTING 83 MG/DL (70-100); HDL CHOLESTEROL 77 MG/DL (>40); LDL CHOLESTEROL 107 MG/DL (<100); NON-HDL-C 121 MG/DL; POTASSIUM SERUM 4.2 MEQ/L (3.5-5.1); SODIUM LEVEL 139 MEQ/L (136-145); TOTAL PROTEIN 6.6 GM/DL (6.4-8.2); TRIGLYCERIDES LEVEL 68 MG/DL (<150)
[2022-07-06 15:27] LABS: VITAMIN B12 LEVEL > 2000 PG/ML (247-911)
[2022-07-08 10:10] LABS: FOLATE 5.9 ng/mL (>3.0)
== END ==
LOC: M WUC 08:51
PROVIDERS: ATTEND Nurse Practitioner Family
DX: R68.89 Other general symptoms and signs (principal); E78.5 Hyperlipidemia, unspecified; I10 Essential (primary) hypertension; R73.01 Impaired fasting glucose

== ENCOUNTER → 2022-12-25 | Outpatient (CLI) | payer MEDICARE, OTHER ==
[2022-12-25 15:05] LABS: BASO # 0.1 10^3/uL (0.0-0.2); BASO % 1.5 % (0.0-1.0); EOS # 0.3 10^3/uL (0.0-0.5); EOS % 6.8 % (0.0-3.0); HEMATOCRIT 40.6 % (36.0-47.0); HEMOGLOBIN 12.9 g/dl (12.0-15.5); LYMPH # 1.8 10^3/uL (1.5-5.0); LYMPH % 38.5 % (24.0-44.0); MEAN CORPUSCULAR HEMOGLOBIN 29.9 pg (27.0-33.0); MEAN CORPUSCULAR HGB CONC 31.8 g/dl (32.0-36.5); MEAN CORPUSCULAR VOLUME 94.2 fl (80.0-96.0); MONO # 0.4 10^3/uL (0.0-0.8); MONO % 9.4 % (2.0-8.0); NEUTROPHILS % 43.6 % (36.0-66.0); PLATELET COUNT, AUTOMATED 237 10^3/uL (150-450); RED BLOOD COUNT 4.31 10^6/uL (4.00-5.40); WHITE BLOOD COUNT 4.6 10^3/uL (4.0-10.0)
[2022-12-25 15:29] LABS: FERRITIN 50.2 NG/ML (7.3-270.7); FREE T4 0.91 NG/DL (0.89-1.76)
[2022-12-25 15:30] LABS: THYROID STIMULATING HORMONE 3.225 uIU/ML (0.55-4.78)
[2022-12-25 15:47] LABS: ALBUMIN 3.6 G/DL (3.2-5.2); ALKALINE PHOSPHATASE 73 U/L (46-116); ALT/SGPT 22 U/L (7.0-40); AST/SGOT 24 U/L (<34); BILIRUBIN,TOTAL 0.5 MG/DL (0.3-1.2); BLOOD UREA NITROGEN 19 MG/DL (9-23); CALCIUM LEVEL 8.9 MG/DL (8.3-10.6); CARBON DIOXIDE LEVEL 28 MMOL/L (20-31); CHLORIDE LEVEL 106 MMOL/L (98-107); CREATININE FOR GFR 0.79 MG/DL (0.55-1.30); GLOMERULAR FILTRATION RATE > 60.0 (>32); GLUCOSE, FASTING 94 MG/DL (74-106); POTASSIUM SERUM 4.2 MMOL/L (3.5-5.1); SODIUM LEVEL 141 MMOL/L (136-145); THYROID PEROXIDASE ANTIBODY < 28.0 U/ML (<60.0)
== END ==
LOC: M WUC 08:51
PROVIDERS: ATTEND Nurse Practitioner Family
DX: E78.5 Hyperlipidemia, unspecified (principal); I10 Essential (primary) hypertension

== ENCOUNTER → 2023-07-16 | Outpatient (CLI) | payer MEDICARE, OTHER ==
[2023-07-16 11:20] LABS: BASO # 0.1 10^3/uL (0.0-0.2); BASO % 1.8 % (0.0-1.0); EOS # 0.3 10^3/uL (0.0-0.5); EOS % 6.5 % (0.0-3.0); HEMATOCRIT 40.7 % (36.0-47.0); LYMPH # 1.8 10^3/uL (1.5-5.0); LYMPH % 37.3 % (24.0-44.0); MEAN CORPUSCULAR HEMOGLOBIN 30.4 pg (27.0-33.0); MEAN CORPUSCULAR HGB CONC 31.9 g/dl (32.0-36.5); MEAN CORPUSCULAR VOLUME 95.1 fl (80.0-96.0); MONO # 0.5 10^3/uL (0.0-0.8); MONO % 9.3 % (2.0-8.0); NEUTROPHILS # 2.2 10^3/uL (1.5-8.5); NEUTROPHILS % 44.9 % (36.0-66.0); PLATELET COUNT, AUTOMATED 234 10^3/uL (150-450); RED BLOOD COUNT 4.28 10^6/uL (4.00-5.40); WHITE BLOOD COUNT 4.9 10^3/uL (4.0-10.0)
[2023-07-16 11:41] LABS: HEMOGLOBIN A1c 4.8 % (4.0-6.0)
[2023-07-16 11:43] LABS: ALBUMIN 3.6 G/DL (3.2-5.2); ALKALINE PHOSPHATASE 82 U/L (46-116); ALT/SGPT 23 U/L (7.0-40); AST/SGOT 23 U/L (<34); BILIRUBIN,TOTAL 0.5 MG/DL (0.3-1.2); BLOOD UREA NITROGEN 23 MG/DL (9-23); CARBON DIOXIDE LEVEL 31 MMOL/L (20-31); CHLORIDE LEVEL 109 MMOL/L (98-107); CHOLESTEROL LEVEL 197 MG/DL (<200); CHOLESTEROL RISK RATIO 2.68 (<5); CREATININE FOR GFR 0.88 MG/DL (0.55-1.30); GLOMERULAR FILTRATION RATE > 60.0 (>32); GLUCOSE, FASTING 84 MG/DL (74-106); HDL CHOLESTEROL 73.5 MG/DL (>40); LDL CHOLESTEROL 110.7 MG/DL (<100); NON-HDL-C 123.5 MG/DL; POTASSIUM SERUM 4.6 MMOL/L (3.5-5.1); SODIUM LEVEL 142 MMOL/L (136-145); TOTAL 25(OH) VITAMIN D 44.6 NG/ML (20.0-100.0); TOTAL PROTEIN 6.1 G/DL (5.7-8.2); TRIGLYCERIDES LEVEL 64 MG/DL (<150)
== END ==
LOC: M WUC 08:40
PROVIDERS: ATTEND Nurse Practitioner Family
DX: I10 Essential (primary) hypertension (principal); E78.5 Hyperlipidemia, unspecified; R73.01 Impaired fasting glucose; E55.9 Vitamin D deficiency, unspecified; Z79.899 Other long term (current) drug therapy

== ENCOUNTER → 2023-12-26 | Outpatient (CLI) | payer MEDICARE, OTHER ==
[2023-12-26 10:29] LABS: BASO # 0.1 10^3/uL (0.0-0.2); BASO % 2.1 % (0.0-1.0); EOS # 0.4 10^3/uL (0.0-0.5); EOS % 8.1 % (0.0-3.0); HEMATOCRIT 40.4 % (36.0-47.0); HEMOGLOBIN 13.1 g/dl (12.0-15.5); LYMPH # 1.5 10^3/uL (1.5-5.0); LYMPH % 32.5 % (24.0-44.0); MEAN CORPUSCULAR HEMOGLOBIN 30.5 pg (27.0-33.0); MEAN CORPUSCULAR HGB CONC 32.4 g/dl (32.0-36.5); MEAN CORPUSCULAR VOLUME 94.2 fl (80.0-96.0); MONO # 0.5 10^3/uL (0.0-0.8); MONO % 9.8 % (2.0-8.0); NEUTROPHILS # 2.2 10^3/uL (1.5-8.5); NEUTROPHILS % 47.3 % (36.0-66.0); PLATELET COUNT, AUTOMATED 240 10^3/uL (150-450); RED BLOOD COUNT 4.29 10^6/uL (4.00-5.40); WHITE BLOOD COUNT 4.7 10^3/uL (4.0-10.0)
[2023-12-26 10:38] LABS: ALBUMIN 3.5 G/DL (3.2-5.2); ALKALINE PHOSPHATASE 86 U/L (46-116); ALT/SGPT 22 U/L (7.0-40); AST/SGOT 19 U/L (<34); BILIRUBIN,TOTAL 0.5 MG/DL (0.3-1.2); BLOOD UREA NITROGEN 20 MG/DL (9-23); CALCIUM LEVEL 8.7 MG/DL (8.3-10.6); CARBON DIOXIDE LEVEL 30 MMOL/L (20-31); CHLORIDE LEVEL 108 MMOL/L (98-107); CHOLESTEROL LEVEL 178 MG/DL (<200); CHOLESTEROL RISK RATIO 2.66 (<5); CREATININE FOR GFR 0.81 MG/DL (0.55-1.30); GLOMERULAR FILTRATION RATE > 60.0 (>32); GLUCOSE, FASTING 85 MG/DL (74-106); HDL CHOLESTEROL 66.8 MG/DL (>40); LDL CHOLESTEROL 98.6 MG/DL (<100); NON-HDL-C 111.2 MG/DL; POTASSIUM SERUM 4.8 MMOL/L (3.5-5.1); SODIUM LEVEL 142 MMOL/L (136-145); TOTAL PROTEIN 5.9 G/DL (5.7-8.2); TRIGLYCERIDES LEVEL 63 MG/DL (<150)
[2023-12-26 10:40] LABS: TOTAL 25(OH) VITAMIN D 47.5 NG/ML (20.0-100.0)
[2023-12-26 11:02] LABS: HEMOGLOBIN A1c 5.3 % (4.0-6.0)
== END ==
LOC: M WUC 08:23
PROVIDERS: ATTEND Nurse Practitioner Family
DX: E78.5 Hyperlipidemia, unspecified (principal); I10 Essential (primary) hypertension; R73.01 Impaired fasting glucose; E55.9 Vitamin D deficiency, unspecified

== ENCOUNTER → 2024-06-17 | Outpatient (CLI) | payer MEDICARE, OTHER ==
[2024-06-17 10:14] LABS: BASO # 0.1 10^3/uL (0.0-0.2); BASO % 1.9 % (0.0-1.0); EOS # 0.3 10^3/uL (0.0-0.5); EOS % 6.8 % (0.0-3.0); HEMATOCRIT 41.5 % (36.0-47.0); HEMOGLOBIN 13.4 g/dl (12.0-15.5); LYMPH # 1.6 10^3/uL (1.5-5.0); LYMPH % 34.6 % (24.0-44.0); MEAN CORPUSCULAR HEMOGLOBIN 30.3 pg (27.0-33.0); MEAN CORPUSCULAR HGB CONC 32.3 g/dl (32.0-36.5); MEAN CORPUSCULAR VOLUME 93.9 fl (80.0-96.0); MONO # 0.4 10^3/uL (0.0-0.8); MONO % 8.9 % (2.0-8.0); NEUTROPHILS # 2.3 10^3/uL (1.5-8.5); NEUTROPHILS % 47.8 % (36.0-66.0); PLATELET COUNT, AUTOMATED 252 10^3/uL (150-450); RED BLOOD COUNT 4.42 10^6/uL (4.00-5.40); WHITE BLOOD COUNT 4.7 10^3/uL (4.0-10.0)
[2024-06-17 10:47] LABS: ALBUMIN 3.8 G/DL (3.2-5.2); ALKALINE PHOSPHATASE 100 U/L (46-116); ALT/SGPT 22 U/L (7.0-40); AST/SGOT 19 U/L (<34); BILIRUBIN,TOTAL 0.5 MG/DL (0.3-1.2); BLOOD UREA NITROGEN 18 MG/DL (9-23); CALCIUM LEVEL 9.6 MG/DL (8.3-10.6); CARBON DIOXIDE LEVEL 31 MMOL/L (20-31); CHLORIDE LEVEL 107 MMOL/L (98-107); CHOLESTEROL LEVEL 197 MG/DL (<200); CHOLESTEROL RISK RATIO 2.73 (<5); CREATININE FOR GFR 0.77 MG/DL (0.55-1.30); GLOMERULAR FILTRATION RATE > 60.0 (>32); GLUCOSE, FASTING 92 MG/DL (74-106); HDL CHOLESTEROL 71.9 MG/DL (>40); LDL CHOLESTEROL 111.5 MG/DL (<100); NON-HDL-C 125.1 MG/DL; POTASSIUM SERUM 4.2 MMOL/L (3.5-5.1); SODIUM LEVEL 142 MMOL/L (136-145); TOTAL PROTEIN 6.7 G/DL (5.7-8.2); TRIGLYCERIDES LEVEL 68 MG/DL (<150)
[2024-06-17 10:48] LABS: TOTAL 25(OH) VITAMIN D 37.9 NG/ML (20.0-100.0)
== END ==
LOC: M WUC 08:03
PROVIDERS: ATTEND Nurse Practitioner Family
DX: E78.5 Hyperlipidemia, unspecified (principal); I10 Essential (primary) hypertension; E55.9 Vitamin D deficiency, unspecified